=== PATIENT | male | born 1935 | race Caucasian/White ===

== ENCOUNTER 2018-08-01 10:15 | Emergency (ER) | payer MEDICARE, OTHER, SELFPAY ==
[2018-08-01] VITALS (10 sets, daily range): BP systolic 124–146; BP diastolic 58–75; PULSE 68–86; RESP 16–25; TEMP 36.7–37.2; O2SAT 94–99; BMI 30.7
--- NOTE | 2018-08-01 10:39 | EKG12_ITS ---
Test Reason : SOB Blood Pressure : / mmHG Vent. Rate : 074 BPM Atrial Rate : 074 BPM P-R Int : 144 ms QRS Dur : 098 ms QT Int : 396 ms P-R-T Axes : 057 033 016 degrees QTc Int : 439 ms Normal sinus rhythm Normal ECG Confirmed by JOVANI HICKEY, NEO ([id number]), editor in chief ARGELIA QUISPE ([id number]) on 08/03/2018 7:56:26 AM Referred By: Confirmed By:NEO HAHN MD
--- NOTE | 2018-08-01 10:39 | RAD_ITS ---
STUDY: X-RAY CHEST REASON FOR EXAM: Male, 83 years old. Cough and shortness of breath TECHNIQUE: AP COMPARISON: 07/31/2016 FINDINGS: 1.2 cm nodular density in the right upper lobe not evident on the prior study. There is a granuloma in the lateral left upper lobe, stable. There is no demonstrated pleural abnormality. Normal size heart. Normal mediastinum and martha. Normal visualized pulmonary arteries. There is atherosclerotic calcification of the aortic arch with tortuosity. No acute bony process. There is no demonstrated abnormality of the visualized soft tissue structures of the upper abdomen. RAD/Chest 1 View (Portable) IMPRESSION: 1. New nodular (1.2 cm) density in the right upper lobe could represent localized pneumonitis, fibrosis or neoplasm. Follow-up is needed. Electronically Signed: Sandeep Chávez MD at 11:16 EDT , Service support ,
[2018-08-01] MEDS: Ipratropium/Albuterol Sulfate 3 ML AMPUL.NEB INHALATION (11:20)
[2018-08-01] MEDS: Albuterol 2.5 MG/3 ML VIAL.NEB. INHALATION (11:20)
[2018-08-01 11:31] LABS: Absolute Lymphocyte Count 1.68 X10^3/ul (0.83-4.51); Absolute Neutrophil Count 2.5 X10^3/uL (2.0-7.7); Basophil# 0.03 X10^3/uL; Basophil% 0.5 % (0-1); Eosinophil# 0.34 X10^3/uL; Hematocrit 46.2 % (40-54); Hemoglobin 15.6 g/dl (13.0-16.5); Lymphocyte # 1.68 X10^3/ul (4.0); Lymphocyte % 29.5 % (19-41); Mean Corp Hgb Conc 33.8 g/gl (32-36); Mean Corpuscular Hgb 29.5 pg (27.0-32.0); Mean Corpuscular Volume 87.5 fL (80-94); Mean Platelet Vol. 10.6 fl (6.2-12.0); Monocyte% 19.3 % (0-10); Neutrophil # 2.54 X10^3/uL (2.7-7.7); Neutrophil % 44.5 % (47-70); POSITIVE COUNT NO; POSITIVE DIFFERENTIAL NO; POSITIVE MORPHOLOGY NO; Platelet Count 183 K/mm3 (150-450); RBC Distribution Width CV 15.1 % (11.6-14.6); RBC Distribution Width SD 48.8 fl (35.1-43.9); Red Blood Count 5.28 M/mm3 (4.6-6.2); White Blood Count 5.7 K/mm3 (4.4-11.0)
[2018-08-01 11:39] LABS: Anion Gap 3 (5-15); BUN 18 mg/dL (7-18); BUN/Creat Ratio 15.7 RATIO (10-20); Calcium,Total 8.7 mg/dL (8.5-10.1); Chloride 109 mmol/L (98-107); Creatinine, Serum 1.15 mg/dL (0.70-1.30); EST Glomerular Filtration Rate 65 mL/min (>60); Est Glom Filt Rate - Afr Amer 78 mL/min (>60); Estimated Creatinine Clearance 44.69 ml/min; Glucose 110 mg/dL (74-106); Potassium 3.9 mmol/L (3.5-5.1); Sodium Level 142 mmol/L (136-145)
--- NOTE | 2018-08-01 11:48 | CT_ITS ---
STUDY: CT CHEST WITHOUT CONTRAST REASON FOR EXAM: Male, 83 years old. Lung nodule RADIATION DOSAGE (If Supplied By Facility): CTDIvol = ( 14.23 ) mGy, DLP = ( 544.01 ) mGycm TECHNIQUE: Transaxial imaging was performed without the administration of intravenous contrast material. Multiplanar coronal and sagittal images were reformatted. Individualized dose optimization techniques were used for this CT. COMPARISON: Chest x-ray from earlier today. FINDINGS: The nodular density in the right upper lobe evident on the prior chest x-ray is not identified and is compatible with summation artifact on x-ray. A granuloma in the lateral left upper lobe is stable. There is no demonstrated pleural abnormality. Normal heart and pericardium. There are calcifications of the coronary arteries. There are multiple small lymph nodes within the mediastinum, which are normal in size and morphology most compatible with reactive lymph hyperplasia. There are calcified right hilar lymph nodes. Normal unenhanced pulmonary arteries. There is atherosclerotic tortuosity of the aortic arch and descending thoracic aorta. There are multi-level degenerative changes of the thoracic spine. There is a simple left renal cyst. There are granulomas calcifications of the liver and spleen. The adrenal glands are not focally enlarged. Small hiatal hernia is noted. CT/Chest without Contrast IMPRESSION: 1. NO pulmonary nodule/mass. Summation artifact on prior chest x-ray. 2. Chronic changes, as above. Electronically Signed: Sandeep Chávez MD at 12:36 EDT , Service support ,
--- NOTE | 2018-08-01 13:16 | ED.VISSUMM ---
- ER Visit Summary Date of Service: 08/01/18 Chief Complaint: Shortness of breath History of Present Illness: The patient is a 83 M who comes emergency department with shortness of breath. He states on he began to have a cough and feeling poorly. He states he has a headache with a cough. On Thursday he was feeling worse but today is feeling somewhat better than he did yesterday. He notes that he started to produce sputum today. He went to urgent care where he was noted to be wheezing and after treatment was below 90% on the pulse oximeter. Patient also notes some nasal congestion but no vomiting or diarrhea. History of WI hypertension high cholesterol as well as a remote history of lymphoma. He denies any known lung pathology such as asthma or COPD. Non-smoker Physical Examination: Afebrile vital signs are stable Gen: Well-nourished well-developed Head: Normocephalic atraumatic Eyes: Perrl EOMI ENT: TMs clear turbinate edema moist mucous membranes Neck: Supple no lymphadenopathy no JVD nontender CVS: Regular rate rhythm no murmurs normal S1-S2 Respiratory: No distress inspiratory and expiratory wheezing rhonchorous cough chest nontender Abdomen: Soft nontender nondistended normal bowel sounds no masses Back: Nontender Extremity: Nontender no edema Skin: Normal color no rash Neuro: alert orientated ?3 CN II-XII intact normal strength sensation reflexes gait cerebellar Psych: Normal affect normal mood Test Results: CBC and BMP are normal. Influenza negative. EKG sinus at a rate of 74 without ectopy. Chest x-ray showed a possible right upper lobe mass versus pneumonitis. CTA chest was negative for both of those. Emergency Department Course and Treatment: Patient received a DuoNeb and albuterol aerosol. Afterwards he feels significantly improved his lung sounds are now clear he ambulated 95-98%. On the right for him to have an albuterol MDI with spacer as well as burst prednisone. Return if worsening or concerns patient notes understanding of her plan is in agreement. Impression: 1. Acute viral respiratory illness 2. Bronchospasm This note was generated with Mixgaration software. It may contain incorrect words, spelling, and punctuation that were not noted in review of the chart prior to signing ED Disposition - Plan for ED Patient: Disposition: Home or Assisted Living Instructions: Acute Bronchitis, ED Wheezing Prescriptions: Albuterol Inhaler [Ventolin Hfa] 2 puff INHALATION Q4H PRN PRN #1 inhaler PRN Reason: Wheezing Prednisone [Deltasone] 40 mg PO DAILY #10 tab Referrals: Nisa Mejia PA [Primary Care Provider] - 3-5 Days if not improving
== END 2018-08-01 13:36 | disposition home or self-care (01) ==
PROVIDERS: Emergency Provider Emergency Medicine; Family Provider Physician Assistant; PCP Physician Assistant
DX: J06.9 Acute upper respiratory infection, unspecified (principal); J98.01 Acute bronchospasm; I25.2 Old myocardial infarction; I10 Essential (primary) hypertension; E78.00 Pure hypercholesterolemia, unspecified; Z85.72 Personal history of non-Hodgkin lymphomas; Z79.01 Long term (current) use of anticoagulants; Z79.899 Other long term (current) drug therapy
CPT/HCPCS: 71045; 71250; 80048; 85025; 87804; 93005; 94640; 94760; 99285; A4216

== ENCOUNTER → 2019-06-21 10:25 | Outpatient (CLI) | payer MEDICARE, OTHER, SELFPAY ==
[2019-05-31 13:04] VITALS: BMI 31.9
--- NOTE | 2019-06-21 10:30 | ECHOCS_ITS ---
Reason For Study: DYSPNEA Procedure This was a 2D Doppler, Color Flow transthoracic echocardiogram. The study was technically difficult. Contrast injection was performed. Exam performed in department. Left Ventricle Normal size and thickness. The estimated ejection fraction is 65 %. Stage 1 diastolic dysfunction. No regional wall motion abnormalities noted. Right Ventricle Normal size and thickness. Normal systolic function. Atria Normal left atrium. Normal right atrium. Normal atrial septum. Mitral Valve Mild focal mitral valve thickening. Mild mitral annular calcification extending into the posterior leaflet. Trivial mitral valve insufficiency. Tricuspid Valve Normal tricuspid valve. Trivial tricuspid valve insufficiency. Right ventricular systolic pressure estimated to be 35 mmHg. Aortic Valve Trisinus/trileaflet aortic valve. Pulmonic Valve Normal pulmonic valve. Great Vessels Normal aortic root. Normal arch. Normal inferior vena cava. Inferior vena cava collapse with sniff. Pericardium/Pleural No pericardial effusion. Medication 22 gauge I.V. with prn adaptor inserted into right arm. Diluted definity 4.0ml given slow IV push to enhance endocardial definition. MMode/2D Measurements & Calculations LVIDd: 5.0 cm IVSd: 1.1 cm Ao root diam: 3.3 cm LVIDs: 3.4 cm LVPWd: 1.1 cm RVDd: 2.8 cm FS: 32.3 % LAV(MOD-bp): 52.8 ml EDV(MOD-sp4): 118.4 ml SV(MOD-sp4): 83.1 ml LAV(MOD-bp) Indexed: 26.4 ml/m2 ESV(MOD-sp4): 35.3 ml LAV(MOD-sp2): 55.2 ml EF(MOD-sp4): 70.2 % LAV(MOD-sp4): 50.5 ml LA dimension(2D): 4.5 cm LA A4 area: 18.3 cm2 RA A4 area: 12.1 cm2 Time Measurements MV dec time: 0.29 sec Doppler Measurements & Calculations MV E max devendra: 54.0 cm/sec Lat Peak E' Devendra: 8.7 cm/sec Med Peak E' Devendra: 5.3 cm/sec MV A max devendra: 84.2 cm/sec E/E' lat: 6.2 E/E' med: 10.2 MV E/A: 0.64 Ao V2 max: 155.8 cm/sec LV V1 max: 108.3 cm/sec PA V2 max: 135.6 cm/sec Ao max P.7 mmHg LV V1 max P.7 mmHg TR max devendra: 279.3 cm/sec TR max P.3 mmHg Interpretation Summary The estimated ejection fraction is 65 %. Stage 1 diastolic dysfunction. Trivial mitral valve insufficiency. Trivial tricuspid valve insufficiency. Right ventricular systolic pressure estimated to be 35 mmHg. There is no comparison study available. The study was technically difficult. Contrast injection was performed. Ordering Physician: David Sánchez Referring Physician: TEO THAO Performed By: Odette Rouse, FRANCESCA, RVT
== END ==
PROVIDERS: PCP Physician Assistant; Referring Provider Internal Medicine Cardiovascular Disease; Visit Provider Internal Medicine Cardiovascular Disease
DX: R06.09 Other forms of dyspnea (principal); R60.9 Edema, unspecified; I25.10 Atherosclerotic heart disease of native coronary artery without angina pectoris; Z95.5 Presence of coronary angioplasty implant and graft
CPT/HCPCS: 93306; Q9957; A4216; C8929

== ENCOUNTER → 2019-06-24 09:39 | Outpatient (CLI) | payer MEDICARE, OTHER, SELFPAY ==
[2019-05-31 13:04] VITALS: BMI 31.9
--- NOTE | 2019-06-24 09:40 | CDU_ITS ---
Reason For Study: bruits Rt. Velocities/BP Lt. Velocities/BP Prox CCA 139.4/29.8 cm/sec. Prox CCA 95.9/25.6 cm/sec. Mid CCA 77.3/29.8 cm/sec. Mid CCA 94.9/17.6 cm/sec. Dist CCA 104.7/26.1 cm/sec. Dist CCA 112.0/20.6 cm/sec. Prox ICA 163.0/33.6 cm/sec. Prox ICA 90.0/28.6 cm/sec. Mid ICA 112.0/35.3 cm/sec. Mid ICA 108/28.6 cm/sec. Dist ICA 83.8/22.3 cm/sec. Dist ICA 171.8/33.6 cm/sec. Rt. ICA/CCA = 2.1. Lt. ICA/CCA = 1.8. Prox ECA 253.1/65.6 cm/sec. Prox ECA 122.9/26.1 cm/sec. Rt. Vert. 57.4/12.4 cm/sec. Right Extracranial There is heterogeneous, irregular atherosclerotic plaque noted in the right common carotid artery. There is heterogeneous, irregular atherosclerotic plaque noted in the right internal carotid artery. There is heterogeneous, irregular atherosclerotic plaque noted in the right external carotid artery. Antegrade flow is noted in the right vertebral artery. Left Extracranial There is heterogeneous, irregular atherosclerotic plaque noted in the left common carotid artery. There is heterogeneous, irregular atherosclerotic plaque noted in the left internal carotid artery. There is heterogeneous, irregular atherosclerotic plaque noted in the left external carotid artery. Flow could not be demonstrated in the left vertebral artery. Procedure Carotid Duplex [id number]. The exam was diagnostic. Exam performed in department. Interpretation Summary Flow could not be demonstrated in the left vertebral artery. Calcific plaque with shadowing right proximal common carotid. Calcific plaque with shadowing at the proximal right external carotid and internal carotid arteries 50-69% stenosis right proximal internal carotid >50% stenosis right external carotid Calcific plaque with shadowing distal left common carotid and proximal left internal and external carotid arteries 50-69% stenosis left internal carotid <50% stenosis left external carotid Patent, antegrade right vertebral Ordering Physician: David Sánchez Performed By: Dinesh Parker RVT
== END ==
PROVIDERS: PCP Physician Assistant; Referring Provider Internal Medicine Cardiovascular Disease; Visit Provider Internal Medicine Cardiovascular Disease
DX: R09.89 Other specified symptoms and signs involving the circulatory and respiratory systems (principal); E78.00 Pure hypercholesterolemia, unspecified
CPT/HCPCS: 93880

== ENCOUNTER → 2019-07-01 10:31 | Outpatient (CLI) | payer MEDICARE, OTHER, SELFPAY ==
[2019-05-31 13:04] VITALS: BMI 31.9
--- NOTE | 2019-07-01 10:32 | STEWCON_ITS ---
Reason For Study: CAD, ARGUETA Stress Results Protocol: Jarvis Protocol WITH DEFINITY Maximum Predicted HR: 137 bpm Target HR: 116 bpm % Maximum Predicted HR: 89 % DurationHeart Rate Stage (mm:ss) (bpm) BP Comment Baseline 64 150/70No Chest Pain; 4 ML Diluted Definity Jarvis Protocol Stage I 3:00 96 180/72No Chest Pain Jarvis Protocol Stage II 3:00 105 194/78No Chest Pain; Mild Dyspnea Jarvis Protocol Stage III 3:00 122 204/70No Chest Pain; Can't Get Air Recovery 71 138/70No Chest Pain; No Dyspnea Stress Duration: 9:00 mm:ss Maximum Stress HR: 122 bpm METS: 10 Baseline Echocardiogram Findings The estimated ejection fraction is 65 %. Stress Echo Wall motion Data Resting WM Intermediate WM Stress WM Resting Wall Motion Wall Motion Stress No regional wall motion No regional wall motion abnormalities noted. abnormalities noted. EKG Data The baseline ECG displays normal sinus rhythm. The patient exercised according to the regular Jarvis protocol for a total duration of 9:00. The maximum heart rate attained was 122 beats per minute. This was 89% of maximum predicted heart rate. The patient exercised into stage 4 of the Jarvis protocol. During stress, there were no ST or T wave changes noted to suggest ischemia. No clinical angina was noted. Interpretation Summary The estimated ejection fraction is 65 %. Normal, adequate, treadmill echocardiogram. Negative for ischemia by EKG and echocardiographic criteria. Rare PVCs noted. Hypertensive blood pressure response to exercise. Average exercise capacity for age. Test terminated due to the attainment of target heart rate. Final LVEF is 75%. Decrease sensitivity due to poor echo windows requiring Definity agent. Patient tolerated the procedure well. No complications. The study was technically difficult. Contrast injection was performed. Ordering Physician: David Sánchez Referring Physician: Levon Mejia Performed By: Hakeem Klein RCS
== END ==
PROVIDERS: PCP Physician Assistant; Referring Provider Internal Medicine Cardiovascular Disease; Visit Provider Internal Medicine Cardiovascular Disease
DX: I25.10 Atherosclerotic heart disease of native coronary artery without angina pectoris (principal); R06.09 Other forms of dyspnea; R60.9 Edema, unspecified; Z95.5 Presence of coronary angioplasty implant and graft
CPT/HCPCS: 93017; 93350; Q9957; A4216; C8928

== ENCOUNTER → 2019-11-14 08:25 | Outpatient (CLI) | payer MEDICARE, OTHER, SELFPAY ==
[2019-10-27 10:32] VITALS: BMI 28.0
[2019-11-14 10:16] LABS: AST(SGOT) 14 U/L (15-37); Alanine Aminotransfer ALT/SGPT 17 U/L (16-61); Albumin, Serum 3.5 g/dL (3.2-5.0); Alkaline Phosphatase 113 U/L (45-117); Bilirubin, Direct 0.18 mg/dL (0.00-0.30); Cholesterol 136 mg/dL (200); Globulin 3.7 g/dL (2.2-4.2); High Density Lipoprotein 50 mg/dL; Protein, Total 7.2 g/dL (6.4-8.2); Triglycerides 39 mg/dL; Very Low Density Lipoprotein 8 mg/dL (5-40)
== END ==
PROVIDERS: PCP Physician Assistant; Referring Provider Internal Medicine Cardiovascular Disease; Visit Provider Internal Medicine Cardiovascular Disease
DX: E78.00 Pure hypercholesterolemia, unspecified (principal)
CPT/HCPCS: 36415; 80061; 80076

== ENCOUNTER 2020-06-19 21:23 | Emergency (ER) | payer MEDICARE, OTHER, SELFPAY ==
[2019-10-27 10:32] VITALS: BMI 28.0
[2020-06-19] VITALS (11 sets, daily range): BP systolic 146–179; BP diastolic 70–110; PULSE 57–66; RESP 14–20; TEMP 36.8; O2SAT 94–96; BMI 31.4
--- NOTE | 2020-06-19 21:26 | CT_ITS ---
STUDY: CT HEAD STROKE PROTOCOL W/O CONTRAST INJECTION REASON FOR EXAM: Male, 85 years old. Neuro deficit, acute, stroke suspected RADIATION DOSAGE (If Supplied By Facility): CTDIvol = ( ) mGy, DLP = ( ) mGycm TECHNIQUE: Transaxial CT imaging of the brain was performed without administration of intravenous contrast material. Individualized dose optimization techniques were used for this CT. COMPARISON: No relevant priors. FINDINGS: Hypodensity and sulcal effacement in the medial aspect of the right occipital lobe appears to represent an acute to subacute infarct. Mild to moderate volume loss and hypodensity in the right frontal lobe is compatible with sequela from previous infarction. Normal soft tissue structures. Normal calvarium. There is moderate cerebral atrophy with widening of the extra-axial spaces and ventricular dilatation. There are areas of decreased attenuation within the white matter tracts of the supratentorial brain, consistent with microvascular disease changes. Normal basal ganglia and thalami. Normal brainstem. Normal cerebellum. There is no intracranial hemorrhage. Normal visualized paranasal sinuses. CT/STROKE Brain/Head without Cont IMPRESSION: 1. Hypodensity and sulcal effacement in the medial aspect of the right occipital lobe appears to represent an acute to subacute infarct. 2. Old right frontal lobe infarct with mild to moderate volume loss. N.B. : The above information has been verbally conveyed by Fan Saldivar MD to Dr James MD, on 06/19/2020 21:43:33 (ET). Electronically Signed: Fan Saldivar MD at 21:44 EST , Service support ,
--- NOTE | 2020-06-19 21:26 | EKG12_ITS ---
Test Reason : DYSRHYTHMIA Blood Pressure : / mmHG Vent. Rate : 057 BPM Atrial Rate : 057 BPM P-R Int : 142 ms QRS Dur : 100 ms QT Int : 436 ms P-R-T Axes : 057 032 014 degrees QTc Int : 424 ms Sinus bradycardia Otherwise normal ECG Confirmed by JOVANI HICKEY, NEO ([id number]), editor & co founder ARGELIA QUISPE ([id number]) on 06/20/2020 12:52:39 PM Referred By: CRISTIANA Confirmed By:NEO HAHN MD
[2020-06-19 21:49] LABS: Absolute Lymphocyte Count 2.13 X10^3/uL (0.83-4.51); Basophil# 0.05 X10^3/uL; Basophil% 0.8 % (0-1); Eosinophils% 9.1 % (0-5); Hematocrit 44.9 % (40-54); Hemoglobin 14.7 g/dL (13.0-16.5); Lymphocyte # 2.13 X10^3/ul (4.0); Lymphocyte % 32.2 % (19-41); Mean Corp Hgb Conc 32.7 g/dL (32-36); Mean Corpuscular Hgb 29.5 pg (27.0-32.0); Mean Corpuscular Volume 90.2 fL (80-94); Mean Platelet Vol. 10.3 fl (6.2-12.0); Monocyte# 0.84 X10^3/uL; Monocyte% 12.7 % (0-10); NRBC Flagged by Analyzer 0 % (0-5); Neutrophil # 2.98 X10^3/uL (2.7-7.7); Neutrophil % 44.9 % (47-70); Platelet Count 263 K/mm3 (150-450); RBC Distribution Width CV 14.1 % (11.6-14.6); RBC Distribution Width SD 46.5 fl (35.1-43.9); Red Blood Count 4.98 M/mm3 (4.6-6.2); White Blood Count 6.6 K/mm3 (4.4-11.0)
[2020-06-19 21:54] LABS: Partial Thromboplast Time 28.3 Seconds (24.1-36.2); Prothrombin Time (Protime)PT. 13.1 SECONDS (11.7-14.9)
[2020-06-19 22:05] LABS: Anion Gap 4 (5-15); BUN 25 mg/dL (7-18); BUN/Creat Ratio 18.7 RATIO (10-20); Calcium,Total 9.1 mg/dL (8.5-10.1); Chloride 106 mmol/L (98-107); Creatinine, Serum 1.34 mg/dL (0.70-1.30); EST Glomerular Filtration Rate 54 mL/min (>60); Est Glom Filt Rate - Afr Amer 65 mL/min (>60); Glucose 105 mg/dL (74-106); Potassium 3.6 mmol/L (3.5-5.1); Sodium Level 143 mmol/L (136-145)
--- NOTE | 2020-06-19 22:11 | ED.DCSUM_ITS ---
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 They state that at 830 the patient went into the restroom. His heard him sneeze several times. When he did not come out immediately she went to check on him and he was having difficulty pulling his pants up and could not use his left arm. He had significantly slurred speech. On arrival to the ED EMS notes the patient's symptoms are improving. Patient's only complaint is mild pain around his right eye. He denies falling or injuring himself. EMS had initially advised us that he was on Eliquis every other day, however after arrived she states that was Plavix that he is on, not Eliquis. 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 Luis Wilson, [facility]; 01/12/2004: Cutting balloon utilized to dilate in-stent restenosis; 3.0 X 8.0 TAXUS HOLLY to ostium of LAD proximal to previously placed stent Past Medical History - Allergies and Home Meds Allergies/Adverse Reactions: Allergies iodine Allergy (Severe, Verified 09/01/19 10:05) swelling: clarify at appt re; iodine dye shellfish derived Allergy (Verified 09/01/19 10:05) Anaphylaxis Kiepcxk-Epl-Ctu Reductase Inhibitor Adverse Reaction (Intermediate, Verified 09/01/19 10:05) intolerance; myalgias Primary Care Physician: Nisa Mejia PA [Primary Care Provider] - Prior records reviewed: Yes Lives: Spouse/ Significant Other Smoking Status: Never smoker Review of Systems General: Denies: Chills, Fever Eyes: Denies: Visual changes - bilaterally ENT: Denies: Bilateral ear pain Cardiovascular: Denies: Chest pain Respiratory: Denies: Dyspnea Gastrointestinal: Denies: Abdominal pain, Nausea, Vomiting Neurological: Reports: Headache, Weakness Hematologic: Denies: Easy bruising, Easy bleeding Allergy: Denies: Uticaria Physical Exam Vital Signs/Narrative: Vital Signs Temp Pulse Resp BP Pulse Ox 06/19/20 21:57 59 L 20 H 146/72 H 94 06/19/20 21:44 96 06/19/20 21:41 98.3 F 59 L 18 154/75 H 96 06/19/20 21:25 98.3 F 66 18 166/110 H 95 Inital Vital Signs reviewed: Yes General: Well nourished, Well developed Head: Normocephalic ENT: Moist mucous membranes Cardiovascular: Regular rate, Regular rhythm Respiratory: No distress, CTA bilaterally Abdomen: Soft, Nontender Skin: Normal color Neurological: Alert, Oriented x3, - - Patient alert and oriented. He does have some slurred speech, however is also edentulous and does not have his dentures. Slight loss of gaze to the left. Able to hold both arms and legs up off the bed without difficulty. No drift noted. Sensation intact. Diagnostic/Tx/Re-eval Impressions Brain CT 06/19/20 21:26 IMPRESSION: 1. Hypodensity and sulcal effacement in the medial aspect of the right occipital lobe appears to represent an acute to subacute infarct. 2. Old right frontal lobe infarct with mild to moderate volume loss. N.B. : The above information has been verbally conveyed by Fan Saldivar MD to Dr James MD, on 06/19/2020 21:43:33 (ET). Electronically Signed: Fan Saldivar MD at 21:44 EST , Service support , ADDENDUM: 06/19/202150 IMPRESSION: 1. Hypodensity and sulcal effacement in the medial aspect of the right occipital lobe appears to represent an acute to subacute infarct. 2. Old right frontal lobe infarct with mild to moderate volume loss. N.B. : The above information has been verbally conveyed by Fan Saldivar MD to Dr James MD, on 06/19/2020 21:43:33 (ET). Electronically Signed: Fan Saldivar MD at 21:44 EST , Service support , 06/19/20 21:26 Chest 1 View [RAD] Stat STROKE Brain/Head without Cont [CT] Stat Laboratory Results 06/19/20 06/19/20 06/19/20 21:35 21:35 21:35 WBC 6.6 RBC 4.98 Hgb 14.7 Hct 44.9 MCV 90.2 MCH 29.5 MCHC 32.7 RDW Std Deviation 46.5 H RDW Coeff of Ed 14.1 Plt Count 263 MPV 10.3 Immature Gran % (Auto) 0.300 Neut % (Auto) 44.9 L Lymph % (Auto) 32.2 Pine % (Auto) 12.7 H Eos % (Auto) 9.1 H Baso % (Auto) 0.8 Absolute Neuts (auto) 3.0 Absolute Lymphs (auto) 2.13 Nucleated RBC % 0 PT 13.1 INR 1.0 APTT 28.3 Sodium 143 Potassium 3.6 Chloride 106 Carbon Dioxide 33.0 H Anion Gap 4 L BUN 25 H Creatinine 1.34 H Estim Creat Clear Calc 35.70 Est GFR (MDRD) Af Amer 65 Est GFR (MDRD) Non-Af 54 L BUN/Creatinine Ratio 18.7 Glucose 105 Calcium 9.1 Troponin I < 0.015 - EKG Initial EKG Interpretation: Sinus Bradycardia - Sinus bradycardia 57 bpm. No acute ischemia. - Medical Decision Making Patient was seen immediately on arrival in the EMS bay. After quick examination patient was taken emergently to CT. On review of records patient had noted allergy to iodine and shellfish which caused anaphylaxis. In light of this CTA was not undertaken. On arrival back to the emergency department radiologist called with CT report. They report old frontal infarcts. There is a right occipital lobe infarct that appears acute or subacute. I was asked to come to the room as the neurologist from [facility] was on the computer. These findings were discussed with her. After significant discussion with the family and neurologist they have agreed to give TPA. Because he is at slightly higher risk they are recommending patient be transferred immediately to [facility]. There is significant delay for ground transport and we will attempt air transport if possible. Addendum: TPA was started. I was asked by the nursing staff to come back to the room as the patient had some bleeding in his mouth. On examination he has 2 broken teeth at the gumline of his mandible, otherwise edentulous. He has mild bleeding around both of these sites. Bleeding is easily controlled with compression with gauze pads. TPA is restarted and signout given to flight physician. - Critical Care Time Critical care time (excluding procedures): 30-74 minutes ED Disposition - Plan for ED Patient: Disposition: [facility] Diagnosis: CVA (cerebral vascular accident) Referrals: Nisa Mejia PA [Primary Care Provider] -
[2020-06-19] MEDS: 0.9% Normal Saline 1,000 ML 100 ML IV (22:45)
--- NOTE | 2020-06-19 22:54 | ED.RN ---
at 2247 pt's tongue had fresh red blood on it and lips lined with blood, ATP stopped, Dr. Ramirez informed of same. pt had active bleeding from two small nubs of teeth on bottom gum. Pressure applied by and ATP resumed per Dr. Ramirez.
== END 2020-06-19 23:08 | disposition short-term general hospital (02) ==
PROVIDERS: Emergency Provider Emergency Medicine; PCP Physician Assistant
DX: I63.9 Cerebral infarction, unspecified (principal); R47.81 Slurred speech; E03.9 Hypothyroidism, unspecified; E78.5 Hyperlipidemia, unspecified; N40.0 Benign prostatic hyperplasia without lower urinary tract symptoms; I65.29 Occlusion and stenosis of unspecified carotid artery; Z88.8 Allergy status to other drugs, medicaments and biological substances; Z95.5 Presence of coronary angioplasty implant and graft; Z79.02 Long term (current) use of antithrombotics/antiplatelets; Z79.82 Long term (current) use of aspirin; Z79.899 Other long term (current) drug therapy
CPT/HCPCS: 70450; 80048; 84484; 85025; 85610; 85730; 93005; 96365; 99285; J2997; J7030; A4216

== ENCOUNTER 2020-08-22 09:00 | Outpatient (RCR) | payer MEDICARE, OTHER, SELFPAY ==
[2020-06-19 21:42] VITALS: BMI 31.4
--- NOTE | 2020-06-28 11:28 | HP.PTEVAL ---
Patient's Visit Information TIEN FULLER is a 85 year old M referred to Physical Therapy by BOUCHRA LOVE with a diagnosis of ISCHEMIC STROKE. Date of Evaluation: 06/28/20 Physical Therapist: Alejandro Melchor, PT, Cert MDT, OCS - Visit Plan Frequency: 1-2x /Week Duration: 4 Weeks Plan: PT INTEREVTION PROGRESSIVE BALANCE PROGRAM ,ENDURANCE,STRENGTHENING BLE AND GAIT TRAINING - Subjective This 85 y/o male presents to physical therapy with CVA affecting left side. Patient had stoke 06/19/20 ,spouse found patient with unale to left left arm and unable to walk. Patient went to ER CATSCAN found to CVA,then life flighted to [place]. Patient was d/c 3 days later. Recommeded outpatient PT. Patient uses QC with gait. Patient has min assist with ADLS ,able to get in/ot tub/dress. Spouse does most of cooking and cleaning. C/O parathesia left hand.Patient lives 2 story home with 4steps with rail. Patient uses cane out side.No falls recently . Patient major c/o has risidual weakness left side.Patient has dizziness when getting up. Pateint condition of CVA affects QOL.DME: fww ,cane beside commode. VOCATION: retired. SOCAIL: - Objective POSTURE:mild foward posture. GAIT: ambaultes with QC with point gait to PT dept,ambulates with no device reciprocal pattern slow angelique. BALANCE: good-. STAIRS: asecnd/desend stairs with rail on step at a time. NEURO: C/O'S parathesia/tingling ,light touch intact. TONE: WFL. AROM: BLE AROM WFL KNEE FLEXION 120 degrees. MMT: quads/hams 4/5,hip flexion flexion,hip abd 4-/5 ,ankle 4/5 - Balance Scores Functional Gait Assessment Score: 16 % Disability: 46.6700 CATSIB Score (Max score 120 seconds): 60 - Goals Goal 1:: I with HEP Goal Time Frame: 4-6 Weeks Goal 2:: Ambulate with no device community distances Goal Time Frame: 4-6 Weeks Goal 3:: Patient to improve CATSIB by 5 points or > to improve balance Goal Time Frame: 4-6 Weeks Goal 4:: Patient to improve functional gait assessment by 10 points or > to improve gait and balance Goal Time Frame: 4-6 Weeks Goal 5:: Patient to improve LFES score by 5 -10 points or > to improve QOL. Goal Time Frame: 4-6 Weeks - Rehabilitation Potential Physical Therapy Diagnosis: This 85 y/o male persents with CVA with derease gait,balance weakness thus benifit from skilled PT Rehabilitation Potential: Good - Anticipated Interventions Patient/Client Instruction: Educate patient on: Condition, Plan of Care For the Purpose of:: To decrease pain, To increase ROM, To improve muscle performance and motor function, To improve ability to perform ADL's, To increase tolerance to activity/condition/position, To improve performance and independence with ADL's, To improve ability of physical actions for home/community/work/leisure, To improve gait and locomotor functions, To improve endurance, To improve balance, To improve safety with gait Therapeutic Exercise to Include: Strength training, Endurance training, Balance training, Gait and locomotor training Comment: BLE For the Purpose of:: To improve muscle performance and motor function, To improve ability to perform ADL's, To increase tolerance to activity/condition/position, To improve ability of physical actions for home/community/work/leisure, To improve gait and locomotor functions, To increase flexibility/ROM, To improve endurance, To improve balance, To improve safety with gait Thank you for the opportunity to evaluate your patient. For Medicare and Medicare HMO plans, please review the plan of care and approve it. It will need to be FAXED BACK to us at [phone] for Medicare purposes. For Medicare only, by signing this I certify the plan of care. Please let me know if there are questions or concerns regarding this plan of care. Physician Signature: Date:
--- NOTE | 2020-06-28 13:09 | HP.OTEVAL ---
Patient's Visit Information TIEN FULLER is a 85 year old M, referred to Occupational Therapy by BOUCHRA LOVE, with a diagnosis of CVA. Date of Evaluation: 06/28/20 Occupational Therapist: Pascale Whitney, CHAMP/Praveen, CHT - Subjective This 85 year old male was seen for OT eval with dx of CVA. 2020. pt was home with and was unable to use left UE. called 911 pt was taken to [facility] and sent to [facility]. pt was there for three days on rehab and returned home with . Both states things are going well. Pt would like to increase his ambulation and balance. with his left arm states coordination or dexterity is slower or limited. - ADLs Comments: pt lives with in two story home with 4 entry steps -. pt has walkin shower. pt states he is dressing slower but completes without assist. tingiling hin left UE from CVA - ROM ROM Comments: pt demo ROM of BUE WNL - Strength Shoulder: right 5/5 left 5/5 Elbow: right 5/5 left 5/5 Kickboxing Instructor: right 60# left 60# Lateral Pinch: right 12# left 13# Tripod Pinch: right 10# left 10# Strength Comments: pt demo with good functional strength - Sensation Stereognosis: Normal - Right, Normal - Left Kinesthesia: Abnormal - Right, Normal - Left Proprioception: Abnormal - Right, Normal - Left - Quick DASH-Disab of Arm,Shoulder& Hand Quick DASH Score: 54.5450 - Goals Goal:: pt will demo the ability to manipulate 10 coins [id number] to finger without dropping coins by d/c. pt will demo the ability to button and unbutton 8 buttons without missing buttons by d/c - Rehabilitation General Assessment: Pt demo with left UE ROM and strength WNL. pt demo with increase difficulty with FMS and would benefit from requested HEP to increase pts speed with buttons, fasteners, and manipulation of coins. Therapist ed. pt and pts spouse on Fine motor and dexterity tasks to increase pts ind. with ADLs and IADLs. pt and pts spouse demo understanding and agree to HEP. Rehabilitation Potential: Good - Anticipated Interventions Fine Motor Coord/Tae, Home Program - Visit Plan TEXT: Thank you for the opportunity to evaluate your patient. For Medicare and Medicare HMO plans, please review the plan of care and approve it. It will need to be FAXED BACK to us at [phone] for Medicare purposes. Please let me know if there are questions or concerns regarding this plan of care. Physician Signature: Date:
--- NOTE | 2020-06-28 13:09 | HP.OTDCSUM ---
It has been my pleasure to treat TIEN FULLER under orders from BOUCHRA LOVE, for the diagnosis of CVA for a total of 1 visit(s). Please see the following information for a summary of their discharge status. Patient Goals: Improve Fine Motor Skills, Use Hand/Wrist/Arm Normally Again Goal:: pt will demo the ability to manipulate 10 coins [id number] to finger without dropping coins by d/c. pt will demo the ability to button and unbutton 8 buttons without missing buttons by d/c If there are questions or concerns regarding this patient's occupational therapy, please fell free to call me at [phone]. Thank you for the referral of this patient. Sincerely, Pascale Whitney, OTR/L, CHT
--- NOTE | 2020-08-22 09:39 | HP.PTDCSUM ---
It has been my pleasure to treat TIEN FULLER referred by BOUCHRA LOVE, with the diagnosis of ISCHEMIC STROKE for a total of 9 visit(s). Discharge Date: Please see the following information for a summary of their discharge status. Subjective: Doing good no falls. C/O some dizziness % Improvement: 80 Objective/Function: POSTURE: WFL. GAIT: reciprocal pattern. MMT: quads/hams 4/5,hip flexion 4/5. STAIRS: alternating with rails. BALANCE: good- Goal 1:: I with HEP Goal Progress: Goal Met Goal 2:: Ambulate with no device community distances Goal Progress: Goal Met Goal 3:: Patient to improve CATSIB by 5 points or > to improve balance Goal Progress: Goal Met Goal 4:: Patient to improve functional gait assessment by 10 points or > to improve gait and balance Goal Progress: Goal Met Goal 5:: Patient to improve LFES score by 5 -10 points or > to improve QOL. Goal Progress: Goal Met Plan: PT INTEREVTION PROGRESSIVE BALANCE PROGRAM ,ENDURANCE,STRENGTHENING BLE AND GAIT TRAINING If there are questions or concerns regarding this patient's physical therapy, please feel free to call me at [phone]. Thank you for the referral of this patient. Sincerely, Alejandro Melchor, PT, Cert MDT, OCS
== END 2020-08-22 19:00 | disposition home or self-care (01) ==
LOC: PT 09:00
PROVIDERS: PCP Physician Assistant
DX: Z86.73 Personal history of transient ischemic attack (TIA), and cerebral infarction without residual deficits (principal)
CPT/HCPCS: 97110; 97162; 97165; 97166; 97530

== ENCOUNTER 2021-02-24 02:58 | Inpatient (IN) | payer MEDICARE, OTHER, SELFPAY ==
[2021-02-24] VITALS (15 sets, daily range): BP systolic 116–164; BP diastolic 70–99; PULSE 55–70; RESP 16–18; TEMP 36.1–36.9; O2SAT 94–98; BMI 29.8; BMI 29.0
--- NOTE | 2021-02-24 03:15 | EKG12_ITS ---
Test Reason : CP Blood Pressure : / mmHG Vent. Rate : 061 BPM Atrial Rate : 061 BPM P-R Int : 146 ms QRS Dur : 100 ms QT Int : 432 ms P-R-T Axes : 057 028 120 degrees QTc Int : 434 ms Normal sinus rhythm ST & T wave abnormality, consider anterolateral ischemia Abnormal ECG Confirmed by HUE HICKEY, DANIELA ([id number]), supervising editor news reel ARGELIA QUISPE ([id number]) on 02/26/2021 9:40:26 AM Referred By: BB Confirmed By:DANIELA SWANN MD
--- NOTE | 2021-02-24 03:16 | ED.VIS.CHEST ---
HPI History of Present Illness Chief Complaint: Chest Pain Informant: patient and EMS Onset/Context/Timing Onset: Hours (4) Activity at onset: sudden and rest Timing: Continuous Quality: Positive for Pressure Location: Substernal (without radiation) Current Severity: Moderate Maximum Severity: Moderate Worsened By: Nothing; Not Worsened By Breathing Relieved By: Nothing Associated Symptoms: Negative for Nausea, Diaphoresis, Dyspnea, Cough, Fever, Lightheadedness and Palpitations Narrative Narrative: Patient states he has been having daily episodes of chest discomfort for the last several weeks at least. He states they are very brief, substernal pressure, by the time he goes to sit down it is gone. He states that started tonight at rest and has been present the entire time and has not gone away which is unusual in the last several weeks. He has 2 stents that were placed in 2003, he states this pain is nothing compared to what he had then which is why he has not come to the emergency department until now. He follows with a registered client associate who is in [place]. He is on aspirin and clopidogrel and has been compliant with them, he was last given aspirin prior to coming here. He states his left hand is a little tingly and his arm uncomfortable, but that has been the case since he had a stroke earlier in the year. He states the discomfort in his left upper extremity is worse now that his chest started bothering him. PE Risk Factors: Positive for Recent Travel/Surgery (Trip to and from [place] almost 1 month ago); Negative for Recent Immobilization, Prior DVT or PE, Cancer and OCP + Smoking + >/=35 PFSH PFSH Medical History Arteriosclerotic cardiovascular disease BPH (benign prostatic hyperplasia) Carotid artery disease Carotid stenosis, bilateral Dyspnea on exertion Edema History of cancer tonsil (1983) Hyperlipidemia Hypothyroidism Stricture of esophagus Home Medications clopidogrel 75 mg PO DAILY 07/31/16 [History Last Taken Unknown] vit C,L-Eo-kwoqa-lutein-zeaxan 1 ea PO BID 07/31/16 [History Last Taken Unknown] ezetimibe 10 mg PO QHS 08/01/18 [History Last Taken Unknown] aspirin 81 mg tablet,delayed release 81 mg PO DAILY 05/30/19 [History Last Taken Unknown] cholecalciferol (vitamin D3) 125 mcg (5,000 unit) disintegrating tablet 2,000 unit PO DAILY 05/30/19 [History Last Taken Unknown] levothyroxine 50 mcg tablet 50 mcg PO DAILY 05/30/19 [History Last Taken Unknown] furosemide 40 mg tablet 40 mg PO DAILY #90 tab 05/31/19 [Rx Last Taken Unknown] lactobacillus combination no.9 4 billion cell capsule 4,000 mmu cells PO DAILY 05/31/19 [History Last Taken Unknown] multivitamin 1 tab PO DAILY 05/31/19 [History Last Taken Unknown] carvedilol 3.125 mg tablet 3.125 mg PO BID #60 tab 07/05/19 [Rx Last Taken Unknown] pravastatin 20 mg PO DAILY 02/24/21 [History Last Taken Unknown] Allergy/AdvReac Type Severity Reaction Status Date / Time iodine Allergy Severe swelling: Verified 02/24/21 03:05 clarify at appt re; iodine dye shellfish derived Allergy Anaphylaxis Verified 02/24/21 03:05 Zpwaebq-Nkl-Vde Reductase AdvReac Intermediate intolerance; Verified 02/24/21 03:05 Inhibitor myalgias Family History (Updated 09/01/19 @ 10:04 by Martha Allen) Brother Brain aneurysm Other CAD (coronary artery disease) Surgical History History of cataract extraction History of colonoscopy history of left clavicle fracture History of left heart catheterization (02/03/04) History of tonsillectomy Stented coronary artery Social History Smoking Status: Never smoker ROS ROS ED Constitutional Constitutional ED: Denies chills or fever(s) Eyes Eyes: Denies change in vision or diplopia ENT ENT ED: Denies rhinorrhea or sore throat Cardiovascular Cardiovascular: Reports as per HPI and chest pain; Denies palpitations Respiratory/Chest Respiratory/Chest: Denies cough or dyspnea Gastrointestinal Gastrointestinal: Denies abdominal pain, diarrhea, nausea or vomiting Genitourinary Genitourinary ED: Denies dysuria or hematuria Musculoskeletal Musculoskeletal: Denies back pain or neck pain Integumentary Denies abscess or rash Neurologic Neurologic: Reports paresthesias LUE; Denies headache(s) or weakness Psychiatric Psychiatric: Denies anxiety or suicidal thoughts Hematologic/Lymphatic Hematologic/Lymphatic: Reports easy bleeding and easy bruising EXAM Physical Exam Const Vital Signs: 02/24/21 02:59 02/24/21 03:05 02/24/21 03:54 Temperature 98 F Temperature Source Oral Pulse Rate 70 Respiratory Rate 18 Respiratory Effort Normal Respiratory Pattern Normal Blood Pressure 164/99 H Blood Pressure Mean 120 Pulse Ox 97 96 Oxygen Delivery Method Room Air Room Air 02/24/21 03:57 02/24/21 04:01 Temperature Temperature Source Pulse Rate 57 L 68 Respiratory Rate 16 Respiratory Effort Respiratory Pattern Blood Pressure 159/73 H 126/77 H Blood Pressure Mean 93 Pulse Ox 96 Oxygen Delivery Method Room Air Positive well nourished and well developed Constitutional Narrative: No diaphoresis General Appearance ED: well developed and NAD HEENT Reports moist mucous membranes normocephalic and atraumatic Eyes PERRL and EOMs intact bilaterally Neck full ROM and supple Chest Wall Chest: Negative for tenderness Resp normal respiratory effort and clear to auscultation bilaterally Cardio regular rate, regular rhythm and no murmurs Cardio Narrative: Equal bilateral 2+/4 pulses with symmetry, radial Rate: Negative for tachycardic GI non-tender and non-distended Auscultation: normoactive bowel sounds Palpation: soft Back/Spine no CVA tenderness General Back: other FROM Extremity normal to inspection General Extremety ED: Negative for edema, pulses abnormal or tenderness General Extremity: Negative for edema or pulses abnormal Neuro oriented x3, CN's II-XII intact bilaterally and no sensory deficits noted Sensorium / Orientation: awake and alert Motor Exam: strength 5/5 throughout Skin no rashes or lesions noted and no wounds Heart Score History: Moderately Suspicious ECG: Nonspecific Repolarization Age: >/= 65 years Risk Factors: >/= 3 Risk Factors or History of CAD Troponin: >1 - <3 Normal Limit Score: 7 MDM MDM MDM Narrative Medical decision making narrative: Aspirin given prior to arrival, he was given a nitroglycerin here, his discomfort was already improving, and after the nitroglycerin his left arm discomfort is resolved and his chest pain is barely there, a 1-2/10. EKG was repeated. The ST elevations are resolved, there are no ST depressions, his T waves are inverted across the precordium almost completely now. Looking back at EMS EKGs that I evaluated initially, he did not have enough ST elevation to be consistent with a STEMI without seeing the patient first, he presents very well looking well, complaining of mild chest discomfort that was much improved after only receiving aspirin from EMS/significant other, they repeated the EKG prior to the patient's arrival here and he did start having biphasic T waves in lead V2, concerning for possible Wellen syndrome. Discussed all this with Dr. Clinton he agrees with admitting the patient on heparin, he does not meet STEMI criteria at this time, and will see the patient in consultation for likely catheterization at some point later. Lab Data Attestation: I reviewed the patient's lab results. Labs: Laboratory Results - last 24 hr 02/24/21 02/24/21 03:06 03:06 WBC 6.3 RBC 4.84 Hgb 14.6 Hct 43.5 MCV 89.9 MCH 30.2 MCHC 33.6 RDW Std Deviation 46.8 H RDW Coeff of Ed 14.1 Plt Count 209 MPV 10.5 Immature Gran % (Auto) 0.300 Neut % (Auto) 51.8 Lymph % (Auto) 24.0 Hubbard % (Auto) 12.5 H Eos % (Auto) 10.6 H Baso % (Auto) 0.8 Absolute Neuts (auto) 3.3 Absolute Lymphs (auto) 1.52 Nucleated RBC % 0 Sodium 140 Potassium 3.8 Chloride 104 Carbon Dioxide 30.0 Anion Gap 6 BUN 21 H Creatinine 0.97 Estim Creat Clear Calc 51.16 Est GFR (MDRD) Af Amer 94 Est GFR (MDRD) Non-Af 78 BUN/Creatinine Ratio 21.6 H Glucose 119 H Calcium 9.0 Troponin I High Sens 206 H* Radiography Chest X-Ray - ED: 1 View, Read by ED Physician, No Acute Disease and Chronic Changes EKG Initial EKG: Attestation: I personally reviewed and interpreted this EKG as follows: Interpretation: Sinus Rhythm, Inverted T-Waves (V3-6, 1/aVL) and S-T Elevation (Concave less than 1 mm V1-[address] depressions) Prior EKG tracings: available for review (06/19/2020) Prior: Changed Follow-up EKG: Attestation: I personally reviewed and interpreted this EKG as follows: Interpretation: Sinus Rhythm and Inverted T-Waves (V2-6) Comments: Resolution of ST elevations anteriorly Discharge Plan Dx/Rx/DC Orders Clinical Impression: Unstable angina, Arteriosclerotic cardiovascular disease Disposition Disposition: Acute Care Hospital [facility]
[2021-02-24 03:26] LABS: Absolute Lymphocyte Count 1.52 X10^3/uL (0.83-4.51); Absolute Neutrophil Count 3.3 X10^3/uL (2.0-7.7); Basophil# 0.05 X10^3/uL; Basophil% 0.8 % (0-1); Eosinophil# 0.67 X10^3/uL; Eosinophils% 10.6 % (0-5); Hematocrit 43.5 % (40-54); Hemoglobin 14.6 g/dL (13.0-16.5); Lymphocyte # 1.52 X10^3/ul (0.83-4.51); Mean Corp Hgb Conc 33.6 g/dL (32-36); Mean Corpuscular Hgb 30.2 pg (27.0-32.0); Mean Corpuscular Volume 89.9 fL (80-94); Mean Platelet Vol. 10.5 fl (6.2-12.0); Monocyte# 0.79 X10^3/uL; Monocyte% 12.5 % (0-10); NRBC Flagged by Analyzer 0 % (0-5); Neutrophil # 3.28 X10^3/uL (2.7-7.7); Neutrophil % 51.8 % (47-70); Platelet Count 209 K/mm3 (150-450); RBC Distribution Width CV 14.1 % (11.6-14.6); RBC Distribution Width SD 46.8 fl (35.1-43.9); Red Blood Count 4.84 M/mm3 (4.6-6.2); White Blood Count 6.3 K/mm3 (4.4-11.0)
--- NOTE | 2021-02-24 03:30 | RAD_ITS ---
STUDY: X-RAY CHEST REASON FOR EXAM: Male, 85 years old patient with chest pain. TECHNIQUE: Single AP portable view of the chest. COMPARISON: CT of the chest dated 02/24/2021. FINDINGS: Cardiac monitoring leads are present. The lungs are hyperexpanded. There are curvilinear opacities at left lung base that could represent Nicol B-lines versus subsegmental atelectasis. Bronchovascular markings are prominent in both lungs. There is no demonstrated pleural abnormality. There is borderline cardiomegaly. Normal mediastinum and martha. There is prominence of the pulmonary hilar arteries with peripheral pulmonary vascular congestion. Normal visualized aortic arch and descending thoracic aorta. Normal visualized thoracic spine. There is deformity of left clavicle probably secondary to old fracture. There is no demonstrated abnormality of the visualized soft tissue structures of the upper abdomen. RAD/Chest 1 View (Portable) IMPRESSION: No radiographic evidence of acute cardiopulmonary disease. Electronically Signed: Ivanna Huerta MD at 5:04 EDT , Service support ,
[2021-02-24 03:48] LABS: Anion Gap 6 (5-15); BUN 21 mg/dL (7-18); BUN/Creat Ratio 21.6 RATIO (10-20); Chloride 104 mmol/L (98-107); Creatinine, Serum 0.97 mg/dL (0.70-1.30); EST Glomerular Filtration Rate 78 mL/min (>60); Est Glom Filt Rate - Afr Amer 94 mL/min (>60); Estimated Creatinine Clearance 51.16 ml/min; Glucose 119 mg/dL (74-106); Potassium 3.8 mmol/L (3.5-5.1); Sodium Level 140 mmol/L (136-145); Troponin-I HS 206 pg/mL (3.0-78.0)
[2021-02-24] MEDS: Nitroglycerin SL (ED/IMG/CATH) 0.4 MG TABLET SL (03:57)
--- NOTE | 2021-02-24 04:07 | EKG12_ITS ---
Test Reason : CP Blood Pressure : / mmHG Vent. Rate : 055 BPM Atrial Rate : 055 BPM P-R Int : 148 ms QRS Dur : 098 ms QT Int : 474 ms P-R-T Axes : 054 036 125 degrees QTc Int : [address] & T wave abnormality, consider anterolateral ischemia Abnormal ECG Confirmed by HUE HICKEY, DANIELA ([id number]), editorial specialist ARGELIA QUISPE ([id number]) on 02/26/2021 9:40:40 AM Referred By: BB Confirmed By:DANIELA SWANN MD
[2021-02-24 04:50] LABS: Partial Thromboplast Time 28.9 Seconds (24.1-36.2)
--- NOTE | 2021-02-24 04:59 | PCM.HP.STD ---
HPI - General General Date of Admission: 02/24/21 Date of Service: 02/24/21 Chief Complaint: Chest Pain HPI Narrative TIEN FULLER, is a 85 M with a significant history of CAD status post 2 coronary stents in 2003 (about August 2003 & December 2003) who presents to the emergency department with dull aching left-sided chest pain that radiated to his left arm that started few hours before presentation. Although patient have had chest pain off and on and which improves with positioning this time around his chest pain was persistent without any ameliorating factors to the pain. Movement however made it worse. Patient denies any nausea, vomiting shortness of breath or diaphoresis. His gave him full dose aspirin before presentation. Also patient takes baby aspirin every day and Plavix every other day. Last time he took Plavix was on 02/22/2021. Emergency Department doctor reported that patient was given a sublingual nitroglycerin and then later on nitroglycerin paste was ordered. Even before patient received a sublingual nitroglycerin his pain had improved considerably. Patient was noted to have EKG changes and elevation in high-sensitivity troponin. Emergent department doctor discussed the case with cardiology on-call who recommended patient be started on heparin drip. At the time of hospitalist evaluation patient's pain had disappeared. [facility] Medical History Arteriosclerotic cardiovascular disease BPH (benign prostatic hyperplasia) Carotid artery disease Carotid stenosis, bilateral Dyspnea on exertion Edema History of cancer tonsil (1983) Hyperlipidemia Hypothyroidism Stricture of esophagus Home Medications clopidogrel 75 mg PO DAILY 07/31/16 [History Last Taken Unknown] vit C,K-Tw-gqaro-lutein-zeaxan 1 ea PO BID 07/31/16 [History Last Taken Unknown] ezetimibe 10 mg PO QHS 08/01/18 [History Last Taken Unknown] aspirin 81 mg tablet,delayed release 81 mg PO DAILY 05/30/19 [History Last Taken Unknown] cholecalciferol (vitamin D3) 125 mcg (5,000 unit) disintegrating tablet 2,000 unit PO DAILY 05/30/19 [History Last Taken Unknown] levothyroxine 50 mcg tablet 50 mcg PO DAILY 05/30/19 [History Last Taken Unknown] furosemide 40 mg tablet 40 mg PO DAILY #90 tab 05/31/19 [Rx Last Taken Unknown] lactobacillus combination no.9 4 billion cell capsule 4,000 mmu cells PO DAILY 05/31/19 [History Last Taken Unknown] multivitamin 1 tab PO DAILY 05/31/19 [History Last Taken Unknown] carvedilol 3.125 mg tablet 3.125 mg PO BID #60 tab 07/05/19 [Rx Last Taken Unknown] pravastatin 20 mg PO DAILY 02/24/21 [History Last Taken Unknown] Allergy/AdvReac Type Severity Reaction Status Date / Time iodine Allergy Severe swelling: Verified 02/24/21 03:05 clarify at appt re; iodine dye shellfish derived Allergy Anaphylaxis Verified 02/24/21 03:05 Heopkrp-Hej-Nhf Reductase AdvReac Intermediate intolerance; Verified 02/24/21 03:05 Inhibitor myalgias Family History Brother Brain aneurysm Other CAD (coronary artery disease) Surgical History History of cataract extraction History of colonoscopy history of left clavicle fracture History of left heart catheterization (02/03/04) History of tonsillectomy Stented coronary artery Social History Smoking Status: Never smoker ROS ROS Narrative Constitutional: Denies fever, chills, fatigue, anorexia and change in weight Eyes: Denies blurry vision, change in eye color, change in vision, discharge from eye(s), double vision, erythema, eye pain, loss of vision or other HEENT: Denies abnormal hearing, dysphagia, ear pain, epistaxis, headache(s), hearing loss, nasal congestion, nasal discharge, post nasal drip, sinus pressure, sore throat or other Cardiovascular: Reports chest pain. Denies palpitations. Respiratory/Chest: Denies cough, excessive phlegm production, shortness of breath with exertion and wheezing Gastrointestinal: Denies abdominal pain, coffee ground emesis, constipation, diarrhea, dyspepsia, hematemesis, hematochezia, loose stools, melena, nausea, vomiting or other Genitourinary: Denies burning urination, difficulty urinating, dysuria, hematuria, nocturia, urinary frequency, urinary hesitancy, urinary incontinence, urinary urgency or other Musculoskeletal: Reports left arm pain. Denies arthralgias, back pain, joint pain, joint stiffness, joint swelling, myalgias, neck pain or other Neurologic: Reports chronic numbness of fingers of left hand. Denies abnormal gait, abnormal speech, confusion, disequilibrium, dizziness, focal weakness, headache(s), seizure-like activity, seizures, syncope, tremor(s) or other Psychiatric: Denies anxiety, depression, homicidal ideation, suicidal ideation or other Endocrinology: Denies change in body appearance, cold intolerance, excessive sweating, heat intolerance, polydipsia, polyuria or other Hematologic/Lymphatic: Denies anemia, easy bleeding, easy bruising, lymphadenopathy or other Integumentary: Denies rashes Allergic/Immunologic: Denies rhinitis, hives, eczema, asthma or other Vital Signs Vital Signs Vital Signs: 02/24/21 02:59 02/24/21 03:05 02/24/21 03:54 Temperature 98 F Temperature Source Oral Pulse Rate 70 Respiratory Rate 18 Respiratory Effort Normal Respiratory Pattern Normal Blood Pressure 164/99 H Blood Pressure Mean 120 Pulse Ox 97 96 Oxygen Delivery Method Room Air Room Air 02/24/21 03:57 02/24/21 04:01 Temperature Temperature Source Pulse Rate 57 L 68 Respiratory Rate 16 Respiratory Effort Respiratory Pattern Blood Pressure 159/73 H 126/77 H Blood Pressure Mean 93 Pulse Ox 96 Oxygen Delivery Method Room Air Weight Weight: 83.9 kg Body Mass Index (BMI) 29.8 Physical Exam Narrative Physical exam: General: Well-nourished, well-developed. Head: Normocephalic, atraumatic, no tenderness Eyes: PERRLA, EOMI ENT, no trauma, moist mucous membranes, no rhinorrhea Neck: Nontender, full range of motion, no spinal tenderness, deformities, step-off CVS: Regular rate and rhythm. S1-S2 present. No murmur, gallop or rub. Respiratory : clear to auscultation bilaterally, chest wall nontender, no wheezing Abdomen: Soft, nontender, nondistended, normal bowel sounds, no masses : Deferred Back: Nontender, no CVA tenderness, no midline spinal tenderness, deformities, step-offs Extremities: Nontender full range of motion, no trauma Skin: Normal color, no trauma, abrasions Neuro: Alert, oriented, cranial nerves II through XII grossly intact. Psychiatry: Normal mood. Normal affect. Not depressed. Not anxious. Results Lab / Micro Data Result Diagrams: 02/24/21 03:06 02/24/21 03:06 Labs: Laboratory Results - last 24 hr 02/24/21 03:06: WBC 6.3, RBC 4.84, Hgb 14.6, Hct 43.5, MCV 89.9, MCH 30.2, MCHC 33.6, RDW Std Deviation 46.8 H, RDW Coeff of Ed 14.1, Plt Count 209, MPV 10.5, Immature Gran % (Auto) 0.300, Neut % (Auto) 51.8, Lymph % (Auto) 24.0, [place] % (Auto) 12.5 H, Eos % (Auto) 10.6 H, Baso % (Auto) 0.8, Absolute Neuts (auto) 3.3, Absolute Lymphs (auto) 1.52, Nucleated RBC % 0 02/24/21 03:06: Sodium 140, Potassium 3.8, Chloride 104, Carbon Dioxide 30.0, Anion Gap 6, BUN 21 H, Creatinine 0.97, Estim Creat Clear Calc 51.16, Est GFR (MDRD) Af Amer 94, Est GFR (MDRD) Non-Af 78, BUN/Creatinine Ratio 21.6 H, Glucose 119 H, Calcium 9.0, Troponin I High Sens 206 H* 02/24/21 03:06: APTT 28.9 Assessment & Plan Assessment/Plan (1) Unstable angina: PLAN: Unstable angina Place on a monitored bed at the progressive care unit Actual CXR image was independently visualized. No acute cardiopulmonary process was noted and I with agree radiologist interpretation Actual EKG tracing was independently visualized. EKG tracing showed T wave inversions in multiple leads and subtle elevation in J-point in V1 and V2. EKG on June 19, 2020 was reviewed. EKG did not show J-point elevation or T wave inversions. Echocardiogram on 06/21/2019 showed ejection fraction 55% with stage I diastolic dysfunction. Stress echocardiogram on 07/01/2019 was negative for ischemia. ASA 81 mg p.o. daily ordered Nitroglycerin paste hnqjoe-fak-[id number] ordered. Morphine as needed for pain ordered We will check lipid panel. Statin: Home statin continued. Anticoagulation: Heparin bolus and drip started emergency department and continued. Anti-P2Y12 Receptor antibody: Clopidogrel continued. Carvedilol continued Initial high sensitive troponin was 206. Trend troponin. Stat EKG as needed for chest pain Cardiology consult. Hypertension Blood pressure is not within goal Carvedilol and Lasix continued. Trend blood pressure and adjust blood pressure medications. Hypothyroidism Synthroid continued DVT prophylaxis Not indicated since patient is on heparin drip. Charges/Coding Visit Charges Inpatient E&M: 77557 Init Hosp L3
[2021-02-24] MEDS: Nitroglycerin Oint 1 INCH PACKET 0.5 INCH TD ×3 (05:07→18:17)
[2021-02-24] MEDS: Heparin Injection (Vial) 5,000 UNIT/ML VIAL 6000 UNIT IV (05:15)
[2021-02-24] MEDS: HEPARIN/D5w 25,000 UNITS 25,000 UNITS/250 ML IV.SOLN. 12 UNITS IV (05:16)
--- NOTE | 2021-02-24 05:52 | EKG12_ITS ---
Test Reason : AM EKG Blood Pressure : / mmHG Vent. Rate : 055 BPM Atrial Rate : 055 BPM P-R Int : 142 ms QRS Dur : 108 ms QT Int : 478 ms P-R-T Axes : 060 034 125 degrees QTc Int : 457 ms Sinus bradycardia T wave abnormality, consider anterolateral ischemia Abnormal ECG When compared with ECG of 24-FEB-2021 06:17, MANUAL COMPARISON REQUIRED, DATA IS UNCONFIRMED Confirmed by RAJANI HICKEY, KINGSTON ([id number]), video effects editor ARGELIA QUISPE ([id number]) on 02/26/2021 12:27:37 P M Referred By: DR JEFFRIES Confirmed By:EDWIN GERARD MD
--- NOTE | 2021-02-24 05:55 | PCS.PANDOC ---
PANDEMIC DOCUMENTATION INITIATED: Date: 02/24/2021 Time: 0565
[2021-02-24 06:32] LABS: Hematocrit 42.6 % (40-54); Hemoglobin 14.7 g/dL (13.0-16.5); Mean Corp Hgb Conc 34.5 g/dL (32-36); Mean Corpuscular Hgb 30.6 pg (27.0-32.0); Mean Corpuscular Volume 88.8 fL (80-94); Mean Platelet Vol. 10.6 fl (6.2-12.0); Platelet Count 190 K/mm3 (150-450); RBC Distribution Width CV 14.2 % (11.6-14.6); RBC Distribution Width SD 46.1 fl (35.1-43.9); White Blood Count 7.5 K/mm3 (4.4-11.0)
[2021-02-24 07:03] LABS: Partial Thromboplast Time 240.6 Seconds (24.1-36.2)
[2021-02-24 07:17] LABS: ALB/GLOB Ratio 0.9 RATIO (0.9-2.4); AST(SGOT) 27 U/L (15-37); Alanine Aminotransfer ALT/SGPT 25 U/L (16-61); Albumin, Serum 3.2 g/dL (3.2-5.0); Alkaline Phosphatase 87 U/L (45-117); Anion Gap 4 (5-15); BUN 19 mg/dL (7-18); BUN/Creat Ratio 20.9 RATIO (10-20); Calcium,Total 8.9 mg/dL (8.5-10.1); Chloride 106 mmol/L (98-107); Cholesterol 134 mg/dL (200); Creatinine, Serum 0.91 mg/dL (0.70-1.30); EST Glomerular Filtration Rate 85 mL/min (>60); Est Glom Filt Rate - Afr Amer 102 mL/min (>60); Estimated Creatinine Clearance 54.53 ml/min; Globulin 3.4 g/dL (2.2-4.2); Glucose 116 mg/dL (74-106); High Density Lipoprotein 46 mg/dL; Potassium 4.5 mmol/L (3.5-5.1); Protein, Total 6.6 g/dL (6.4-8.2); Sodium Level 140 mmol/L (136-145); Triglycerides 39 mg/dL; Troponin-I HS 860 pg/mL (3.0-78.0); Very Low Density Lipoprotein 8 mg/dL (5-40)
[2021-02-24 09:19] LABS: Troponin-I HS 1569 pg/mL (3.0-78.0)
[2021-02-24] MEDS: Clopidogrel Bisulfate 75 MG Tablet PO (09:41)
[2021-02-24] MEDS: Carvedilol 3.125 MG TABLET PO (09:42)
[2021-02-24] MEDS: Aspirin E.C. 81 MG Tablet PO (09:42)
[2021-02-24] MEDS: Cholecalciferol (VIT D3) 25 MCG TABLET (1,000 UNITS) 50 MCG PO (09:42)
[2021-02-24] MEDS: Furosemide 40 MG Tablet PO (09:42)
[2021-02-24] MEDS: Multivitamin (Healthy Eyes) Capsule 1 CAP PO ×2 (09:43→22:31)
[2021-02-24] MEDS: Multivitamins,Therapeutic Tablet 1 TABLET PO (09:43)
--- NOTE | 2021-02-24 10:19 | PCM.PN.HOSP ---
Objective Data Objective Data Vital Signs: Vital Signs Temp Pulse Resp BP Pulse Ox 97 F L 63 16 163/74 H 94 02/24/21 09:34 02/24/21 09:34 02/24/21 09:34 02/24/21 09:34 02/24/21 09:34 Oxygen Delivery Method Room Air Weight: 81.5 kg Body Mass Index (BMI) 29.0 Intake & Output: Intake and Output for Last 24 Hours 02/22/21 02/23/21 02/24/21 23:59 23:59 23:59 Intake Total 23.8 / 23.8 Balance 23.8 / 23.8 Lab / Micro Data Result Diagrams: 02/24/21 06:12 02/24/21 06:12 Labs: Laboratory Results - last 24 hr 02/24/21 03:06: WBC 6.3, RBC 4.84, Hgb 14.6, Hct 43.5, MCV 89.9, MCH 30.2, MCHC 33.6, RDW Std Deviation 46.8 H, RDW Coeff of Ed 14.1, Plt Count 209, MPV 10.5, Immature Gran % (Auto) 0.300, Neut % (Auto) 51.8, Lymph % (Auto) 24.0, [place] % (Auto) 12.5 H, Eos % (Auto) 10.6 H, Baso % (Auto) 0.8, Absolute Neuts (auto) 3.3, Absolute Lymphs (auto) 1.52, Nucleated RBC % 0 02/24/21 03:06: Sodium 140, Potassium 3.8, Chloride 104, Carbon Dioxide 30.0, Anion Gap 6, BUN 21 H, Creatinine 0.97, Estim Creat Clear Calc 51.16, Est GFR (MDRD) Af Amer 94, Est GFR (MDRD) Non-Af 78, BUN/Creatinine Ratio 21.6 H, Glucose 119 H, Calcium 9.0, Troponin I High Sens 206 H* 02/24/21 03:06: APTT 28.9 02/24/21 06:12: WBC 7.5, RBC 4.80, Hgb 14.7, Hct 42.6, MCV 88.8, MCH 30.6, MCHC 34.5, RDW Std Deviation 46.1 H, RDW Coeff of Ed 14.2, Plt Count 190, MPV 10.6 10/31/21 06:12: Sodium 140, Potassium 4.5, Chloride 106, Carbon Dioxide 30.0, Anion Gap 4 L, BUN 19 H, Creatinine 0.91, Estim Creat Clear Calc 54.53, Est GFR (MDRD) Af Amer 102, Est GFR (MDRD) Non-Af 85, BUN/Creatinine Ratio 20.9 H, Glucose 116 H, Calcium 8.9, Total Bilirubin 0.50, AST 27, ALT 25, Alkaline Phosphatase 87, Troponin I High Sens 860 H*, Total Protein 6.6, Albumin 3.2, Globulin 3.4, Albumin/Globulin Ratio 0.9, Triglycerides 39, Cholesterol 134, LDL Cholesterol 80, VLDL Cholesterol 8, HDL Cholesterol 46 02/24/21 06:12: APTT 240.6 H* 02/24/21 08:47: Troponin I High Sens 1569 H* Radiography Diagnostic Testing: Radiology Impression Chest X-Ray 02/24/21 03:30 IMPRESSION: No radiographic evidence of acute cardiopulmonary disease. Electronically Signed: Ivanna Huerta MD at 5:04 EDT , Service support ,
[2021-02-24] MEDS: Levothyroxine 50 MCG Tablet PO (11:15)
--- NOTE | 2021-02-24 12:02 | PCM.CONS.C ---
Assessment & Plan Assessment/Plan (1) Stented coronary artery: (2) Arteriosclerotic cardiovascular disease: (3) History of left heart catheterization: (4) Carotid artery disease: (5) Hyperlipidemia: (6) Hypothyroidism: (7) BPH (benign prostatic hyperplasia): (8) History of cancer tonsil: (9) Acute non-ST elevation myocardial infarction (NSTEMI): PLAN: 85-year-old patient with history of CAD prior myocardial infarction with PCI and stent to the proximal - mid LAD using bare-metal stent and drug-eluting stent Taxus in 2003, 3 x 18 mm [employer] Mechanic stent/BMS and drug-eluting stent Taxus. Presented with ongoing symptoms of chest pain typical of angina described as retrosternal with radiation to the left arm Patient was on aspirin daily and he take Plavix every other day. On this presentation he was given nitroglycerin in the ER which relieved his symptoms and started on medical therapy with heparin Today at bedside no further up episode of chest pain reported is comfortable alert and orientated on cardiac exam essentially normal. Cardiac recommendation and plan; #1. We will continue current medical treatment with aspirin Plavix beta-fito and heparin IV noted patient had allergy to statin and iodine and will start treatment for iodine allergy. #2. Echocardiogram. #3. Cardiac catheterization on Thursday HPI Consult Data Date of Consult: 02/24/21 HPI Narrative Reason for Consultation: CAD with non-ST elevation DE HPI Narrative: TIEN FULLER, is a 85 M who [facility] Medical History (Updated 02/24/21 @ 12:[address] Bob Clinton MD) Arteriosclerotic cardiovascular disease BPH (benign prostatic hyperplasia) Carotid artery disease Carotid stenosis, bilateral Chest pain Dyspnea on exertion Edema GERD (gastroesophageal reflux disease) History of cancer tonsil (1983) Hyperlipidemia Hypertension Hypothyroidism Non-smoker Stricture of esophagus Home Medications clopidogrel 75 mg PO DAILY 07/31/16 [History Last Taken Unknown] vit C,Q-Sf-ttajn-lutein-zeaxan 1 ea PO BID 07/31/16 [History Last Taken Unknown] ezetimibe 10 mg PO QHS 08/01/18 [History Last Taken Unknown] aspirin 81 mg tablet,delayed release 81 mg PO DAILY 05/30/19 [History Last Taken Unknown] cholecalciferol (vitamin D3) 125 mcg (5,000 unit) disintegrating tablet 2,000 unit PO DAILY 05/30/19 [History Last Taken Unknown] levothyroxine 50 mcg tablet 50 mcg PO DAILY 05/30/19 [History Last Taken Unknown] furosemide 40 mg tablet 40 mg PO DAILY #90 tab 05/31/19 [Rx Last Taken Unknown] lactobacillus combination no.9 4 billion cell capsule 4,000 mmu cells PO DAILY 05/31/19 [History Last Taken Unknown] multivitamin 1 tab PO DAILY 05/31/19 [History Last Taken Unknown] carvedilol 3.125 mg tablet 3.125 mg PO BID #60 tab 07/05/19 [Rx Last Taken Unknown] pravastatin 20 mg PO DAILY 02/24/21 [History Last Taken Unknown] Allergy/AdvReac Type Severity Reaction Status Date / Time iodine Allergy Severe swelling: Verified 02/24/21 03:05 clarify at appt re; iodine dye shellfish derived Allergy Anaphylaxis Verified 02/24/21 03:05 Vyldyqt-Bwz-Ekd Reductase AdvReac Intermediate intolerance; Verified 02/24/21 03:05 Inhibitor myalgias Family History Brother Brain aneurysm Other CAD (coronary artery disease) Surgical History History of cataract extraction History of colonoscopy history of left clavicle fracture History of left heart catheterization (02/03/04) History of tonsillectomy Stented coronary artery Social History Smoking Status: Never smoker Physical Exam Narrative Patient seen and evaluated at bedside along with the nursing staff, at bedside and was able to give detailed history security monitor showed underlying normal sinus Cardiovascular exam S1-S2 regular, no murmur no systolic or diastolic murmur, no pericardial rub or gallop rhythm Chest examination clear to auscultation bilateral Examination abdomen soft Examination lower extremity no clubbing no cyanosis no lower extremity edema. Examination of central nervous system no focal neurological deficit. Risk Stratification Risk Stratification Applicable: Yes Age >/= 65: Yes >/= 3 CAD Risk Factors (HTN, HLD, DM, family hx of CAD, or current smoker): Yes Aspirin Use in the Past 7 Days: Yes Severe Angina (>/= episodes in 24 hours): Yes EKG ST Changes >/= 0.5mm: Yes Positive Cardiac Marker: Yes GOPI Risk Stratification Score: 6 GOPI % Risk: 41% Risk Objective Data Vital Signs: Vital Signs Temp Pulse Resp BP Pulse Ox 97 F L 63 16 163/74 H 94 02/24/21 09:34 02/24/21 09:34 02/24/21 09:34 02/24/21 09:34 02/24/21 09:34 Oxygen Delivery Method Room Air Weight: 179 lb 10.828 oz Body Mass Index (BMI) 29.0 Intake & Output: Intake and Output for Last 24 Hours 02/22/21 02/23/21 02/24/21 23:59 23:59 23:59 Intake Total 23.8 / 23.8 Balance 23.8 / 23.8 Lab / Micro Data Result Diagrams: 02/24/21 06:12 02/24/21 06:12 Labs: Laboratory Results - last 24 hr 02/24/21 03:06: WBC 6.3, RBC 4.84, Hgb 14.6, Hct 43.5, MCV 89.9, MCH 30.2, MCHC 33.6, RDW Std Deviation 46.8 H, RDW Coeff of Ed 14.1, Plt Count 209, MPV 10.5, Immature Gran % (Auto) 0.300, Neut % (Auto) 51.8, Lymph % (Auto) 24.0, [place] % (Auto) 12.5 H, Eos % (Auto) 10.6 H, Baso % (Auto) 0.8, Absolute Neuts (auto) 3.3, Absolute Lymphs (auto) 1.52, Nucleated RBC % 0 02/24/21 03:06: Sodium 140, Potassium 3.8, Chloride 104, Carbon Dioxide 30.0, Anion Gap 6, BUN 21 H, Creatinine 0.97, Estim Creat Clear Calc 51.16, Est GFR (MDRD) Af Amer 94, Est GFR (MDRD) Non-Af 78, BUN/Creatinine Ratio 21.6 H, Glucose 119 H, Calcium 9.0, Troponin I High Sens 206 H* 02/24/21 03:06: APTT 28.9 02/24/21 06:12: WBC 7.5, RBC 4.80, Hgb 14.7, Hct 42.6, MCV 88.8, MCH 30.6, MCHC 34.5, RDW Std Deviation 46.1 H, RDW Coeff of Ed 14.2, Plt Count 190, MPV 10.6 02/24/21 06:12: Sodium 140, Potassium 4.5, Chloride 106, Carbon Dioxide 30.0, Anion Gap 4 L, BUN 19 H, Creatinine 0.91, Estim Creat Clear Calc 54.53, Est GFR (MDRD) Af Amer 102, Est GFR (MDRD) Non-Af 85, BUN/Creatinine Ratio 20.9 H, Glucose 116 H, Calcium 8.9, Total Bilirubin 0.50, AST 27, ALT 25, Alkaline Phosphatase 87, Troponin I High Sens 860 H*, Total Protein 6.6, Albumin 3.2, Globulin 3.4, Albumin/Globulin Ratio 0.9, Triglycerides 39, Cholesterol 134, LDL Cholesterol 80, VLDL Cholesterol 8, HDL Cholesterol 46 02/24/21 06:12: APTT 240.6 H* 02/24/21 08:47: Troponin I High Sens 1569 H* Cardiology Labs/Tests 02/24/21 03:06: WBC 6.3, RBC 4.84, Hgb 14.6, Hct 43.5, MCV 89.9, MCH 30.2, MCHC 33.6, Plt Count 209, MPV 10.5, Immature Gran % (Auto) 0.300, Neut % (Auto) 51.8, Lymph % (Auto) 24.0, [place] % (Auto) 12.5 H, Eos % (Auto) 10.6 H, Baso % (Auto) 0.8, Absolute Neuts (auto) 3.3, Nucleated RBC % 0 02/24/21 03:06: Sodium 140, Potassium 3.8, Chloride 104, Carbon Dioxide 30.0, Anion Gap 6, BUN 21 H, Creatinine 0.97, Est GFR (MDRD) Af Amer 94, Est GFR (MDRD) Non-Af 78, BUN/Creatinine Ratio 21.6 H, Glucose 119 H, Calcium 9.0 02/24/21 03:06: APTT 28.9 02/24/21 06:12: WBC 7.5, RBC 4.80, Hgb 14.7, Hct 42.6, MCV 88.8, MCH 30.6, MCHC 34.5, Plt Count 190, MPV 10.6 02/24/21 06:12: Sodium 140, Potassium 4.5, Chloride 106, Carbon Dioxide 30.0, Anion Gap 4 L, BUN 19 H, Creatinine 0.91, Est GFR (MDRD) Af Amer 102, Est GFR (MDRD) Non-Af 85, BUN/Creatinine Ratio 20.9 H, Glucose 116 H, Calcium 8.9, Total Bilirubin 0.50, Triglycerides 39, Cholesterol 134, LDL Cholesterol 80, VLDL Cholesterol 8, HDL Cholesterol 46 02/24/21 06:12: APTT 240.6 H* Rhythm: Normal sinus rhythm EKG: Age indeterminate anterior DE with, T wave inversion and Q wave in anterior lead Radiography Diagnostic Testing: Radiology Impression Chest X-Ray 02/24/21 03:30 IMPRESSION: No radiographic evidence of acute cardiopulmonary disease. Electronically Signed: Ivanna Huerta MD at 5:04 EDT , Service support ,
--- NOTE | 2021-02-24 13:48 | PCM.PN.BLA ---
Progress Note Patient was seen and examined. He was seen sitting up having his breakfast. He denied any chest pain He is on heparin drip, on aspirin, Plavix, beta-blockers, Nitropaste His troponins are trending up. Rest of blood work is unremarkable Vitals have been stable Appreciate cardiology consult Will follow-up with 2d-ECHO and cardiac cath
[2021-02-24 15:36] LABS: Partial Thromboplast Time 61.6 Seconds (24.1-36.2)
[2021-02-24 22:18] LABS: Partial Thromboplast Time 57.6 Seconds (24.1-36.2)
[2021-02-24] MEDS: Pravastatin 20 MG Tablet PO (22:31)
[2021-02-24] MEDS: Ezetimibe 10 MG Tablet PO (22:31)
[2021-02-25] VITALS (29 sets, daily range): BP systolic 94–157; BP diastolic 62–104; PULSE 52–86; RESP 16–18; TEMP 36.2–37.1; O2SAT 93–96
[2021-02-25] MEDS: Nitroglycerin Oint 1 INCH PACKET 0.5 INCH TD ×3 (00:02→11:49)
[2021-02-25 03:57] LABS: Partial Thromboplast Time 61.5 Seconds (24.1-36.2)
[2021-02-25] MEDS: Aspirin E.C. 81 MG Tablet PO (05:48)
[2021-02-25] MEDS: Clopidogrel Bisulfate 75 MG Tablet PO (05:48)
[2021-02-25] MEDS: Carvedilol 3.125 MG TABLET PO ×2 (05:48→16:14)
[2021-02-25] MEDS: Levothyroxine 50 MCG Tablet PO (05:48)
--- NOTE | 2021-02-25 05:55 | EKG12_ITS ---
Test Reason : AM EKG Blood Pressure : / mmHG Vent. Rate : 065 BPM Atrial Rate : 065 BPM P-R Int : 140 ms QRS Dur : 104 ms QT Int : 418 ms P-R-T Axes : 060 020 125 degrees QTc Int : 434 ms Normal sinus rhythm Septal infarct , age undetermined ST & T wave abnormality, consider anterior ischemia Abnormal ECG Confirmed by HUE HICKEY, DANIELA ([id number]), editor greeting card ARGELIA QUISPE ([id number]) on 02/27/2021 8:53:45 AM Referred By: ITA Confirmed By:DANIELA SWANN MD
--- NOTE | 2021-02-25 08:32 | NURSING ---
This RN called and gave report to OLIVIA Rodgers at [employer].
[2021-02-25] MEDS: DiphenhydrAMINE 25 MG Capsule 50 MG PO (08:42)
[2021-02-25] MEDS: Famotidine 20 MG Tablet PO (08:42)
[2021-02-25] MEDS: predniSONE 20 MG Tablet 60 MG PO (08:42)
--- NOTE | 2021-02-25 08:55 | PN.CARD_ITS ---
Subjective Subjective The patient is awake and alert. He denies any ongoing chest discomfort at this time. He states his discomfort at home began with what he believes to be moderate exertional activity and then progressed to minimal exertional activity and then progressed to occurring at rest. Objective Data Vital Signs: Vital Signs Temp Pulse Resp BP Pulse Ox 97.6 F L 52 L 16 105/64 94 02/25/21 07:46 02/25/21 07:46 02/25/21 07:46 02/25/21 07:46 02/25/21 07:46 Oxygen Delivery Method Room Air Weight: 179 lb 10.828 oz Body Mass Index (BMI) 29.0 Intake & Output: Intake and Output for Last 24 Hours 02/23/21 02/24/21 02/25/21 23:59 23:59 23:59 Intake Total 622.30 / 1022.30 491.5 / 491.5 Balance 622.30 / 1022.30 491.5 / 491.5 Lab / Micro Data Result Diagrams: 02/24/21 06:12 02/24/21 06:12 Labs: Laboratory Results - last 24 hr 02/24/21 08:47: Troponin I High Sens 1569 H* 02/24/21 15:19: APTT 61.6 H 02/24/21 21:35: APTT 57.6 H 02/25/21 03:30: APTT 61.5 H Cardiology Labs/Tests 02/24/21 15:19: APTT 61.6 H 02/24/21 21:35: APTT 57.6 H 02/25/21 03:30: APTT 61.5 H Rhythm: Sinus rhythm EKG: Sinus rhythm; T wave abnormality compatible with anterolateral myocardial ischemia Physical Exam Const alert, oriented x3 and healthy appearing Orientation / Consciousness: awake HEENT normocephalic, head/scalp atraumatic and hearing grossly normal bilaterally Eyes PERRL and EOMs intact bilaterally Neck full ROM, supple and no JVD Chest inspection of chest normal Resp normal respiratory effort and clear to auscultation bilaterally Cardio regular rate, regular rhythm, S1 normal heart sound and S2 normal heart sound GI normal to inspection, nondistended, normoactive bowel sounds Extremity no pedal edema Skin no rashes or lesions noted Psych mental status grossly normal Assessment & Plan Assessment/Plan (1) Acute non-ST elevation myocardial infarction (NSTEMI): PLAN: The patient appears to have findings compatible with an acute non-ST segment elevation VT. At the present time he does have abnormal cardiac enzymes and an abnormal ECG. He has been on medical management. He has been recommended for further evaluation with diagnostic cardiac catheterization. The procedure and risk were discussed with him. He was agreeable to this approach. (2) Arteriosclerotic cardiovascular disease: PLAN: The patient has a history of LAD PCI with both a bare-metal stent an d a Taxus drug-eluting stent placed in 2003. At the present time based upon his electrocardiographic findings there are concerns of myocardial ischemia in the anterolateral distribution. He will continue medical therapy and further evaluation with diagnostic cardiac catheterization as noted. (3) Stented coronary artery: PLAN: The patient's previous PCI was performed at [facility]. At that time it appears he received an LAD BMS and then subsequently an LAD HOLLY with a Taxus drug-eluting stent. He does not recall undergoing repeat diagnostic cardiac catheterization since those studies performed/procedures performed in 2003. At the moment based upon his electrocardiographic changes there are concerns of myocardial ischemia in the LAD distribution. Thus he will undergo further evaluation care as noted. (4) Hyperlipidemia: PLAN: He should continue risk factor evaluation care as deemed appropriate. Addt'l Comments The above was discussed and reviewed with the patient. He was agreeable to this approach. The patient's case was previously discussed with Dr. Clinton. This note was generated using a voice recognition system and there may be incorrect words, spelling or punctuation that were not noted when reviewing the office note prior to saving. Procedure Criteria Type of Procedure Procedure Type: Elective Elective Risks - COVID COVID Risk Discussion: The surgeon/proceduralist and patient have discussed in detail the risk of exposure to and/or potential harm posed by the COVID-19 virus with having a surgery/procedure at this time versus the risk of delaying the surgery/procedure. It is not possible to know either the risk of delaying the surgery or procedure or chance of getting an infection with perfect accuracy, but a joint decision was made between the patient and the surgeon/proceduralist to proceed at this time with the scheduled surgery/procedure as indicated on the consent form.
--- NOTE | 2021-02-25 10:28 | CL.D_ITS ---
Patient Name: TIEN FULLER Study Date: 02/25/2021 Performing: Roddy Leiva MD Ht: 66.14 inches 168 cm : 1935 Wt: 180.78 lbs 82 kg Age: 85 Gender: male BSA: 1.92 PROCEDURE(S) PERFORMED FT81-VUS/COR/LV CLINICAL PROFILE AND INDICATIONS Indications: ACS <= 24 hrs, Worsening Angina, Suspected CAD Heart Failure: None Stress/Imaging Stress/Image Study Performed: No Angina Classification Anginal Classification w/in 2 Weeks: CCS IV CAD Presentations: Non-STEMI. CONCLUSIONS Elevated Left Ventricular End Diastolic Pressure Segmented LV wall motion abnormalities with overall preserved LV systolic function LVEF: by LV gram 55 % [place] Multivessel CAD Left to left and right to left collateral flow RECOMMENDATIONS Medical therapy Surgery consult for coronary revascularization DESCRIPTION OF PROCEDURE The patient arrived to the procedure lab. The risks and benefits of the procedure as well as a full d escription of our services here and current unavailability of surgical backup were fully explained to the patient and/or their significant other prior to the catheterization. The Timeout was completed, verifying the correct patient and procedure. The patient's procedural site was prepped and draped in the usual fashion. Local anesthetic was given subcutaneously to right groin region with Lidocaine 2%. Using a modified Seldinger technique, arterial access was obtained via the right femoral artery, a 4 Fr sheath was inserted Left Coronary Artery selective angiography was performed in multiple views us ing a 4 Fr. JL5 catheter. Right Coronary Artery selective angiography was then performed in multiple views using a 4 Fr. JR4 catheter. Left Ventriculography was performed in LEAHY projection using a 4 Fr. Pigtail catheter. LV to AO pullback pressures were then recorded.Contrast was injected through the sheath and the Right Iliac and Femoral artery were assessed for possible closure device.T he arterial sheath was pulled and a Perclose closure device was deployed for hemostasis CORONARY ANGIOGRAPHY DOMINANCE: Right Dominant LEFT HEART ASSESSMENT Left Ventricular Ejection Fraction: by LV Gram 55 % Anterior Hypokinesis. Apical Akinesis Elevated Left Ventricular End Diastolic Pressure LVEDP: 20 mmHg LEFT MAIN: Angiographically normal LEFT ANTERIOR DESCENDING ARTERY: PROX LAD: Previously placed stent is occluded MID LAD: mid to distal: fills from left to left and right to left collaterals CIRCUMFLEX ARTERY: PROX CIRC: 25 % Stenosis OM 1: Distal - bifurcating branch: ostial: 75 % Stenosis RAMUS: proximal: 90 % Stenosis RIGHT CORONARY ARTERY: Mild luminal irregularities DISTAL RCA: 75 % Stenosis RT PDA: Mid - 85 % Stenosis COLLATERAL FLOW: Collateral flow from Left to Left Collateral flow from Right to Left AORTIC ROOT: Angiographically normal COMPLICATIONS PROCEDURE MEDICATIONS Versed 1 mg IV Oxygen: 2 L/min via nasal cannula Solu-medrol 125 mg IV 02/25/2021 09:18:32 SUMMARY OF HEMODYNAMIC DATA Time AIR REST ECG 09:04:39 Art 154/65 (94) 09:35:26 AO 135/61 (91) SA 09:37:48 LV 146/0, 24 09:47:42 LV 145/-2, 20 09:47:48 LV 150/-1, 26 09:49:20 LV 149/-2, 21 09:49:27 LVp 152/0, 25 09:49:35 AOp 154/64 (95) 09:49:40 RM AIR REST 10:08:43 Signed By Roddy Leiva MD On 02/25/2021 10:26:51 Roddy Leiva MD
[2021-02-25] MEDS: 0.9% Normal Saline 1,000 ML 75 ML IV (10:55)
[2021-02-25] MEDS: Multivitamins,Therapeutic Tablet 1 TABLET PO (11:49)
[2021-02-25] MEDS: Multivitamin (Healthy Eyes) Capsule 1 CAP PO ×2 (11:49→21:16)
[2021-02-25] MEDS: Cholecalciferol (VIT D3) 25 MCG TABLET (1,000 UNITS) 50 MCG PO (11:49)
[2021-02-25] MEDS: Furosemide 40 MG Tablet PO (11:49)
--- NOTE | 2021-02-25 14:56 | NURSING ---
This RN reviewed SN charting
--- NOTE | 2021-02-25 15:45 | NURSING ---
This RN ambulated with pt in room for first time post heart cath. No signs of complications, bleeding, hematoma, or bruising.
--- NOTE | 2021-02-25 16:10 | PN.HOSP_ITS ---
Subjective Subjective Patient seen and examined. He had no complaints this morning. He had cardiac cath today which showed severe multivessel coronary artery disease with segmental left ventricular wall motion abnormalities and overall preserved left ventricular systolic function. Review systems otherwise negative. Objective Data Objective Data Vital Signs: Vital Signs Temp Pulse Resp BP Pulse Ox 97.5 F L 58 L 18 94/80 94 02/25/21 15:59 02/25/21 15:59 02/25/21 15:59 02/25/21 15:59 02/25/21 15:59 Oxygen Delivery Method Room Air Weight: 179 lb 10.828 oz Body Mass Index (BMI) 29.0 Intake & Output: Intake and Output for Last 24 Hours 02/23/21 02/24/21 02/25/21 23:59 23:59 23:59 Intake Total 622.30 / 1022.30 891.5 / 891.5 Output Total 550 / 550 Balance 622.30 / 1022.30 341.5 / 341.5 Lab / Micro Data Result Diagrams: 02/24/21 06:12 02/24/21 06:12 Labs: Laboratory Results - last 24 hr 02/24/21 21:35: APTT 57.6 H 02/25/21 03:30: APTT 61.5 H Physical Exam Const alert, oriented x3 and no apparent distress Exam Limitations: no limitations HEENT head/scalp atraumatic and moist oral mucous membranes Head and Scalp: normocephalic Eyes PERRL, EOMs intact bilaterally and conjunctivae normal Neck no lymphadenopathy Resp normal respiratory effort, no retractions, no use of accessory muscles and clear to auscultation bilaterally Cardio regular rate, regular rhythm, S1 normal heart sound, S2 normal heart sound and no murmurs GI normal to inspection, nondistended, normoactive bowel sounds, soft to palpation, non-tender and non-distended Extremity normal to inspection, full ROM and no clubbing, cyanosis or edema Peripheral Pulses: Yes pulses 2+ throughout Skin no rashes or lesions noted Neuro oriented x3, CN's II-XII intact bilaterally and moves all extremities Sensorium / Orientation: awake Psych affect normal Assessment & Plan Assessment/Plan (1) Acute non-ST elevation myocardial infarction (NSTEMI): (2) Unstable angina: PLAN: #nonstemi * S/p cardiac cath today which showed severe multivessel coronary artery disease with segmental left ventricular wall abnormalities * On aspirin and Plavix. Cardiology on board. * Patient will need CABG. Patient counseled about need for CABG. * On high intensity statin and carvedilol * #Hypertension: On carvedilol and Lasix. #Hyperlipidemia: On ezetimibe and statin #Hypothyroidism: On Synthroid #BPH: stable DVT prophylaxis; SCDs. Charges/Coding Visit Charges Inpatient E&M: 25926 Subs Hosp L2
--- NOTE | 2021-02-25 17:49 | ECHOCS_ITS ---
Reason For Study: S/P [place] Procedure This was a 2D Doppler, Color Flow transthoracic echocardiogram. The study was technically difficult. Due to body habitus. Contrast injection was performed. Exam performed portable in patient room. Left Ventricle Normal LV size. Segmental dysfunction with preserved ejection fraction (see wall motion). The estimated ejection fraction is 60 %. No evidence for diastolic dysfunction. Seaview : Akinetic. Right Ventricle Normal RV size. Normal systolic function. Atria The left atrium is mildly enlarged. Normal right atrium. No doppler evidence for ASD. Mitral Valve There is mild mitral annular calcification. Extension of the mitral annular calcification on the base of the posterior mitral valve leaflet. Trivial mitral valve insufficiency. Tricuspid Valve Normal tricuspid valve. Trivial tricuspid valve insufficiency. Unable to estimate RV systolic pressure/pulmonary artery pressure due to technically difficult study. Aortic Valve The aortic valve is not well visualized. Pulmonic Valve The pulmonic valve is not well visualized. Great Vessels Normal sized aortic root. Pericardium/Pleural No pericardial effusion. Medication Diluted definity 3.0ml given slow IV push to enhance endocardial definition. MMode/2D Measurements & Calculations LVIDd: 4.8 cm IVSd: 1.1 cm Ao root diam: 3.2 cm LVIDs: 3.2 cm LVPWd: 1.1 cm RVDd: 3.6 cm FS: 33.7 % LAV(MOD-bp): 60.6 ml LA A4 area: 20.1 cm2 LA dimension(2D): 4.0 cm LAV(MOD-bp) Indexed: 31.8 ml/m2 LAV(MOD-sp2): 58.9 ml LAV(MOD-sp4): 59.1 ml RA A4 area: 19.2 cm2 Time Measurements MV dec time: 0.26 sec Doppler Measurements & Calculations MV E max devendra: 52.8 cm/sec Lat Peak E' Devendra: 9.6 cm/sec Med Peak E' Devendra: 5.2 cm/sec MV A max devendra: 80.9 cm/sec E/E' lat: 5.5 E/E' med: 10.1 MV E/A: 0.65 Ao V2 max: 160.0 cm/sec LV V1 max: 88.7 cm/sec Ao max P.2 mmHg LV V1 max P.2 mmHg ECHO/Echo Complete W/ Contrast Interpretation Summary The study was technically difficult. Contrast injection was performed. Segmental dysfunction with preserved ejection fraction (see wall motion). The estimated ejection fraction is 60 %. The left atrium is mildly enlarged. There is mild mitral annular calcification. Extension of the mitral annular calcification on the base of the posterior mitr al valve leaflet. Trivial mitral valve insufficiency. Trivial tricuspid valve insufficiency. Unable to estimate RV systolic pressure/pulmonary artery pressure due to techni jose enrique difficult study. No evidence for diastolic dysfunction. Ordering Physician: Roddy Leiva Referring Physician: Levon Mejia Performed By: Toya Hernandez, FRANCESCA, RVT
--- NOTE | 2021-02-25 19:13 | EKG12_ITS ---
Test Reason : CP Blood Pressure : / mmHG Vent. Rate : 080 BPM Atrial Rate : 080 BPM P-R Int : 146 ms QRS Dur : 102 ms QT Int : 348 ms P-R-T Axes : 054 025 067 degrees QTc Int : 401 ms Sinus rhythm with occasional Premature ventricular complexes Nonspecific T wave abnormality Abnormal ECG Confirmed by HUE HICKEY, DANIELA ([id number]), book or script editor ARGELIA QUISPE ([id number]) on 02/27/2021 8:54:18 AM Referred By: MAGUE Confirmed By:DANIELA SWANN MD
[2021-02-25] MEDS: Morphine 2 MG/ML Syringe 1 MG IV ×2 (19:17→19:47)
[2021-02-25 20:36] LABS: Partial Thromboplast Time 29.8 Seconds (24.1-36.2)
[2021-02-25] MEDS: Nitroglycerin Infusion 250 ML 3 MG CONT INF (20:41)
[2021-02-25 20:59] LABS: Troponin-I HS 1038 pg/mL (3.0-78.0)
[2021-02-25] MEDS: Ezetimibe 10 MG Tablet PO (21:16)
[2021-02-25] MEDS: Pravastatin 20 MG Tablet PO (21:16)
[2021-02-25] MEDS: HEPARIN/D5w 25,000 UNITS 25,000 UNITS/250 ML IV.SOLN. 9 UNITS IV (22:30)
[2021-02-25 23:11] LABS: Troponin-I HS 889 pg/mL (3.0-78.0)
[2021-02-26] VITALS (22 sets, daily range): BP systolic 93–128; BP diastolic 59–90; PULSE 58–74; RESP 12–20; TEMP 36.6–37.1; O2SAT 93–99
[2021-02-26 05:10] LABS: Hematocrit 43.6 % (40-54); Hemoglobin 15.1 g/dL (13.0-16.5); Mean Corp Hgb Conc 34.6 g/dL (32-36); Mean Corpuscular Hgb 30.6 pg (27.0-32.0); Mean Corpuscular Volume 88.3 fL (80-94); Mean Platelet Vol. 10.5 fl (6.2-12.0); Platelet Count 210 K/mm3 (150-450); RBC Distribution Width CV 14.3 % (11.6-14.6); Red Blood Count 4.94 M/mm3 (4.6-6.2)
[2021-02-26 05:31] LABS: International Normalized Ratio 1.2; Prothrombin Time (Protime)PT. 14.1 SECONDS (11.7-14.9)
[2021-02-26 05:33] LABS: Partial Thromboplast Time 44.9 Seconds (24.1-36.2)
--- NOTE | 2021-02-26 05:55 | EKG12_ITS ---
Test Reason : CP Blood Pressure : / mmHG Vent. Rate : 064 BPM Atrial Rate : 064 BPM P-R Int : 134 ms QRS Dur : 108 ms QT Int : 426 ms P-R-T Axes : 042 024 111 degrees QTc Int : 439 ms Normal sinus rhythm Septal infarct , age undetermined Abnormal ECG Confirmed by HUE HICKEY, DANIELA ([id number]), shear assembler ARGELIA QUISPE ([id number]) on 02/28/2021 9:10:56 AM Referred By: Confirmed By:DANIELA SWANN MD
[2021-02-26 06:00] LABS: Anion Gap 8 (5-15); BUN 26 mg/dL (7-18); BUN/Creat Ratio 19.4 RATIO (10-20); Calcium,Total 8.4 mg/dL (8.5-10.1); Chloride 108 mmol/L (98-107); Creatinine, Serum 1.34 mg/dL (0.70-1.30); EST Glomerular Filtration Rate 54 mL/min (>60); Est Glom Filt Rate - Afr Amer 65 mL/min (>60); Estimated Creatinine Clearance 37.03 ml/min; Glucose 173 mg/dL (74-106); Potassium 4.2 mmol/L (3.5-5.1); Sodium Level 141 mmol/L (136-145)
[2021-02-26 06:02] LABS: Troponin-I HS 8017 pg/mL (3.0-78.0)
--- NOTE | 2021-02-26 06:30 | EKG12_ITS ---
Test Reason : CP ADMIT Blood Pressure : / mmHG Vent. Rate : 055 BPM Atrial Rate : 055 BPM P-R Int : 138 ms QRS Dur : 100 ms QT Int : 474 ms P-R-T Axes : 049 027 116 degrees QTc Int : [address] & T wave abnormality, consider anterolateral ischemia Abnormal ECG When compared with ECG of 24-FEB-2021 04:28, MANUAL COMPARISON REQUIRED, DATA IS UNCONFIRMED Confirmed by RAJANI HICKEY, KINGSTON ([id number]), subeditor ARGELIA QUISPE ([id number]) on 02/26/2021 12:27:51 P M Referred By: DR JEFFRIES Confirmed By:EDWIN GERARD MD
[2021-02-26] MEDS: Heparin Injection (Vial) 5,000 UNIT/ML VIAL IV (06:42)
[2021-02-26] MEDS: Aspirin E.C. 81 MG Tablet PO (07:47)
[2021-02-26] MEDS: Carvedilol 3.125 MG TABLET PO (07:47)
[2021-02-26] MEDS: Multivitamins,Therapeutic Tablet 1 TABLET PO (07:47)
--- NOTE | 2021-02-26 08:28 | PCM.PN.CARD ---
Subjective Subjective The patient is awake and alert. Yesterday evening he complained of recurrent chest discomfort. He was treated with IV heparin and IV nitroglycerin. He had subsequent resolution of his discomfort. This morning while attempting to have a bowel movement he felt dizzy and became diaphoretic. He returned to bed and rested and has felt better. He is not complaining of ongoing chest discomfort at this time. He states he feels as if he needs to pass gas . Objective Data Vital Signs: Vital Signs Temp Pulse Resp BP Pulse Ox 97.9 F 60 16 124/71 H 99 02/26/21 07:30 02/26/21 07:45 02/26/21 07:45 02/26/21 07:45 02/26/21 07:45 Oxygen Flow Rate (L/min) 2 Oxygen Delivery Method Nasal Cannula Weight: 179 lb 10.828 oz Body Mass Index (BMI) 29.0 Intake & Output: Intake and Output for Last 24 Hours 02/24/21 02/25/21 02/26/21 23:59 23:59 23:59 Intake Total 622.30 / 1022.30 2102.75 / 2104.45 124.55 / 124.55 Output Total 550 / 550 Balance 622.30 / 1022.30 1552.75 / 1554.45 124.55 / 124.55 Lab / Micro Data Result Diagrams: 02/26/21 04:56 02/26/21 04:56 Labs: Laboratory Results - last 24 hr 02/25/21 19:49: Troponin I High Sens 1038 H* 02/25/21 20:00: APTT 29.8 02/25/21 22:19: Troponin I High Sens 889 H* 02/26/21 04:56: WBC 13.0 H, RBC 4.94, Hgb 15.1, Hct 43.6, MCV 88.3, MCH 30.6, MCHC 34.6, RDW Std Deviation 46.0 H, RDW Coeff of Ed 14.3, Plt Count 210, MPV 10.5 02/26/21 04:56: Sodium 141, Potassium 4.2, Chloride 108 H, Carbon Dioxide 25.0, Anion Gap 8, BUN 26 H, Creatinine 1.34 H, Estim Creat Clear Calc 37.03, Est GFR (MDRD) Af Amer 65, Est GFR (MDRD) Non-Af 54 L, BUN/Creatinine Ratio 19.4, Glucose 173 H, Calcium 8.4 L 02/26/21 04:56: Troponin I High Sens 8017 H* 02/26/21 04:56: PT 14.1, INR 1.2, APTT 44.9 H Cardiology Labs/Tests 02/25/21 20:00: APTT 29.8 02/26/21 04:56: WBC 13.0 H, RBC 4.94, Hgb 15.1, Hct 43.6, MCV 88.3, MCH 30.6, MCHC 34.6, Plt Count 210, MPV 10.5 02/26/21 04:56: Sodium 141, Potassium 4.2, Chloride 108 H, Carbon Dioxide 25.0, Anion Gap 8, BUN 26 H, Creatinine 1.34 H, Est GFR (MDRD) Af Amer 65, Est GFR (MDRD) Non-Af 54 L, BUN/Creatinine Ratio 19.4, Glucose 173 H, Calcium 8.4 L 02/26/21 04:56: PT 14.1, INR 1.2, APTT 44.9 H Rhythm: Sinus rhythm EKG: Sinus rhythm; T wave abnormality: Concerning for anterolateral myocardial ischemia ECHO: Pending Physical Exam Narrative Patient seen and evaluated at bedside along with the nursing staff, at bedside and was able to give detailed history machine designer showed underlying normal sinus Cardiovascular exam S1-S2 regular, no murmur no systolic or diastolic murmur, no pericardial rub or gallop rhythm Chest examination clear to auscultation bilateral Examination abdomen soft Examination lower extremity no clubbing no cyanosis no lower extremity edema. Examination of central nervous system no focal neurological deficit. Const alert, oriented x3 and healthy appearing Orientation / Consciousness: awake HEENT normocephalic, head/scalp atraumatic and hearing grossly normal bilaterally Eyes PERRL and EOMs intact bilaterally Neck full ROM, supple and no JVD Chest inspection of chest normal Resp normal respiratory effort and clear to auscultation bilaterally Cardio regular rate, regular rhythm, S1 normal heart sound and S2 normal heart sound GI normal to inspection, nondistended, normoactive bowel sounds Extremity no pedal edema Skin no rashes or lesions noted Psych mental status grossly normal Assessment & Plan Assessment/Plan (1) Acute non-ST elevation myocardial infarction (NSTEMI): PLAN: The patient appears to have findings compatible with an acute non-ST segment elevation LA. His cardiac enzymes have been followed and they decreased, however, based upon his recurrent episodes yesterday evening/this morning he did have a cardiac enzyme which did increase. Additional enzymes are pending. An echocardiogram is pending to further evaluate his left ventricular wall motion and systolic function. He has undergone evaluation with diagnostic cardiac catheterization and has been found to have [place] multivessel disease with the LAD being occluded and supplied by left over left and right to left collateral flow. He has been on medical management. This is being adjusted as needed. (2) Arteriosclerotic cardiovascular disease: PLAN: The patient has a history of LAD PCI with both a bare-metal stent and a Taxus drug-eluting stent placed in 2003. The patient has undergone evaluation as noted. He has had recurrent symptoms. He continues medical management at this time. (3) Stented coronary artery: PLAN: The patient's previous PCI was performed at [facility]. At that time it appears he received an LAD BMS and then subsequently an LAD HOLLY with a Taxus drug-eluting stent. Based upon his cardiac catheterization his LAD is occluded and is supplied by left to left and right to left collateral flow. (4) Hyperlipidemia: PLAN: He should continue risk factor evaluation care as deemed appropriate. Addt'l Comments His case has been discussed with Dr. Yang of CT surgery at [facility]. He did agree to accept the patient in transfer for further evaluation for possible CABG and if not CABG then consideration for high risk PCI of a MANAGER SURGERY (chronic total occlusion) LAD. In the interim, the patient will continue to be followed and treated medically as deemed appropriate pending his transfer to [facility]. The above information has been conveyed to the [facility] staff. This note was generated using a voice recognition system and there may be incorrect words, spelling or punctuation that were not noted when reviewing the office note prior to saving.
[2021-02-26 09:16] LABS: Troponin-I HS 10912 pg/mL (3.0-78.0)
[2021-02-26] MEDS: Cholecalciferol (VIT D3) 25 MCG TABLET (1,000 UNITS) 50 MCG PO (09:21)
[2021-02-26] MEDS: Furosemide 40 MG Tablet PO (09:21)
[2021-02-26] MEDS: Multivitamin (Healthy Eyes) Capsule 1 CAP PO (09:21)
[2021-02-26 11:08] LABS: Troponin-I HS 13272 pg/mL (3.0-78.0)
[2021-02-26 13:20] LABS: Partial Thromboplast Time 66.4 Seconds (24.1-36.2)
--- NOTE | 2021-02-26 14:16 | NURSING ---
This RN called and gave report to OLIVIA Christensen at [facility].
[2021-02-26 14:18] LABS: Troponin-I HS 14930 pg/mL (3.0-78.0)
--- NOTE | 2021-02-26 15:24 | PCM.DC.SUM ---
Providers Date of Admission: 02/24/21 Primary Care Physician: KANDY Mayers Consultations 02/24/21 05:52 Consult: Cardiology Routine Consulting Provider: Bob Clinton Reason for Consult: chest pain EMERGENT Consult: No MD Notified: Yes Date Notified: 02/24/21 Time Notified: 07:28 Method of Notification: Text Method of Consult:: In-Person Reason For Visit: UNSTABLE ANGINA Diagnosis Discharge Diagnosis (1) Acute non-ST elevation myocardial infarction (NSTEMI): Status: Acute Code(s): I21.4 - Non-ST elevation (NSTEMI) myocardial infarction (2) Arteriosclerotic cardiovascular disease: Status: Chronic Code(s): I25.10 - Atherosclerotic heart disease of [place] coronary artery without angina pectoris (3) Stented coronary artery: Status: Chronic Code(s): Z95.5 - Presence of coronary angioplasty implant and graft (4) Hyperlipidemia: Status: Chronic Code(s): E78.5 - Hyperlipidemia, unspecified Medications at Discharge Home Medications clopidogrel 75 mg PO DAILY 07/31/16 vit C,U-Nv-exzrx-lutein-zeaxan 1 ea PO BID 07/31/16 ezetimibe 10 mg PO QHS 08/01/18 aspirin 81 mg tablet,delayed release 81 mg PO DAILY 05/30/19 cholecalciferol (vitamin D3) 125 mcg (5,000 unit) disintegrating tablet 2,000 unit PO DAILY 05/30/19 levothyroxine 50 mcg tablet 50 mcg PO DAILY 05/30/19 furosemide 40 mg tablet 40 mg PO DAILY #90 tab 05/31/19 lactobacillus combination no.9 4 billion cell capsule 4,000 mmu cells PO DAILY 05/31/19 multivitamin 1 tab PO DAILY 05/31/19 carvedilol 3.125 mg tablet 3.125 mg PO BID #60 tab 07/05/19 pravastatin 20 mg PO DAILY 02/24/21 Hospital Course Operations None Procedures 2-D Echocardiogram and Cardiac catheterization Summary of Care Provided Minutes Spent on Discharge: 45 Hospital Course: Patient is an 85-year-old male with a past medical history of CAD s/p stents x2 in 2003 was admitted through the ED on 02/24/2021 with a complaint of dull left-sided aching chest pain which radiated to his left arm. Pain had started a few hours prior to admission. He denied any nausea vomiting, shortness of breath or diaphoresis. Chest pain had no aggravating or relieving factors. Patient was on aspirin and Plavix. In the ED, pain improved with nitroglycerin paste. Troponins were markedly elevated. Cardiology was consulted and patient was admitted and managed for non-STEMI. He was started on heparin drip, continued on his Plavix and beta-blockers. Troponins trended further upwards. He had cardiac cath on 02/25/2021 which showed diffuse multivessel severe CAD. Recommendation was for patient to have CABG. 2D echo showed EF of 60% with mildly enlarged left atrium and valves were largely unremarkable. Plan was to transfer patient to [facility]. On 02/26/2021, patient developed chest pain overnight which necessitated the restarting of heparin drip as well as nitroglycerin drip. Cardiology discussed case with Dr. Rizzo the cardiothoracic surgeon at [facility] and patient was accepted there for treatment. Patient was transferred to [facility] on 02/26/2021. Patient was seen prior to transfer. He said he had had a rough night as the chest pain recurred. He was on nitro drip and heparin drip. He had no other active complaints and review of systems otherwise negative. Physical Exam Const alert and oriented x3 General Appearance: ill appearing Orientation / Consciousness: lethargic Exam Limitations: no limitations HEENT head/scalp atraumatic and moist oral mucous membranes Eyes PERRL, EOMs intact bilaterally and conjunctivae normal Neck no lymphadenopathy Resp normal respiratory effort, no retractions, no use of accessory muscles and clear to auscultation bilaterally Cardio regular rate, regular rhythm, S1 normal heart sound, S2 normal heart sound and no murmurs GI normal to inspection, nondistended, normoactive bowel sounds, soft to palpation, non-tender and non-distended Extremity normal to inspection, full ROM and no clubbing, cyanosis or edema Skin no rashes or lesions noted Neuro oriented x3, CN's II-XII intact bilaterally and moves all extremities Sensorium / Orientation: awake Psych Mood & Affect: depressed Weight / BMI Weight Weight: 179 lb 10.828 oz Body Mass Index (BMI) 29.0 ABG / Lab / Microbiology Data Result Diagrams: 02/26/21 04:56 02/26/21 04:56 Laboratory: Laboratory Results - last 24 hr 02/25/21 19:49: Troponin I High Sens 1038 H* 02/25/21 20:00: APTT 29.8 02/25/21 22:19: Troponin I High Sens 889 H* 02/26/21 04:56: WBC 13.0 H, RBC 4.94, Hgb 15.1, Hct 43.6, MCV 88.3, MCH 30.6, MCHC 34.6, RDW Std Deviation 46.0 H, RDW Coeff of Ed 14.3, Plt Count 210, MPV 10.5 02/26/21 04:56: Sodium 141, Potassium 4.2, Chloride 108 H, Carbon Dioxide 25.0, Anion Gap 8, BUN 26 H, Creatinine 1.34 H, Estim Creat Clear Calc 37.03, Est GFR (MDRD) Af Amer 65, Est GFR (MDRD) Non-Af 54 L, BUN/Creatinine Ratio 19.4, Glucose 173 H, Calcium 8.4 L 02/26/21 04:56: Troponin I High Sens 8017 H* 02/26/21 04:56: PT 14.1, INR 1.2, APTT 44.9 H 02/26/21 07:56: Troponin I High Sens 19685 H* 02/26/21 10:04: Troponin I High Sens 09127 H* 02/26/21 12:47: APTT 66.4 H 02/26/21 13:40: Troponin I High Sens 79308 H* Radiography Diagnostic Testing: Radiology Impression Echocardiogram 02/25/21 17:49 Interpretation Summary The study was technically difficult. Contrast injection was performed. Segmental dysfunction with preserved ejection fraction (see wall motion). The estimated ejection fraction is 60 %. The left atrium is mildly enlarged. There is mild mitral annular calcification. Extension of the mitral annular calcification on the base of the posterior mitral valve leaflet. Trivial mitral valve insufficiency. Trivial tricuspid valve insufficiency. Unable to estimate RV systolic pressure/pulmonary artery pressure due to technically difficult study. No evidence for diastolic dysfunction. Ordering Physician: Roddy Leiva Referring Physician: Levon Mejia Performed By: Toya Hernandez RDCS, RVT Meaningful Use Info Meaningful Use Diagnoses (Choose all that apply): AMI AMI/Post PCI/Angioplasty Aspirin given w/in 24hrs of arrival?: Yes ASA at discharge?: Yes Antiplatelet Therapy at Discharge:: Yes Statins at discharge?: Yes Patrick/ARB at discharge?: Yes Beta Kaitlyn at discharge?: Yes Done w/ Acute VA measure.: Yes Documented LVEF (%): 60 Discharge Plan Admission Admit Date/Time: 02/24/21 05:00 Primary Reason for Your Visit: nonstemi Attending Provider: Brooke Baker Primary Care Provider: Nisa Mejia Consulting Providers: Bob Clinton Discharge Orders/Prescriptions Prescriptions: No Action levothyroxine 50 mcg tablet 50 mcg PO DAILY RF: 0 cholecalciferol (vitamin D3) 5,000 unit tablet,disintegrating 2,000 unit PO DAILY RF: 0 aspirin [Adult Aspirin Regimen] 81 mg tablet,delayed release (DR/EC) 81 mg PO DAILY RF: 0 Adult 50 Plus Probiotic 4 billion cell capsule 4,000 mmu cells PO DAILY RF: 0 multivitamin Tablet 1 tab PO DAILY RF: 0 furosemide 40 mg tablet 40 mg PO DAILY Qty: 90 RF: 3 clopidogrel 75 MG tablet 75 mg PO DAILY RF: 0 vit C,L-Sr-oacpd-lutein-zeaxan 1 EACH capsule 1 ea PO BID RF: 0 ezetimibe 10 MG tablet 10 mg PO QHS RF: 0 pravastatin 20 mg tablet 20 mg PO DAILY RF: 0 carvedilol [Coreg] 3.125 mg tablet 3.125 mg PO BID Qty: 60 RF: 11 Referrals / Follow Up: Roddy Leiva MD [STAFF PHYSICIAN] - Within 2 Weeks Nisa Mejia PA [Primary Care Provider] - Within 2 Weeks Disposition Disposition (needs filled in before D/C Order can be placed): Acute Care Hospital Charges/Coding Visit Charges Inpatient E&M: 27838 Disch Hosp
== END 2021-02-26 14:02 | disposition short-term general hospital (02) | DRG 282 ==
LOC: ED 04:11 → PCU 05:15
PROVIDERS: Internal Medicine; Internal Medicine Cardiovascular Disease; Internal Medicine Interventional Cardiology; Admitting Provider Hospitalist; Emergency Provider Emergency Medicine; PCP Physician Assistant; Visit Provider Student in an Organized Health Care Education/Training Program
DX: I21.4 Non-ST elevation (NSTEMI) myocardial infarction (principal); E03.9 Hypothyroidism, unspecified; E78.5 Hyperlipidemia, unspecified; I10 Essential (primary) hypertension; I65.23 Occlusion and stenosis of bilateral carotid arteries; I25.110 Atherosclerotic heart disease of native coronary artery with unstable angina pectoris; K21.9 Gastro-esophageal reflux disease without esophagitis; N40.0 Benign prostatic hyperplasia without lower urinary tract symptoms; Z86.73 Personal history of transient ischemic attack (TIA), and cerebral infarction without residual deficits; Z85.818 Personal history of malignant neoplasm of other sites of lip, oral cavity, and pharynx; Z95.5 Presence of coronary angioplasty implant and graft; Z79.82 Long term (current) use of aspirin; Z79.02 Long term (current) use of antithrombotics/antiplatelets; Z79.899 Other long term (current) drug therapy
CPT/HCPCS: 36415; 71045; 80048; 80053; 80061; 84484; 85025; 85027; 85610; 85730; 93005; 93306; 93458; 99152; 99153; 99285; C1894; J7030; J7040; Q9957; Q9967; A4216; C1760; C1769; C8929; J2405; J3490

== ENCOUNTER → 2021-04-16 08:58 | Outpatient (CLI) | payer MEDICARE, OTHER, SELFPAY ==
--- NOTE | 2021-04-16 09:06 | PCM.CR.ITP ---
Diagnosis - General Information Admitting Diagnosis: S/P CABG Secondary Diagnosis: STEMI, previous stnets LAD in 2004 Personal Learning Style:: Audio/Visual, Written Barriers to Learning: Hearing Impairment, Vision Impairment Stage of change r/t lifestyle modifications:: Action Gave educational material for:: Treating Heart Disease, How The Heart Works, What it means to have Heart Disease, How Coronary Artery Disease is Diagnosed, Heart Procedures, What Heart Medications Do, Risk Factors & Modifications, Living an Active Life, Nutrition, Emotions & Heart Disease, Stress Management & Relaxation, Sleep Disorders & Heart Disease - Education/Goals Individual Counseling: Initial Assessment: Abnormal Cholesterol Levels, High Blood Pressure, Overweight/Obesity - Over weight, Hypertension Cardiac Rehabilitation Goals: 1. Maintain the individual as the primary focus of care. 2. To improve the patient's quality of life. 3. Identification of cardiac risk factors and provide cardiac risk factor management. 4. Enhance the psychosocial status of the patient. 5. Reconditioning enough to allow the patient to resume customary activities. 6. Control symptoms of cardiac disease Personal Goals: Initial Assessment: Improve energy level, Participate in home exercise program, Improve knowledge of cardiac disease, Improve muscle strength and endurance, Improve diet and eating habits (eat healthier), Control risk factors (learn risk factor modification) Scale for measuring improvement of personal goals: Enter appropriate number in Comments. 2 = Unchanged. 3 = Slightly Better. 4 = Moderate Improvement. 5 = Met my Goal Exercise - Initial Assessment - Visit Date of Eval: 04/16/21 Session #:: 0 - Pre-cardiac rehab evaluation Mets: Pre-: >5 METS for 30 minutes by discharge - Physician Prescribed Exercise Modalities: Treadmill, Airdyne, NuStep Frequency: 3x/week for 12 weeks [36 sessions] Intensity: 60-80% of age predicted maximum heart rate reserve Target Heart Rate:: 88-115 Resting Blood Pressure: 128/82 EKG Type: EKG to be done pre Cardiac Rehab - Outcomes & Goals Goals:: Verbalizes understanding of THR, RPE & goal METS by session 6, Documents in home exercise log/reports 30 min aerobic 5 day/wk by DC, Demonstrates accurate pulse taking by DC - Intervention & Plan Exercise Program Goals: Instruct on personal THR & RPE, Instruct on MET level & personal MET goal, Show patient to take own pulse /validate performance until accurate, Instruct on home exercise - Physical Activity Home Exercise Physical Activity - Home Exercise: Safe Exercise, Warm-up, Self-monitoring, Cool-Down, Home Exercise > 30 min Daily, Sitting Time <3 hours/daily - Outcomes & Goals Outcomes/Goals: Demonstrates correct Warm-up/exercise Cool-Down (S3) if = 2.5 METs, Verbalizes symptoms of exercise intolerance by Session 3 (S3), Demonstrate safe equipment use (S3) & follows exercise prescrition (6) - Intervention & Plan Plan/Intervention: Instruct warm-up & cool-down if exercising at > 2 METs, Instruct on symptoms of exercise intolerance & actions to take, Instruct & monitor on saf, Assess intial functional capacity & safety risk Nutrition - Initial Assessment - Program Goals Nutrition Program Goals: LDL <100 optimal. 100 - 129 Near optimal. 130 - 159 Borderline High. 160 - 189 High. Total Cholesterol <200 desirable. 200 - 239 Borderline High. >/= 240 High. HDL < 40 Low >/=60 High. Triglycerides <150 desirable. <199 optimal. VlDL 5 - 40. HgbA1C <7%. BMI <25 Patient has diagnosis of Hyperlipidemia (ICD E78)?: Yes - Visit Date of Assessment:: 04/16/21 Session #:: 0 - Cholesterol/Lipids Triglycerides (mg/dL): 0 - lab work not made available to CR Determine presence & major risk factors that modify LDL goal: Hypertension or hypertensive medication, Family history of premature CHD in Male < 55 years: female <65 yearsFa, Age men > 45 years; women >/= 55 years Outcomes/Goals: Pt IDs own risk factors & lifestyle modifications by Session 10, Verbalizes symptoms of angina & response by session 3., Pt independently manages Intervention/Plan: Instruct on personal lipid levels & lipid goals/NCEP guidelines, Instruct on cholesterol Referral to dietitian:: Yes - Medical Nutrition Therapy - Diabetes (Other Core Measures) Diabetes Type: Not Applicable - Weight Mgt (Other Care) Not Applicable: Yes Height: 5 ft 4 in Weight:: 168 lb BMI: 28.8 Diagnosis Overweight/Obesity BMI> 30% ICD-10 E66: No Diagnosis High BMI/Morbid Obesity BMI> 35% ICD-10 Z68: No Outcomes/Goals: Pt sets, maintains & shows weight loss goal & trend during rehab Intervention/Plan: Instruct on ideal BMI & set weight loss goal w/patient, Assist pt to ID & incorporate diet changes for weight loss by S9, Encourage goal of using 250-300dcal per session for weight loss - Healthy Eating Habits Will attend diet classes:: Yes Outcomes/Goals:: Consume diet rich in vegs,fruits,whole grain/high fiber,fish,lean meat, Limit sat/trans fats,cholesterol & added salts & sugars Intervention/Plan:: Assess current eating habits - Education Gave educational materials for:: Healthy eating Nutrition - 30-Day Assessment Nutrition - 60-Day Assessment Nutrition - 90-Day Assessment Nutrition - Final Assessment Medical - Initial Assessment - Visit Date of Eval: 04/16/21 Session #:: 0 - Medication Compliance Preventative Medication(s):: Aspirin, Clopidogrel/P2Y12 inhibit, Statin/lipid, Beta fito H/O mental health issues: depression, anxiety, or addiction?: No Doesn?t believe in the benefits of treatment?: No Believes medications are unnecessary or harmful?: No Has a concern about medication side effects?: No Expresses concern over the cost of medications?: No Outcomes/Goals: Verbalizes medications,desired effect & common side effects @ DC, Pt self-reports following medication regimen, Keeps card in wallet w/medications listed by DC Interventions/plans: Instruct on medication effects & side effects, Review medication list w/patient every two weeks, Instruct importance of taking meds as ordered & assist problem solving - Tobacco Use Tobacco Use: Non-smoker - Hypertension Hypertension Diagnosis:: Hypertension ICD-10 I10 Resting Blood Pressure:: 128/72 [place] [employer] Hypertension Guidelines: [place] [employer] Hypertension Guidelines. Normal BP Less than 120/80. Elevated BP 120/80. Hypertension Stage 1: BP 130-139/80-89. Hypertesnion Stage 2: BP 140 or higher/90 or higher. Hypertension Crisis: BP higher than 180/120 Outcomes/Goals: Able to verbalize/achieve optimal blood pressure <130/80, Incorporates diet changes & exercise for blood pressure control by DC Interventions/plan: Instruct on optimal blood pressure, hypertension & medications, Instruct on effects of sodium, alcohol, stress, exercise &hypertension - Tobacco Cessation Referral Smoking Cessation Referral:: No Individual Education/Counseling:: No Education Schedule Given:: Yes Medical- 30-Day Assessment Medical- 60-Day Assessment Medical- 90-Day Assessment Medical - Final Assessment Psychosocial - Initial Assess - VIsit Date of Eval: 04/16/21 Session #:: 0 - Pre-cardiac rehab evaluation Not Applicable: Yes History of previous Mental disease:: No - Psychosocial Test Tool Used:: [employer] QOL Cardiac, PHQ-9 Questionnaire phq-9 Severity: Severity. 1-4 Minimal Depression. 5-9 Mild Depression. 10-14 Moderate Depression. 15-19 Moderately Sever Depression. 20-27 Severe Depression. Rule: - Referral to Behavioral Health PS - Interventions: Yes Attend Stress Management Classes, No Referral to Behavioral Health if PHQ-9 score >9:, No Referral to [facility], No Referral to Physician if PHQ-9 if score is 5-9: - Outcomes/Goals: See list Psychosocial Outcomes/Goals:: ID's personal stressors & 2 strategies to manage stress by discharge - Intervention/Plan: See List Interventions/Plan:: Assess stressors,coping strategies & signs of derpression on admission, Instruct/assist pt to develop coping & personal stress Mgt strategies, Instruct patient to recognize signs & symptoms of depression, Instruct patient to recog Psychosocial - 30-Day Assess Psychosocial - 60-Day Assess Psychosocial - 90-Day Assess Psychosocial - Final Assessmen Patient Health Questionnaire Initial Assessment 1. Little interest or pleasure in doing things: Not at all 2. Feeling down, depressed, or hopeless: Not at all 3. Trouble falling or staying asleep, or sleeping too much: Not at all 4. Feeling tired or having little energy: Not at all 5. Poor appetite or overeating: Not at all 6. Feeling bad about yourself -- or that you are a failure or have let yourself or your family down: Not at all 7. Trouble concentrating on things, such as reading the newspaper or watching television: Not at all 8. Moving or speaking so slowly that other people could have noticed. Or the opposite - being so fidgety or restless that you have been moving around a lot more than usual: Not at all 9. Thoughts that you would be better off , or of hurting yourself in some way: Not at all How difficult have these problems made it for you to do your work, take care of things at home, or get along with other people?: Not difficult at all Total Score: 0 YOMAIRA-Q SV Test - Statements CAD is a disease of the arteries in the heart: False Examples of risk factors for heart disease: True Angina is chest pain or discomfort: True The benefits of resistance training include: True Eating more meat and dairy products: False Anti-platelet medications such as aspirin are important: True The only effective way to manage stress: False An exercise warm-up slowly increases heart rate: True Prepared, processed foods usually have high sodium: True Depression is common after a heart attack: True The statin medications lower cholesterol: I Don't Know To control blood pressure, lower the amount of sodium: True If someone gets chest discomfort during walking: False Transfats are partially hydrogenated vegetable oils: True Sleep apnea that is not treated increases the risk: I Don't Know To control cholesterol, one should become a vegetarian: False Someone knows if he/she is exercising at the right level: True Diabetes cannot be prevented with exercise & health eating: False Stress is a large risk for heart attack: True A diet that can help lower blood pressure is rich in: True - Total Score Total Correct Responses: 18 Self-Efficacy Initial Assessment We would like to know how confident you are in doing certain activities. Please select your confidence level for:: Select your confidence level for the following using the scale 1-10 where 1 is not at all confident and 10 is totally confident. Your score is the average of all 6 responses. Fatigue: How confident are you that you can keep the fatigue caused by your disease from interfering with the things you want to do? Select Number: 5 Physical Discomfort or Pain: How confident are you that you can keep the physical discomfort or pain of your disease from interfering with the things you want to do? Select Number: 5 Emotional Distress: How confident are you that you can keep the emotional distress caused by your disease from interfering with the things you want to do? Select Number: 8 Other Symptoms or Health Problems: How confident are you that you can keep other symptoms or health problems from interfering with the things you want to do? Select Number: 6 Different Tasks and Activities: How confident are you that you can do the different tasks and activities needed to manage your health condition so as to reduce your need to see a doctor? Select Number: 7 Medication: How confident are you that you can do things other than just taking medication to reduce how much your illness affects your everyday life? Select Number: 9 Total Score:: 6 Nutrition Survey - Nutrition Survey Initial Have you lost >10 lbs over the past 2 months without trying?: Yes Are you following a special diet at home for diabetes, low fat, or low salt?: No Are you interested in meeting with a dietitian for help understanding your diet?: No Do you eat less than 3 meals a day?: No Do you eat fatty meats (triplett, sausage, ribs, etc), fried foods, desserts, large amounts of salad dressings, margarine, butter, or cheese most days?: No Do you have food allergies? [Enter types in comment field]: Yes Do you eat in restaurants more than 3 times a week?: No Do you season food with salt, seasoning salt, or garlic salt?: No Do you used canned, boxed, frozen meals, or soups, seasoning packets?: Yes Total Score:: 3
--- NOTE | 2021-04-16 09:07 | PCM.CR.HP2 ---
CR - History & Physical - General Arrival date:: 04/16/21 Arrival time:: 09:00 Date of Referral:: 04/09/21 Date of CR Evaluation:: 04/16/21 Referring Physician: Dr. Chip Flannery Primary Diagnosis: S/P CABG - History of Present Cardiac Event Onset Date: Enter Onset Date of cardiac illnesses in Comment field below Acute Myocardial Infarction within 12 months:: Yes - STEMI 03/01/2021 Coronary Artery Bypass Graft:: Yes - 03/01/2021 PTCA or coronary stenting:: Yes - 2003 had 2 stents in the LAD Type of Symptoms:: Chest pain adn came to ER at [facility], at ER had an episode f diaphoresis and fatigue while attempting to use the restroom. He was transferred to [facility] for further evaluation/CABG eval. Interventions with present event:: Had double bypass at [facility]. In May 2020 patient had CVA stroke. - Sleep Disorder Evaluation Hx of Sleep Apnea: Yes Do you snore loudly (louder than talking or can be heard through closed doors)?: Yes Do you often feel tired/ fatigued/ sleepy during daytime?: No Has anyone observed you stop breathing during sleep?: No History of Hypertension (for STOP score): Yes STOP Results: Positive - Medications Home Medications: Ambulatory Orders Medication Instructions Recorded clopidogrel 75 mg PO DAILY 07/31/16 vit C,W-Rr-zcpak-lutein-zeaxan 1 ea PO BID 07/31/16 ezetimibe 10 mg PO QHS 08/01/18 aspirin 81 mg tablet,delayed 81 mg PO DAILY 05/30/19 release cholecalciferol (vitamin D3) 125 2,000 unit PO DAILY 05/30/19 mcg (5,000 unit) disintegrating tablet levothyroxine 50 mcg tablet 50 mcg PO DAILY 05/30/19 lactobacillus combination no.9 4 4,000 mmu cells PO DAILY 05/31/19 billion cell capsule multivitamin 1 tab PO DAILY 05/31/19 carvedilol 3.125 mg tablet 3.125 mg PO BID #60 tab 07/05/19 pravastatin 20 mg PO DAILY 02/24/21 acetaminophen 500 mg tablet 1,000 mg PO Q6H PRN tab 03/07/21 furosemide 20 mg tablet 20 mg PO DAILY 03/07/21 lidocaine 4 % topical patch 1 patch TOPICAL DAILY PRN 03/07/21 magnesium oxide 400 mg PO DAILY 03/07/21 melatonin 3 mg tablet 3 mg PO HS PRN 03/07/21 polyethylene glycol 3350 17 17 g PO DAILY 03/07/21 gram/dose oral powder potassium chloride 20 mEq 20 meq PO DAILY 03/07/21 tablet,extended release sennosides 8.6 mg tablet 8.6 mg PO BID 03/07/21 - Allergies Allergies/Adverse Reactions: Allergies iodine Allergy (Severe, Verified 02/24/21 03:05) swelling: clarify at appt re; iodine dye shellfish derived Allergy (Verified 02/24/21 03:05) Anaphylaxis Tehwbhs-VFP-RnV Reductase Inhibitor [Kumskfv-Nsi-Wjk Reductase Inhibitor] Adverse Reaction (Intermediate, Verified 02/24/21 03:05) intolerance; myalgias Advanced Directives - Advanced Directives Power of Certified Lactation Educator: Yes Living Will: Yes Advance Directives Information Provided: No Advance Directives on File: No DNR Order?:: No - MOLST See MOLST form: No Past Medical History - Covid-19 Screening Fever: No Unexplained muscle aches: No Current respiratory symptoms: No Upper respiratory infections symptoms: No Gastro-intestinal symptoms: Yes - Lymphoma throat S/P Radiation Hme-Tobb-Frxzeh symptoms: No Has tested positive for COVID-19 in last 30 days: No Date of testin04/16/21 - No COVID vaccines Had contact w/person w/symptoms or Covid-19 (+) last 14 days: No Has High Risk Exposures ID'd by Health dept/Inf Control team: No 65 years or older:: Yes Lives in Assisted Living facility:: No Has a chronic lung disease or moderate to severe asthma:: No Has a serious heart condition:: Yes Immunocompromised:: Yes Severely obese (Body Mass Index of 40 or higher):: No Diabetic:: No Has chronic kidney disease undergoing dialysis:: No Has liver disease:: No - Past Medical Illness Medical History: Past Medical History (Last Updated 02/27/21 @ 09:19 by Pascale Ball) Acute non-ST elevation myocardial infarction (NSTEMI) I21.4 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 Luis Wilson, [facility]; 01/12/2004: Cutting balloon utilized to dilate in-stent restenosis; 3.0 X 8.0 TAXUS HOLLY to ostium of LAD proximal to previously placed stent Atherosclerotic heart disease of [place] coronary artery without angina pectoris I25.10 BPH (benign prostatic hyperplasia) N40.0 Carotid artery disease I77.9 Carotid stenosis, bilateral I65.23 Chest pain R07.9 Dyspnea on exertion R06.09 Edema R60.9 GERD (gastroesophageal reflux disease) K21.9 History of cancer tonsil Onset Date: 1983 Z85.818 Hyperlipidemia E78.5 Hypertension I10 Hypothyroidism E03.9 Non-smoker Z78.9 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 Unstable angina I20.0 - Past Surgical History Surgical History: Past Surgical History (Last Updated 03/05/21 @ 09:03 by Pascale Ball) History of cataract extraction Z98.49 History of colonoscopy Z98.890 History of coronary artery bypass surgery Onset Date: ~03/01/21 Z95.1 CABG x2- HERRERA to LAD, SVG to PDA @ [facility] 03/01/21 history of left clavicle fracture required pinning History of left heart catheterization Onset Date: 02/25/21 Z98.890 LEFT MAIN: Angiographically normal; LEFT ANTERIOR DESCENDING ARTERY: PROX LAD: Previously placed stent is occluded; MID LAD: mid to distal: fills from left to left and right to left collaterals; CIRCUMFLEX ARTERY: PROX CIRC: 25 % Stenosis; OM 1: Distal - bifurcating branch: ostial: 75 % Stenosis; RAMUS: proximal: 90 % Stenosis; RIGHT CORONARY ARTERY: Mild luminal irregularities; DISTAL RCA: 75 % Stenosis; RT PDA: Mid - 85 % Stenosis; COLLATERAL FLOW: Collateral flow from Left to Left; Collateral flow from Right to Left; AORTIC ROOT: Angiographically normal RECOMMENDATION: Surgery consult for coronary revascularization per cardiac cath 02/25/21 ; 09/06/2003: 95% stenosis to proximal LAD: referred to Dr. Luis Dey @ [facility] for stent to LAD 80% in stent re-stenosis: recommend re-stent, pt referred to Dr. Juan José Beckford at [facility] (per LHC done 01/11/[address] Kyaw German @ [facility]) 02/03/[address] Juan José Beckford @ [facility] for CP: stents all open, nonobstructive disease, MVP with no MR, normal LV. History of tonsillectomy Z90.89 Stented coronary artery Z95.5 09/06/2003: 3.0 X 18 mm Supervisor Composing Room stent to LAD per Dr. Luis Wilson, [facility]; 01/12/2004: Cutting balloon utilized to dilate in-stent restenosis; 3.0 X 8.0 TAXUS HOLLY to ostium of LAD proximal to previously placed stent - Family History Summary Family History: Family History (Last Reviewed 02/24/21 @ 05:[address] Danilo Newton MD) Brother Brain aneurysm Other CAD (coronary artery disease) Social History - Smoking History Smoking Status: Never smoker Hx Tobacco Use: No Hx Smoking Exposure: No - Alcohol Use Alcohol Usage: No - Substance Abuse Hx Substance Use: No - Occupation Occupation (List type of work in comments):: Retired - Hobbies, Recreation, Social Activities Hobbies: Farm - Dairy Farming Program, Walking - couple hours daily, Other - reading TV Recreational Activities: I am able to engage in most, but not all activities Social Environment - Status Marital Status: - Current Living Arrangements Living Environment:: Spouse - Children How many children do you have?: 4 Do any of your children live nearby?: Yes - Safety Do you feel safe in your surroundings?: Yes - Assistance Do you need any assistance at home?: helps him some with dressing showering (safety) more than anything Review of Systems - Review of Systems Hints: Right click = Denies ([place]ash). Left click = Reports ([place]) Review of Present Symptoms: Reports: Wound Healing, Dizziness/Lightheadedness - found today standing in line at registration felt a little dizziness while standing on line and leaned against the wall., Fatigue, Appetite - Normal, Sleep - Normal. Denies: Shortness of Breath at Rest, Shortness of Breath with Exertion, Operative Discomfort, Heart Arrhythmia/Irregularities, Appetite - Special Diet - Pain Is Patient Pain Free?: Yes Pain Location: none Pain Level: 0/10 Risk Factor Assessment - Chief Complaint Chief Complaint: Patient is a 86 yr old wiht PMH of CAD with stents in 2003 to the LAD, Recently had chest pain and came ot the [facility] ER for evaluation and was then transferredto [facility] for CABG evaluation. - Vital Signs Temperature: 97.6 F Respiratory Rate: 14 Pulse Ox: 96 Blood Pressure: 106/62 - Pulse Pulse Rate: 66 Pulse Rhythm: Regular - Hypertension Blood Pressure Sitting - Left Arm: 106/62 - Obesity Height: 5 ft 6 in Weight:: 168 lb Weight in Pounds: 168.0 lbs Weight Source: Standing Scale Body Mass Index (BMI): 27.1 Nutritional Referral for Obesity: No - Physical Inactivity Physical Inactivity: Reg Exercise 30 min/day - Risk Stratification Risk Guidelines: Lowest Risk: Risk Factor for Dyslipidemia, Risk Factor for Hypertension, Risk Factor for Depression, Moderate Risk: Risk Factor for Sedentary Lifestyle - Family History Family History: Family History (Last Reviewed 02/24/21 @ 05:[address] Danilo Newton MD) Brother Brain aneurysm Other CAD (coronary artery disease) Motivation - Motivation to Participate On a scale of 1 to 10, how prepared are you to commit to attending program?: 20 What do you see as barriers to successfully being able to complete the program?: left weakness mostly left arm from CVA What do you see as the benefits of succesfully completing the program? In other words, what do you hope to get out of participating in the program?: healthier, more energy Are there issues you are dealing with that will interfere with completing the program?: no Do you have a spouse or signficant other, family or friends who will help support you to complete the program?: yes
[2021-04-16 09:34] VITALS: BP 128/72; BP 128/82; BMI 28.8
[2021-04-16 10:00] VITALS: BP 106/62; PULSE 66; RESP 14; TEMP 36.4; O2SAT 96; BMI 27.1
--- NOTE | 2021-04-16 11:50 | EKG12_ITS ---
Test Reason : CARDIAC REHAB Blood Pressure : / mmHG Vent. Rate : 060 BPM Atrial Rate : 060 BPM P-R Int : 138 ms QRS Dur : 096 ms QT Int : 440 ms P-R-T Axes : 055 061 137 degrees QTc Int : 440 ms Normal sinus rhythm Possible Left atrial enlargement Septal infarct , age undetermined T wave abnormality, consider anterolateral ischemia Abnormal ECG Confirmed by HUE HICKEY, DANIELA ([id number]), continuity editor ARGELIA QUISPE ([id number]) on 04/17/2021 10:02:06 AM Referred By: Chip Flannery Confirmed By:DANIELA SWANN MD
== END ==
PROVIDERS: PCP Physician Assistant
DX: I25.10 Atherosclerotic heart disease of native coronary artery without angina pectoris (principal); E78.5 Hyperlipidemia, unspecified; I10 Essential (primary) hypertension; K21.9 Gastro-esophageal reflux disease without esophagitis; I25.2 Old myocardial infarction; N40.0 Benign prostatic hyperplasia without lower urinary tract symptoms; I65.23 Occlusion and stenosis of bilateral carotid arteries; Z85.818 Personal history of malignant neoplasm of other sites of lip, oral cavity, and pharynx; Z87.19 Personal history of other diseases of the digestive system; Z95.1 Presence of aortocoronary bypass graft; Z79.82 Long term (current) use of aspirin; Z79.899 Other long term (current) drug therapy
CPT/HCPCS: 93005

== ENCOUNTER 2021-05-27 15:45 | Outpatient (RCR) | payer MEDICARE, OTHER, SELFPAY ==
[2021-04-16 09:34] VITALS: BMI 28.8
== END 2021-05-27 23:59 ==
LOC: CR 15:45
PROVIDERS: PCP Physician Assistant
DX: Z95.1 Presence of aortocoronary bypass graft (principal)
CPT/HCPCS: 93798

== ENCOUNTER 2021-06-24 15:45 | Outpatient (RCR) | payer MEDICARE, OTHER, SELFPAY ==
[2021-04-16 09:34] VITALS: BMI 28.8
--- NOTE | 2021-06-17 10:56 | PCM.CR.ITP ---
Diagnosis Exercise - 30-day Assessment - Visit Date of Eval: 06/17/21 Session #:: 14 - Patient started his CR on 04/29/2021 - Physician Prescribed Exercise Modalities: NuStep, SciFit, Lateral Soccer Ball Assembler Frequency: 3x/week for 12 weeks [36 sessions] Intensity: 60-80% of age predicted maximum heart rate reserve Current METSs:: 2.5 Target Heart Rate:: 88-115 Current RPE:: 12-15 Maximum Excercise HR:: 75 Resting Blood Pressure: 130/60 Maximum Exercise Blood Pressure: 152/74 EKG Type: NSR with rare occasional PVCs - Outcomes & Goals Goals:: Verbalizes understanding of THR, RPE & goal METS by session 6, Documents in home exercise log/reports 30 min aerobic 5 day/wk by DC, Demonstrates accurate pulse taking by DC - Intervention & Plan Exercise Program Goals: Instruct on personal THR & RPE, Instruct on MET level & personal MET goal, Show patient to take own pulse /validate performance until accurate, Instruct on home exercise - 30-day Reassessments 30 day Reassessments:: Progressing - Physical Activity Home Exercise Physical Activity - Home Exercise: Safe Exercise, Warm-up, Self-monitoring, Cool-Down, Home Exercise > 30 min Daily, Sitting Time <3 hours/daily - Outcomes & Goals Outcomes/Goals: Demonstrates correct Warm-up/exercise Cool-Down (S3) if = 2.5 METs, Verbalizes symptoms of exercise intolerance by Session 3 (S3), Demonstrate safe equipment use (S3) & follows exercise prescrition (6) - Intervention & Plan Plan/Intervention: Instruct warm-up & cool-down if exercising at > 2 METs, Instruct on symptoms of exercise intolerance & actions to take, Instruct & monitor on saf, Assess intial functional capacity & safety risk - 30-day Reassessments 30 day Reassessments:: Progressing Nutrition - Initial Assessment Nutrition - 30-Day Assessment - Program Goals Nutrition Program Goals: LDL <100 optimal. 100 - 129 Near optimal. 130 - 159 Borderline High. 160 - 189 High. Total Cholesterol <200 desirable. 200 - 239 Borderline High. >/= 240 High. HDL < 40 Low >/=60 High. Triglycerides <150 desirable. <199 optimal. VlDL 5 - 40. HgbA1C <7%. BMI <25 Patient has diagnosis of Hyperlipidemia (ICD E78)?: Yes - Visit Date of Assessment:: 06/17/21 Session #:: 14 - Cholesterol/Lipids Triglycerides (mg/dL): 0 - not available from [facility] Determine presence & major risk factors that modify LDL goal: Hypertension or hypertensive medication, Family history of premature CHD in Male < 55 years: female <65 yearsFa, Age men > 45 years; women >/= 55 years Outcomes/Goals: Pt IDs own risk factors & lifestyle modifications by Session 10, Verbalizes symptoms of angina & response by session 3., Pt independently manages Intervention/Plan: Instruct on personal lipid levels & lipid goals/NCEP guidelines, Instruct on cholesterol Referral to dietitian:: Yes - Medical Nutrition Therapy 's 30-day Reassessments:: Progressing - Diabetes (Other Core Measures) Diabetes Type: Not Applicable - Weight Mgt (Other Care) Not Applicable: Yes Height: 5 ft 4 in Weight:: 162 lb 8 oz BMI: 27.8 Diagnosis Overweight/Obesity BMI> 30% ICD-10 E66: No Diagnosis High BMI/Morbid Obesity BMI> 35% ICD-10 Z68: No Outcomes/Goals: Pt sets, maintains & shows weight loss goal & trend during rehab Intervention/Plan: Instruct on ideal BMI & set weight loss goal w/patient, Assist pt to ID & incorporate diet changes for weight loss by S9, Encourage goal of using 250-300dcal per session for weight loss 30 day Reassessments:: Progressing - Healthy Eating Habits Will attend diet classes:: Yes Outcomes/Goals:: Consume diet rich in vegs,fruits,whole grain/high fiber,fish,lean meat, Limit sat/trans fats,cholesterol & added salts & sugars Intervention/Plan:: Assess current eating habits 30-day Reassessments:: Progressing - Education Gave educational materials for:: Healthy eating Nutrition - 60-Day Assessment Nutrition - 90-Day Assessment Nutrition - Final Assessment Medical - Initial Assessment Medical- 30-Day Assessment - Visit Date of Eval: 06/17/21 Session #:: 14 - Medication Compliance Preventative Medication(s):: Aspirin, Clopidogrel/P2Y12 inhibit, Statin/lipid, Beta fito H/O mental health issues: depression, anxiety, or addiction?: No Doesn?t believe in the benefits of treatment?: No Believes medications are unnecessary or harmful?: No Has a concern about medication side effects?: No Expresses concern over the cost of medications?: No Outcomes/Goals: Verbalizes medications,desired effect & common side effects @ DC, Pt self-reports following medication regimen, Keeps card in wallet w/medications listed by DC Interventions/plans: Instruct on medication effects & side effects, Review medication list w/patient every two weeks, Instruct importance of taking meds as ordered & assist problem solving 30-day Reassessments:: Progressing - Tobacco Use Tobacco Use: Non-smoker - Hypertension Hypertension Diagnosis:: Hypertension ICD-10 I10 Resting Blood Pressure:: 130/60 Citizen [place] [employer] Hypertension Guidelines: Citizen [place] [employer] Hypertension Guidelines. Normal BP Less than 120/80. Elevated BP 120/80. Hypertension Stage 1: BP 130-139/80-89. Hypertesnion Stage 2: BP 140 or higher/90 or higher. Hypertension Crisis: BP higher than 180/120 Peak Exercise Blood Pressure:: 152/74 Outcomes/Goals: Able to verbalize/achieve optimal blood pressure <130/80, Incorporates diet changes & exercise for blood pressure control by DC Interventions/plan: Instruct on optimal blood pressure, hypertension & medications, Instruct on effects of sodium, alcohol, stress, exercise &hypertension 30 day Reassessments:: Progressing - Tobacco Cessation Referral Smoking Cessation Referral:: No Individual Education/Counseling:: No Education Schedule Given:: Yes Medical- 60-Day Assessment Medical- 90-Day Assessment Medical - Final Assessment Psychosocial - Initial Assess Psychosocial - 30-Day Assess - VIsit Date of Eval: 06/17/21 Session #:: 14 Not Applicable: Yes History of previous Mental disease:: No - Psychosocial Test Tool Used:: PHQ-9 Questionnaire phq-9 Severity: Severity. 1-4 Minimal Depression. 5-9 Mild Depression. 10-14 Moderate Depression. 15-19 Moderately Sever Depression. 20-27 Severe Depression. Rule: - Referral to Behavioral Health PS - Interventions: Yes Attend Stress Management Classes, No Referral to Behavioral Health if PHQ-9 score >9:, No Referral to [facility], No Referral to Physician if PHQ-9 if score is 5-9: - Outcomes/Goals: See list Psychosocial Outcomes/Goals:: ID's personal stressors & 2 strategies to manage stress by discharge - Intervention/Plan: See List Interventions/Plan:: Assess stressors,coping strategies & signs of derpression on admission, Instruct/assist pt to develop coping & personal stress Mgt strategies, Instruct patient to recognize signs & symptoms of depression, Instruct patient to recog - 30-day Reassessments: 30 day Reassessments:: Progressing Psychosocial - 60-Day Assess Psychosocial - 90-Day Assess Psychosocial - Final Assessmen Patient Health Questionnaire 30-Day Re-eval Assessment 1. Little interest or pleasure in doing things: Not at all 2. Feeling down, depressed, or hopeless: Not at all 3. Trouble falling or staying asleep, or sleeping too much: Not at all 4. Feeling tired or having little energy: Not at all 5. Poor appetite or overeating: Not at all 6. Feeling bad about yourself -- or that you are a failure or have let yourself or your family down: Not at all 7. Trouble concentrating on things, such as reading the newspaper or watching television: Not at all 8. Moving or speaking so slowly that other people could have noticed. Or the opposite - being so fidgety or restless that you have been moving around a lot more than usual: Not at all 9. Thoughts that you would be better off , or of hurting yourself in some way: Not at all How difficult have these problems made it for you to do your work, take care of things at home, or get along with other people?: Not difficult at all Total Score: 0 Self-Efficacy 30-Day Re-eval Assessment We would like to know how confident you are in doing certain activities. Please select your confidence level for:: Select your confidence level for the following using the scale 1-10 where 1 is not at all confident and 10 is totally confident. Your score is the average of all 6 responses. Fatigue: How confident are you that you can keep the fatigue caused by your disease from interfering with the things you want to do? Select Number: 6 Physical Discomfort or Pain: How confident are you that you can keep the physical discomfort or pain of your disease from interfering with the things you want to do? Select Number: 7 Emotional Distress: How confident are you that you can keep the emotional distress caused by your disease from interfering with the things you want to do? Select Number: 8 Other Symptoms or Health Problems: How confident are you that you can keep other symptoms or health problems from interfering with the things you want to do? Select Number: 7 Different Tasks and Activities: How confident are you that you can do the different tasks and activities needed to manage your health condition so as to reduce your need to see a doctor? Select Number: 7 Medication: How confident are you that you can do things other than just taking medication to reduce how much your illness affects your everyday life? Select Number: 9 Total Score:: 7 Nutrition Survey
[2021-06-17 11:25] VITALS: BP 130/60; BP 152/74; BMI 27.8
== END 2021-06-24 23:59 ==
LOC: CR 15:45
PROVIDERS: PCP Physician Assistant
DX: Z95.1 Presence of aortocoronary bypass graft (principal)
CPT/HCPCS: 93798

== ENCOUNTER 2021-06-26 08:26 | Outpatient (RCR) | payer MEDICARE, OTHER, SELFPAY ==
[2021-06-17 11:25] VITALS: BMI 27.8
[2021-06-25 00:14] VITALS: BP 130/60; BP 152/74
--- NOTE | 2021-07-12 10:37 | PCM.CR.ITP ---
Diagnosis - General Information Admitting Diagnosis: S/P CABG Exercise - 90-day Assessment - Visit Date of Eval: 07/12/21 Session #:: 19 Comments:: Pt is on medical hold due to a critical stenosis in the carotid artery. - Physician Prescribed Exercise Modalities: NuStep, SciFit, Lateral Chemist Steroids Frequency: 3x/week for 12 weeks [36 sessions] Intensity: 60-80% of age predicted maximum heart rate reserve Current METSs:: 2 Target Heart Rate:: 88-115 Current RPE:: 12-14 Maximum Excercise HR:: 89 Resting Blood Pressure: 136/62 Maximum Exercise Blood Pressure: 164/80 EKG Type: NSR w/occas pvc's, rare vent couplet, rare vent bigeminy - Outcomes & Goals Goals:: Verbalizes understanding of THR, RPE & goal METS by session 6, Documents in home exercise log/reports 30 min aerobic 5 day/wk by DC, Demonstrates accurate pulse taking by DC, Other additional outcome/goals: see below - Intervention & Plan Exercise Program Goals: Instruct on personal THR & RPE, Instruct on MET level & personal MET goal, Show patient to take own pulse /validate performance until accurate, Instruct on home exercise, Other additional plan/int - 30-day Reassessments 30 day Reassessments:: Progressing - Physical Activity Home Exercise Physical Activity - Home Exercise: Safe Exercise, Warm-up, Self-monitoring, Cool-Down, Home Exercise > 30 min Daily, Sitting Time <3 hours/daily - Outcomes & Goals Outcomes/Goals: Demonstrates correct Warm-up/exercise Cool-Down (S3) if = 2.5 METs, Verbalizes symptoms of exercise intolerance by Session 3 (S3), Demonstrate safe equipment use (S3) & follows exercise prescrition (6), Other: See below - Intervention & Plan Plan/Intervention: Instruct warm-up & cool-down if exercising at > 2 METs, Instruct on symptoms of exercise intolerance & actions to take, Instruct & monitor on saf, Assess intial functional capacity & safety risk, Other See below - 30-day Reassessments 30 day Reassessments:: Progressing Nutrition - Initial Assessment Nutrition - 30-Day Assessment Nutrition - 60-Day Assessment Nutrition - 90-Day Assessment - Program Goals Nutrition Program Goals: LDL <100 optimal. 100 - 129 Near optimal. 130 - 159 Borderline High. 160 - 189 High. Total Cholesterol <200 desirable. 200 - 239 Borderline High. >/= 240 High. HDL < 40 Low >/=60 High. Triglycerides <150 desirable. <199 optimal. VlDL 5 - 40. HgbA1C <7%. BMI <25 Patient has diagnosis of Hyperlipidemia (ICD E78)?: Yes - Visit Date of Assessment:: 07/12/21 Session #:: 19 - Cholesterol/Lipids Determine presence & major risk factors that modify LDL goal: Hypertension or hypertensive medication, Low HDL cholesterol <40 mg/dL*, Family history of premature CHD in Male < 55 years: female <65 yearsFa, Age men > 45 years; women >/= 55 years Outcomes/Goals: Pt IDs own risk factors & lifestyle modifications by Session 10, Verbalizes symptoms of angina & response by session 3., Pt independently manages, Other Additional Outcomes/Goals: Intervention/Plan: Advocate for lipid panel cholesterol medication if applicable, Instruct on personal lipid levels & lipid goals/NCEP guidelines, Instruct on cholesterol, Other additional plan/int Referral to dietitian:: Yes - medical nutrition therapy 30-day Reassessments:: Progressing - Weight Mgt (Other Care) Height: 5 ft 4 in Weight:: 74.162 kg BMI: 28.0 Outcomes/Goals: Pt sets, maintains & shows weight loss goal & trend during rehab, Other additional outcomes/goals Intervention/Plan: Instruct on ideal BMI & set weight loss goal w/patient, Assist pt to ID & incorporate diet changes for weight loss by S9, Refer to Structured Weight Loss program as appropriate, Encourage goal of using 250-300dcal per session for weight loss, Other additional plan/interventions 30 day Reassessments:: Progressing - Healthy Eating Habits Will attend diet classes:: Yes Outcomes/Goals:: Consume diet rich in vegs,fruits,whole grain/high fiber,fish,lean meat, Limit sat/trans fats,cholesterol & added salts & sugars, Other additional outcome/goals: Intervention/Plan:: Assess current eating habits, Other Additional plan/interventions 30-day Reassessments:: Progressing - Education Gave educational materials for:: Signs & symptoms of hypoglycemia, Signs & symptoms of hyperglycemia, Relate diabetes to coronary artery disease, Healthy eating Nutrition - Final Assessment Medical - Initial Assessment Medical- 30-Day Assessment Medical- 60-Day Assessment Medical- 90-Day Assessment - Visit Date of Eval: 07/12/21 Session #:: 19 - Medication Compliance Preventative Medication(s):: Aspirin, Clopidogrel/P2Y12 inhibit, Statin/lipid, Beta fito H/O mental health issues: depression, anxiety, or addiction?: No Doesn?t believe in the benefits of treatment?: No Believes medications are unnecessary or harmful?: No Has a concern about medication side effects?: No Expresses concern over the cost of medications?: No Outcomes/Goals: Verbalizes medications,desired effect & common side effects @ DC, Pt self-reports following medication regimen, Keeps card in wallet w/medications listed by DC, Other additional outcome/goals: Interventions/plans: Instruct on medication effects & side effects, Review medication list w/patient every two weeks, Instruct importance of taking meds as ordered & assist problem solving, Other additional 30-day Reassessments:: Progressing - Tobacco Use Tobacco Use: Non-smoker 30-day Reassessments:: Progressing - Hypertension Hypertension Diagnosis:: Hypertension ICD-10 I10 Resting Blood Pressure:: 136/62 [place] [employer] Hypertension Guidelines: [place] [employer] Hypertension Guidelines. Normal BP Less than 120/80. Elevated BP 120/80. Hypertension Stage 1: BP 130-139/80-89. Hypertesnion Stage 2: BP 140 or higher/90 or higher. Hypertension Crisis: BP higher than 180/120 Peak Exercise Blood Pressure:: 164/80 Outcomes/Goals: Able to verbalize/achieve optimal blood pressure <130/80, Incorporates diet changes & exercise for blood pressure control by DC, Other additional outcomes/goals 30 day Reassessments:: Progressing - Tobacco Cessation Referral Smoking Cessation Referral:: No Individual Education/Counseling:: No Education Schedule Given:: Yes Medical - Final Assessment Psychosocial - Initial Assess Psychosocial - 30-Day Assess Psychosocial - 60-Day Assess Psychosocial - 90-Day Assess - VIsit Date of Eval: 07/12/21 Session #:: 19 - Outcomes/Goals: See list Psychosocial Outcomes/Goals:: ID's personal stressors & 2 strategies to manage stress by discharge, Other Additional outcome/goals: - Intervention/Plan: See List Interventions/Plan:: Assess stressors,coping strategies & signs of derpression on admission, Instruct/assist pt to develop coping & personal stress Mgt strategies, Refer to Behavioral Health if appropriate, Refer to Physician if appropriate, Instruct patient to recognize signs & symptoms of depression, Instruct patient to recog, Other additional plan/intervention - 30-day Reassessments: 30 day Reassessments:: Progressing Psychosocial - Final Assessmen Patient Health Questionnaire 90-Day Re-eval Assessment 1. Little interest or pleasure in doing things: Not at all 2. Feeling down, depressed, or hopeless: Not at all 3. Trouble falling or staying asleep, or sleeping too much: Not at all 4. Feeling tired or having little energy: Not at all 5. Poor appetite or overeating: Not at all 6. Feeling bad about yourself -- or that you are a failure or have let yourself or your family down: Not at all 7. Trouble concentrating on things, such as reading the newspaper or watching television: Not at all 8. Moving or speaking so slowly that other people could have noticed. Or the opposite - being so fidgety or restless that you have been moving around a lot more than usual: Not at all 9. Thoughts that you would be better off , or of hurting yourself in some way: Not at all How difficult have these problems made it for you to do your work, take care of things at home, or get along with other people?: Not difficult at all Total Score: 0 Self-Efficacy 90-Day Re-eval Assessment We would like to know how confident you are in doing certain activities. Please select your confidence level for:: Select your confidence level for the following using the scale 1-10 where 1 is not at all confident and 10 is totally confident. Your score is the average of all 6 responses. Fatigue: How confident are you that you can keep the fatigue caused by your disease from interfering with the things you want to do? Select Number: 6 Physical Discomfort or Pain: How confident are you that you can keep the physical discomfort or pain of your disease from interfering with the things you want to do? Select Number: 7 Emotional Distress: How confident are you that you can keep the emotional distress caused by your disease from interfering with the things you want to do? Select Number: 8 Other Symptoms or Health Problems: How confident are you that you can keep other symptoms or health problems from interfering with the things you want to do? Select Number: 7 Different Tasks and Activities: How confident are you that you can do the different tasks and activities needed to manage your health condition so as to reduce your need to see a doctor? Select Number: 7 Medication: How confident are you that you can do things other than just taking medication to reduce how much your illness affects your everyday life? Select Number: 9 Total Score:: 7 Nutrition Survey
[2021-07-12 10:50] VITALS: BP 136/62; BP 164/80; BMI 28.0
== END 2021-07-25 23:59 | disposition home or self-care (01) ==
LOC: CR 08:26
PROVIDERS: PCP Physician Assistant
DX: Z95.1 Presence of aortocoronary bypass graft (principal)
CPT/HCPCS: 93798

== ENCOUNTER 2021-06-28 07:55 | Outpatient (CLI) | payer MEDICARE, OTHER, SELFPAY ==
[2021-06-17 11:25] VITALS: BMI 27.8
--- NOTE | 2021-06-28 08:24 | CT_ITS ---
STUDY: CTA NECK WITH CONTRAST REASON FOR EXAM: Male, 86 years old. Carotid stenosis RADIATION DOSAGE (If Supplied By Facility): CTDIvol = ( 21.73 ) mGy, DLP = ( 494.36 ) mGycm TECHNIQUE: CT angiography with multi-detector data acquisition was performed from the aortic arch to the skull base following intravenous administration of IV 100mL Isovue-300. MIP images were reconstructed from the axial data set. Post-processing of the angiographic images was performed, with multiplanar reformation and 3D reconstruction. Individualized dose optimization techniques were used for this CT. COMPARISON: None. FINDINGS: Prior CABG. AORTIC ARCH: There is atherosclerotic calcific plaque formation of the aortic arch and great vessels arising from the aortic arch, without a hemodynamically significant stenosis. There is a normal origin of the brachiocephalic, left common carotid, and left subclavian arteries. Mild atherosclerotic calcification at the origin of the left subclavian artery. RIGHT CAROTID ARTERIES: There is moderate atherosclerotic plaque formation of the common carotid artery, but without a hemodynamically significant stenosis. Normal right common carotid bulb. There is severe atherosclerotic plaque formation of the origin of the right internal carotid artery with a near complete occlusion. Normal visualized cervical portion of the right internal carotid artery. There is severe atherosclerotic plaque formation of the origin of the right external carotid artery with a near complete occlusion. LEFT CAROTID ARTERIES: Normal left common carotid artery (CCA). Normal left common carotid bulb. There is extensive atherosclerotic plaque formation of the origin of the left internal carotid artery with an estimated stenosis of greater than 70%. Normal visualized cervical portion of the left internal carotid artery. Normal origin of the left external carotid artery (ECA). VERTEBRAL ARTERIES: There is enhancement within the bilateral vertebral arteries with a small left vertebral artery, and a dominant right vertebral artery. CT/CTA Neck W/WO Contrast IMPRESSION: Marked degree of atherosclerotic plaque formation at the origin of the right internal carotid artery causing near occlusion. Near occlusion at the origin of the right external carotid artery. Greater than 70% narrowing at the origin of the left internal carotid artery. Small left vertebral artery. Electronically Signed: Eduardo Dozier MD at 9:09 EST ,
[2021-06-28 08:26] LABS: CREATININE FINGERSTICK < 0.6 mg/dL (0.70-1.30); EGFR FINGERSTICK > 60.0000 mL/min (>60)
== END 2021-06-28 23:59 | disposition home or self-care (01) ==
LOC: CT 07:58
PROVIDERS: PCP Physician Assistant; Referring Provider Surgery; Visit Provider Surgery
DX: I65.23 Occlusion and stenosis of bilateral carotid arteries (principal)
CPT/HCPCS: 70498; Q9967

== ENCOUNTER 2024-01-28 07:41 | Inpatient (IN) | payer MEDICARE, OTHER, SELFPAY ==
[2024-01-28] VITALS (19 sets, daily range): BP systolic 108–129; BP diastolic 51–66; PULSE 48–56; RESP 13–90; TEMP 36.2–37.2; O2SAT 88–98; BMI 24.8; BMI 24.9
--- NOTE | 2024-01-28 07:56 | EDS_ITS ---
HPI History of Present Illness Chief Complaint: Shortness of Breath Informant: patient and spouse/S.O. Onset/Context/Timing Onset: Today Context: gradual Timing: Continuous Quality: Positive for Wheezing Worsened by: Nothing Relieved by: Oxygen Associated Symptoms cough and rhinorrhea; Negative for post nasal drip, ear pain, fever, sore throat, chills, sweats, clear sputum, white sputum, yellow sputum or green sputum Chest Pain: Positive for None Narrative Narrative: Patient presents with shortness of breath that became worse today. Patient states it is gradually gotten worse. Patient states that has been constant today. Patient states he feels like he is wheezing. Patient states oxygen seems to help with his breathing. Patient does admit to a cough but denies any sputum production. Patient admits to some rhinorrhea but denies any sore throat or ear pain. Patient denies any fevers or chills. Patient denies any chest pain. Patient denies any nausea or vomiting. 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 PE Risk Factors: Positive for Cancer and Recent immobilization; Negative for OCP + Smoking + > 35, Prior DVT or PE, Recent surgery or Recent travel [facility] Medical History Atherosclerotic heart disease of [place] coronary artery without angina pectoris Acute non-ST elevation myocardial infarction (NSTEMI) GERD (gastroesophageal reflux disease) Non-smoker Chest pain Hypertension Unstable angina Carotid stenosis, bilateral Edema Dyspnea on exertion Carotid artery disease BPH (benign prostatic hyperplasia) Stricture of esophagus Hypothyroidism Hyperlipidemia History of cancer tonsil (1983) Arteriosclerotic cardiovascular disease Home Medications ?Medication ?Instructions ?Recorded ?Last Taken ?Type clopidogrel 75 mg tablet 75 mg PO DAILY 07/31/16 Unknown History vit C 250 mg-vit E 90 mg-zinc 40 1 ea PO BID 07/31/16 Unknown History mg-copper 1 jg-sngmas-kyxjzn capsule ezetimibe 10 mg tablet 10 mg PO QHS 08/01/18 Unknown History aspirin 81 mg tablet,delayed 81 mg PO DAILY 05/30/19 Unknown History release (Adult Aspirin Regimen) cholecalciferol (vitamin D3) 125 2,000 unit PO DAILY 05/30/19 Unknown History mcg (5,000 unit) disintegrating tablet levothyroxine 50 mcg tablet 50 mcg PO DAILY 05/30/19 Unknown History lactobacillus combination no.9 4 4,000 mmu cells PO DAILY 05/31/19 Unknown History billion cell capsule (Adult 50 Plus Probiotic) multivitamin 1 tab PO DAILY 05/31/19 Unknown History carvedilol 3.125 mg tablet (Coreg) 3.125 mg PO BID #60 tabs 07/05/19 Unknown Rx acetaminophen 500 mg tablet 1,000 mg PO Q6H PRN Pain 03/07/21 Unknown History furosemide 20 mg tablet 20 mg PO DAILY 03/07/21 Unknown History melatonin 3 mg tablet 3 mg PO HS PRN Sleep 03/07/21 Unknown History polyethylene glycol 3350 17 17 g PO DAILY 03/07/21 Unknown History gram/dose oral powder (Miralax) isosorbide mononitrate 30 mg 30 mg PO DAILY 07/01/21 Unknown History tablet,extended release 24 hr pravastatin 20 mg tablet 40 mg PO DAILY 07/01/21 Unknown History carbidopa 25 mg-levodopa 100 mg tab PO 01/28/24 Unknown History tablet tamsulosin 0.4 mg capsule 0.4 mg PO DAILY 01/28/24 Unknown History Allergy/AdvReac Type Severity Reaction Status Date / Time Iodinated Contrast Media Allergy Severe Anaphylaxis Verified 07/01/21 08:18 shellfish derived Allergy Anaphylaxis Verified 07/01/21 08:18 Covaihm-UWP-TsM Reductase AdvReac Intermediate intolerance; Verified 07/01/21 08:18 Inhibitor (Zyvqwmf-Wsp-Dhz myalgias Reductase Inhibitor) Family History Brother Brain aneurysm Other CAD (coronary artery disease) Surgical History History of coronary artery bypass surgery (~03/01/21) History of colonoscopy History of cataract extraction History of tonsillectomy history of left clavicle fracture Stented coronary artery History of left heart catheterization (02/25/21) Social History Smoking Status: Never smoker ROS ROS ED Constitutional Constitutional ED: Denies chills or fever(s) Eyes Eyes: Denies blurry vision or change in vision ENT ENT ED: Denies rhinorrhea or sore throat Cardiovascular Cardiovascular: Denies chest pain or palpitations Respiratory/Chest Respiratory/Chest: Reports cough and dyspnea Gastrointestinal Gastrointestinal: Denies nausea or vomiting Genitourinary Genitourinary ED: Denies dysuria or hematuria Musculoskeletal Musculoskeletal: Denies back pain or neck pain Integumentary Denies abscess or rash Neurologic Neurologic: Denies headache(s) or weakness Allergic/Immunologic Allergic/Immunologic ED: Denies mouth swelling or urticaria EXAM Physical Exam Const Vital Signs: 01/28/24 07:43 01/28/24 07:46 01/28/24 07:47 Temperature 98.6 F 98.6 F Temperature Source Oral Oral Pulse Rate 55 L 55 L Respiratory Rate 90 H 24 H Respiratory Effort Labored Respiratory Pattern Tachypnea Blood Pressure 124/66 H 124/66 H Blood Pressure Mean 85 85 Pulse Ox 89 92 Oxygen Delivery Method Room Air Nasal Cannula Oxygen Flow Rate (L/min) 01/28/24 08:35 01/28/24 08:39 01/28/24 08:44 Temperature Temperature Source Pulse Rate 56 L 50 L Respiratory Rate 16 18 Respiratory Effort Respiratory Pattern Blood Pressure 114/55 L Blood Pressure Mean 74 Pulse Ox 91 92 Oxygen Delivery Method Nasal Cannula Nasal Cannula Oxygen Flow Rate (L/min) 01/28/24 08:51 01/28/24 09:00 01/28/24 10:00 Temperature Temperature Source Pulse Rate 55 L 55 L Respiratory Rate 14 19 H Respiratory Effort Respiratory Pattern Blood Pressure 117/51 L 120/56 L Blood Pressure Mean 73 77 Pulse Ox 92 93 91 Oxygen Delivery Method Nasal Cannula Nasal Cannula Oxygen Flow Rate (L/min) 1 01/28/24 11:11 01/28/24 12:00 Temperature Temperature Source Pulse Rate 50 L Respiratory Rate 18 Respiratory Effort Respiratory Pattern Blood Pressure 114/53 L 121/54 H Blood Pressure Mean 73 76 Pulse Ox 92 Oxygen Delivery Method Nasal Cannula Oxygen Flow Rate (L/min) 2 Positive well nourished and well developed General Appearance ED: well developed and NAD HEENT Reports moist mucous membranes HEENT Narrative: Oropharynx is clear. Airway is patent. Eyes PERRL and EOMs intact bilaterally Neck supple and no JVD Resp normal respiratory effort Auscultation: wheezes expiratory wheezes and throughout Cardio regular rate and regular rhythm GI non-tender and non-distended Palpation: soft Neuro oriented x3, CN's II-XII intact bilaterally and no sensory deficits noted [place] Coma Scale: document GCS findings Spontaneous Obeys Commands Oriented 15 Sensorium / Orientation: alert Motor Exam: strength 5/5 throughout Psych mental status grossly normal MDM MDM MDM Narrative Medical decision making narrative: Differential diagnosis includes pneumonia, COPD exacerbation, bronchitis, viral infection, cardiac dysrhythmia, cardiac ischemia, and pulmonary embolism. EKG will be obtained to assess for cardiac dysrhythmia and cardiac ischemia. Chest x-ray will be obtained to assess for pneumonia and pneumothorax. CBC will be obtained to assess for leukocytosis and anemia. Basic metabolic profile will be obtained to assess for electrolyte abnormality and renal function. High- sensitivity troponin will be obtained to assess for cardiac ischemia. D-dimer will be obtained to assess for pulmonary embolism. Lab Data Attestation: I reviewed the patient's lab results. Lab results narrative: CBC was reviewed and was within normal limits. Basic metabolic profile was reviewed and was essentially within normal limits. High-sensitivity troponin was reviewed and was normal at 11. D-dimer was reviewed and was elevated at 5.45. 2-hour repeat high-sensitivity troponin was reviewed and was normal at 10. Labs: Laboratory Results - last 24 hr 01/28/24 01/28/24 01/28/24 07:55 09:10 10:41 WBC 5.2 RBC 4.28 L Hgb 13.1 Hct 38.9 L MCV 90.9 MCH 30.6 MCHC 33.7 RDW Std Deviation 53.0 H RDW Coeff of Ed 16.1 H Plt Count 161 MPV 12.4 H Immature Gran % (Auto) 0.800 Neut % (Auto) 72.2 H Lymph % (Auto) 13.0 L [place] % (Auto) 12.8 H Eos % (Auto) 1.0 Baso % (Auto) 0.2 Absolute Neuts (auto) 3.7 Absolute Lymphs (auto) 0.67 L Nucleated RBC % 0 D-Dimer Quant (PE/DVT) Cancelled 5.45 H* Sodium 139 Potassium 4.3 Chloride 105 Carbon Dioxide 31.0 Anion Gap 3 L BUN 23 H Creatinine 0.71 Estim Creat Clear Calc 58.70 Est GFR (MDRD) Af Amer 136 Est GFR (MDRD) Non-Af 112 BUN/Creatinine Ratio 32.6 H Glucose 96 Calcium 8.3 L Troponin I High Sens 11 10 Radiography Chest X-Ray - ED: 2 View, Read by ED Physician, Read by Radiologist and Left Infiltrate (Versus mass) CTA PE Study: No Evidence of Dissection and - (Subsegmental pulmonary emboli in the right lung, no right heart strain. Left lower lobe pneumonia.) Diagnostic Testing: Clinical Impression(s) from Imaging Studies Chest X-Ray 01/28/24 09:11 IMPRESSION: Possible left lower lobe pneumonia or mass. Correlation with CT the chest with contrast is recommended. Electronically Signed: Lazaro Johnston MD at 9:23 EDT Reading Location ID and State: [id number] / [facility] , Service support , Chest CTA 01/28/24 10:26 IMPRESSION: Positive for subsegmental pulmonary emboli in the right lung. No right heart strain. Small left pleural effusion. Bibasilar atelectasis. Electronically Signed: Lazaro Johnston MD at 12:28 EDT Reading Location ID and State: [id number] / [facility] , Service support , ADDENDUM: 01/28/24 1244 IMPRESSION: Positive for subsegmental pulmonary emboli in the right lung. No right heart strain. Small left pleural effusion. Bibasilar atelectasis. N.B. : The above Results were Read Back by Lazaro Johnston MD to Luis Morocho MD, and understanding confirmed on 01/28/2024 12:37:59 (ET). Electronically Signed: Lazaro Johnston MD at 12:28 EDT Reading Location ID and State: [id number] / [facility] , Service support , EKG Initial EKG: Attestation: I personally reviewed and interpreted this EKG as follows: Interpretation: Sinus Bradycardia (54) Comments: EKG was obtained. On my independent interpretation, showed sinus bradycardia with a rate of 54. CO interval was 104 ms. QRS interval was 90 ms. QTc interval was 392 ms. There is normal axis. There are no acute ST or T wave changes noted. Prior EKG tracings: available for review Prior: Changed (Compared to EKG dated 04/16/2021, the T wave inversions in the precordial leads have now resolved.) Treatment and Re-Evaluation :: Patient was given a DuoNeb aerosol here. Patient elevated D-dimer, CT of the chest was obtained.. Patient was medicated with Solu-Medrol and Benadryl prior to chest CT because of his shellfish allergy. Patient was started on Rocephin and Zithromax. Patient was started on Eliquis. Case was discussed with the hospitalist. He will admit the patient to his service. Spouse understands and is agreeable with the plan. All questions were answered. Discharge Plan Triage Chief Complaint: Shortness of Breath ED Provider: Luis Morocho Dx/Rx/DC Orders Clinical Impression: Pneumonia, Pulmonary embolism, Hypoxia Prescriptions: No Action levothyroxine 50 mcg tablet 50 mcg PO DAILY cholecalciferol (vitamin D3) 5,000 unit tablet,disintegrating 2,000 unit PO DAILY aspirin [Adult Aspirin Regimen] 81 mg tablet,delayed release (DR/EC) 81 mg PO DAILY Adult 50 Plus Probiotic 4 billion cell capsule 4,000 mmu cells PO DAILY Rx Instructions: administer with a meal multivitamin Tablet 1 tab PO DAILY isosorbide mononitrate 30 mg tablet extended release 24 hr 30 mg PO DAILY clopidogrel 75 MG tablet 75 mg PO DAILY Patient Comments: TWICE A WEEK vit C,P-Lv-ifytg-lutein-zeaxan 1 EACH capsule 1 ea PO BID ezetimibe 10 MG tablet 10 mg PO QHS Patient Comments: TAKE 1 TABLET BY MOUTH EVERY DAY pravastatin 20 mg tablet 40 mg PO DAILY tamsulosin 0.4 mg capsule 0.4 mg PO DAILY carbidopa-levodopa 25-100 mg tablet PO carvedilol [Coreg] 3.125 mg tablet 3.125 mg PO BID Qty: 60 11RF Rx Instructions: must administer with a meal/food acetaminophen 500 mg tablet 1,000 mg PO Q6H PRN (Reason: Pain) melatonin 3 mg tablet 3 mg PO HS PRN (Reason: Sleep) polyethylene glycol 3350 [Miralax] 17 gram/dose powder 17 g PO DAILY furosemide 20 mg tablet 20 mg PO DAILY Primary Care Provider: Nisa Mejia Referrals: Nisa Mejia, PA [Primary Care Provider] - Print Language: Dutch Disposition Disposition: Acute Care Hospital [facility]
--- NOTE | 2024-01-28 08:28 | EKG12_ITS ---
Test Reason : SOB Blood Pressure : / mmHG Vent. Rate : 054 BPM Atrial Rate : 054 BPM P-R Int : 104 ms QRS Dur : 090 ms QT Int : 414 ms P-R-T Axes : 028 039 024 degrees QTc Int : 392 ms Sinus bradycardia with short ND Otherwise normal ECG Confirmed by JOVANI HICKEY, NEO ([id number]), digital editor BRENNA OLEA ([id number]) on 01/29/2024 2:12:47 PM Referred By: SAM Confirmed By:NEO HAHN MD
[2024-01-28] MEDS: Ipratropium/Albuterol Sulfate 3 ML AMPUL.NEB INHALATION ×2 (08:36→19:25)
[2024-01-28] MEDS: 0.9% Normal Saline (1000mL) 1,000 ML 1000 ML IV (08:37)
[2024-01-28 08:43] LABS: Absolute Lymphocyte Count 0.67 X10^3/uL (0.83-4.51); Absolute Neutrophil Count 3.7 X10^3/uL (2.0-7.7); Basophil# 0.01 X10^3/uL; Basophil% 0.2 % (0-1); Eosinophil# 0.05 X10^3/uL; Hematocrit 38.9 % (40-54); Hemoglobin 13.1 g/dL (13.0-16.5); Lymphocyte # 0.67 X10^3/ul (0.83-4.51); Mean Corp Hgb Conc 33.7 g/dL (32-36); Mean Corpuscular Hgb 30.6 pg (27.0-32.0); Mean Corpuscular Volume 90.9 fL (80-94); Mean Platelet Vol. 12.4 fl (6.2-12.0); Monocyte# 0.66 X10^3/uL; Monocyte% 12.8 % (0-10); NRBC Flagged by Analyzer 0 % (0-5); Neutrophil # 3.72 X10^3/uL (2.7-7.7); Neutrophil % 72.2 % (47-70); Platelet Count 161 K/mm3 (150-450); RBC Distribution Width CV 16.1 % (11.6-14.6); Red Blood Count 4.28 M/mm3 (4.6-6.2); White Blood Count 5.2 K/mm3 (4.4-11.0)
[2024-01-28 08:57] LABS: Anion Gap 3 (5-15); BUN 23 mg/dL (7-18); BUN/Creat Ratio 32.6 RATIO (10-20); Calcium,Total 8.3 mg/dL (8.5-10.1); Chloride 105 mmol/L (98-107); Creatinine, Serum 0.71 mg/dL (0.70-1.30); EST Glomerular Filtration Rate 112 mL/min (>60); Est Glom Filt Rate - Afr Amer 136 mL/min (>60); Glucose 96 mg/dL (74-106); Potassium 4.3 mmol/L (3.5-5.1); Sodium Level 139 mmol/L (136-145); Troponin-I HS (w/2H Reflex) 11 pg/mL (3.0-78.0)
--- NOTE | 2024-01-28 09:11 | RAD_ITS ---
STUDY: X-RAY CHEST REASON FOR EXAM: Male, 88 years old. Dyspnea TECHNIQUE: PA and lateral views of the chest. COMPARISON: 02/24/2021 FINDINGS: Status post median sternotomy. Opacification of posterior aspect of the lungs best seen on the lateral view, likely in the left lung and correlation with CT the chest with contrast is recommended. There is no demonstrated pleural abnormality. Normal size heart. Normal mediastinum and martha. Normal visualized pulmonary arteries. Normal visualized aortic arch and descending thoracic aorta. Normal visualized thoracic spine. Normal visualized ribs, clavicles, and shoulders. There is no demonstrated abnormality of the visualized soft tissue structures of the upper abdomen. RAD/Chest PA and Lateral IMPRESSION: Possible left lower lobe pneumonia or mass. Correlation with CT the chest with contrast is recommended. Electronically Signed: Lazaro Johnston MD at 9:23 EDT ,
[2024-01-28 10:23] LABS: D-Dimer Quantitative (DVT/PE) 5.45 FEU/ug/m (0.27-0.49)
--- NOTE | 2024-01-28 10:26 | CT_ITS ---
We are attempting to reach an attending provider to discuss findings. An addendum with communication details will be sent when the communication is complete. STUDY: CTA CHEST REASON FOR EXAM: Male, 88 years old. Elevated D-dimer RADIATION DOSAGE (If Supplied By Facility): CTDIvol = ( 20.71 ) mGy, DLP = ( 412.73 ) mGycm TECHNIQUE: The examination was performed with the intravenous administration of IV 100mL Isovue-370. Post-processing of the angiographic images was performed, with multiplanar reformation and 3D reconstruction. Individualized dose optimization techniques were used for this CT. COMPARISON: 08/01/2018 FINDINGS: Status post median sternotomy. Normal enhancement of the main pulmonary artery and right and left pulmonary arteries. Normal enhancement of the bilateral peripheral pulmonary arteries. Multiple tubular filling defects within subsegmental branches of the ascending and descending right pulmonary arteries consistent with subsegmental pulmonary emboli. Normal thoracic aorta and visualized great vessels. There is no demonstrated aortic dissection. There is cardiomegaly. No right ventricular dilatation to suggest right heart strain. Normal mediastinum. Normal hilar regions. Normal visualized trachea and bronchi. The lungs are well expanded. Mild bilateral apical scarring. Some bibasilar atelectasis. Small left pleural effusion. Normal chest wall structures. Mild dextroscoliosis of the lower thoracic spine with degenerative disc disease. 2 cm mass of decreased attenuation of the tail of the pancreas and correlation with pancreas protocol CT is recommended. CT/CTA Chest W/WO Contrast IMPRESSION: Positive for subsegmental pulmonary emboli in the right lung. No right heart strain. Small left pleural effusion. Bibasilar atelectasis. Electronically Signed: Lazaro Johnston MD at 12:28 EDT ,
[2024-01-28] MEDS: DiphenhydrAMINE 50 MG/ML Syringe 25 MG IV (10:28)
[2024-01-28] MEDS: MethylPREDNISolone 125 MG/2 ML Vial 80 MG IV (10:28)
[2024-01-28 10:36] LABS: Reflex Troponin-HS? (from REC) Y
[2024-01-28 11:08] LABS: Troponin-I HS 10 pg/mL (3.0-78.0)
--- NOTE | 2024-01-28 13:24 | PCM.HP.STD ---
HPI - General General Date of Admission: 01/28/24 Date of Service: 01/28/24 Chief Complaint: Worsening shortness of breath HPI Narrative TIEN FULLER, is a 88 M who presented to [facility] ED on 01/28/2024 with worsening shortness of breath. Patient was recently hospitalized at [facility] from 01/13-01/19, reviewed discharge summary in [facility]. He presented there with worsening weakness. Has history of Parkinson's disease with baseline debility but had worsening p.o. intake and weakness that led to that hospitalization. He was found to have swallowing difficulty and had an EGD that showed a 2 cm nonobstructing mass in the esophagus. Biopsy showed squamous cell carcinoma. Not clear from discharge summary but does not appear he had metastatic disease diagnosed at that time. He was placed on for liquid diet and tolerated this well. Given his weakness, he was discharged to [facility] for rehab on 01/19. He notably also had COVID diagnosed on that admission and completed 10 days of steroid therapy. He came to the ED from SNF today for worsening shortness of breath. Was found to be hypoxic to the mid 80s, does not wear oxygen at baseline. CTA chest showed subsegmental pulmonary emboli in the right lung with no right heart strain and small left pleural effusion. There notably was a 2 cm mass of decreased continuation noted at the tail the pancreas as well. Given this new PE with hypoxia, hospitalist was contacted for admission. I saw the patient at bedside in the ED, was present. Patient was moderately fatigued appearing and laying back in bed with his eyes closed for the majority of our encounter. He did answer questions with short appropriate responses. He denied any chest pain or shortness of breath currently. Denied any fevers or chills. Did report having a cough but with no significant sputum production. noted that patient looks slightly more tired than his normal but otherwise is about at his baseline. Will be admitted for further management. [facility] Medical History Atherosclerotic heart disease of [place] coronary artery without angina pectoris Acute non-ST elevation myocardial infarction (NSTEMI) GERD (gastroesophageal reflux disease) Non-smoker Chest pain Hypertension Unstable angina Carotid stenosis, bilateral Edema Dyspnea on exertion Carotid artery disease BPH (benign prostatic hyperplasia) Stricture of esophagus Hypothyroidism Hyperlipidemia History of cancer tonsil (1983) Arteriosclerotic cardiovascular disease Home Medications ?Medication ?Instructions ?Recorded ?Last Taken ?Type clopidogrel 75 mg tablet 75 mg PO DAILY 07/31/16 Unknown History vit C 250 mg-vit E 90 mg-zinc 40 1 ea PO BID 07/31/16 Unknown History mg-copper 1 [id number]-ulbbpy capsule ezetimibe 10 mg tablet 10 mg PO QHS 08/01/18 Unknown History aspirin 81 mg tablet,delayed 81 mg PO DAILY 05/30/19 Unknown History release (Adult Aspirin Regimen) cholecalciferol (vitamin D3) 125 2,000 unit PO DAILY 05/30/19 Unknown History mcg (5,000 unit) disintegrating tablet levothyroxine 50 mcg tablet 50 mcg PO DAILY 05/30/19 Unknown History lactobacillus combination no.9 4 4,000 mmu cells PO DAILY 05/31/19 Unknown History billion cell capsule (Adult 50 Plus Probiotic) multivitamin 1 tab PO DAILY 05/31/19 Unknown History carvedilol 3.125 mg tablet (Coreg) 3.125 mg PO BID #60 tabs 07/05/19 Unknown Rx acetaminophen 500 mg tablet 1,000 mg PO Q6H PRN Pain 03/07/21 Unknown History furosemide 20 mg tablet 20 mg PO DAILY fluid 03/07/21 Unknown History melatonin 3 mg tablet 3 mg PO HS PRN Sleep 03/07/21 Unknown History polyethylene glycol 3350 17 17 g PO DAILY PRN BMs 03/07/21 Unknown History gram/dose oral powder (Miralax) isosorbide mononitrate 30 mg 30 mg PO DAILY 07/01/21 Unknown History tablet,extended release 24 hr pravastatin 20 mg tablet 40 mg PO DAILY 07/01/21 Unknown History carbidopa 25 mg-levodopa 100 mg 2 tab PO TID parkinsons 01/28/24 Unknown History tablet tamsulosin 0.4 mg capsule 0.4 mg PO DAILY 01/28/24 Unknown History Allergy/AdvReac Type Severity Reaction Status Date / Time Iodinated Contrast Media Allergy Severe Anaphylaxis Verified 07/01/21 08:18 shellfish derived Allergy Anaphylaxis Verified 07/01/21 08:18 Bsdlfys-FWD-KaF Reductase AdvReac Intermediate intolerance; Verified 07/01/21 08:18 Inhibitor (Clcupgr-Lpj-Kdh myalgias Reductase Inhibitor) Family History Brother Brain aneurysm Other CAD (coronary artery disease) Surgical History History of coronary artery bypass surgery (~03/01/21) History of colonoscopy History of cataract extraction History of tonsillectomy history of left clavicle fracture Stented coronary artery History of left heart catheterization (02/25/21) Social History Smoking Status: Never smoker ROS Constitutional Constitutional: Reports fatigue and weakness; Denies chills or fever(s) ENT HEENT: Denies nasal congestion, nasal discharge or sore throat Cardiovascular Cardiovascular: Denies chest pain or edema Respiratory/Chest Respiratory/Chest: Reports cough, shortness of breath with exertion and wheezing; Denies productive cough or shortness of breath at rest Gastrointestinal Gastrointestinal: Denies abdominal pain Musculoskeletal Musculoskeletal: Denies arthralgias or myalgias Vital Signs Vital Signs Vital Signs: 01/28/24 07:43 01/28/24 07:46 01/28/24 07:47 Temperature 98.6 F 98.6 F Temperature Source Oral Oral Pulse Rate 55 L 55 L Respiratory Rate 90 H 24 H Respiratory Effort Labored Respiratory Pattern Tachypnea Blood Pressure 124/66 H 124/66 H Blood Pressure Mean 85 85 Pulse Ox 89 92 Oxygen Delivery Method Room Air Nasal Cannula Oxygen Flow Rate (L/min) 01/28/24 08:35 01/28/24 08:39 01/28/24 08:44 Temperature Temperature Source Pulse Rate 56 L 50 L Respiratory Rate 16 18 Respiratory Effort Respiratory Pattern Blood Pressure 114/55 L Blood Pressure Mean 74 Pulse Ox 91 92 Oxygen Delivery Method Nasal Cannula Nasal Cannula Oxygen Flow Rate (L/min) 01/28/24 08:51 01/28/24 09:00 01/28/24 10:00 Temperature Temperature Source Pulse Rate 55 L 55 L Respiratory Rate 14 19 H Respiratory Effort Respiratory Pattern Blood Pressure 117/51 L 120/56 L Blood Pressure Mean 73 77 Pulse Ox 92 93 91 Oxygen Delivery Method Nasal Cannula Nasal Cannula Oxygen Flow Rate (L/min) 1 01/28/24 11:11 01/28/24 12:00 Temperature Temperature Source Pulse Rate 50 L Respiratory Rate 18 Respiratory Effort Respiratory Pattern Blood Pressure 114/53 L 121/54 H Blood Pressure Mean 73 76 Pulse Ox 92 Oxygen Delivery Method Nasal Cannula Oxygen Flow Rate (L/min) 2 Weight Weight: 69.8 kg Body Mass Index (BMI) 24.8 Physical Exam Const alert, no apparent distress and average body habitus Constitutional Narrative: Elderly male, moderately fatigued appearing, somewhat chronically ill-appearing, laying back in bed comfortably, answering questions with short appropriate responses, in no acute distress. General Appearance: cooperative and comfortable HEENT normocephalic, head/scalp atraumatic, hearing grossly normal bilaterally, nasal mucous membranes and turbinates normal and moist oral mucous membranes Eyes PERRL, EOMs intact bilaterally and conjunctivae normal Neck full ROM Chest inspection of chest normal Resp normal respiratory effort and no use of accessory muscles Resp Narrative: Breathing comfortably on 3 L nasal cannula at rest. Mildly decreased breath sounds bilaterally throughout, no wheezing or crackles noted. Cardio no murmurs and peripheral pulses 2+ throughout Cardio Narrative: Bradycardic, regular rhythm. GI normal to inspection, nondistended, normoactive bowel sounds, soft to palpation, non-tender and non-distended Back/Spine normal ROM Extremity normal to inspection and no pedal edema Skin no rashes or lesions noted Neuro moves all extremities and no focal motor deficits Psych Psych Narrative: Flat affect. Results Lab / Micro Data 01/28/24 07:55 01/28/24 07:55 Labs: Laboratory Results - last 24 hr 01/28/24 07:55: WBC 5.2, RBC 4.28 L, Hgb 13.1, Hct 38.9 L, MCV 90.9, MCH 30.6, MCHC 33.7, RDW Std Deviation 53.0 H, RDW Coeff of Ed 16.1 H, Plt Count 161, MPV 12.4 H, Immature Gran % (Auto) 0.800, Neut % (Auto) 72.2 H, Lymph % (Auto) 13.0 L, [place] % (Auto) 12.8 H, Eos % (Auto) 1.0, Baso % (Auto) 0.2, Absolute Neuts (auto) 3.7, Absolute Lymphs (auto) 0.67 L, Nucleated RBC % 0, D-Dimer Quant (PE/DVT) Cancelled, Sodium 139, Potassium 4.3, Chloride 105, Carbon Dioxide 31.0, Anion Gap 3 L, BUN 23 H, Creatinine 0.71, Estim Creat Clear Calc 58.70, Est GFR (MDRD) Af Amer 136, Est GFR (MDRD) Non-Af 112, BUN/Creatinine Ratio 32.6 H, Glucose 96, Calcium 8.3 L, Troponin I High Sens 11 01/28/24 09:10: D-Dimer Quant (PE/DVT) 5.45 H* 01/28/24 10:41: Troponin I High Sens 10 Imaging Radiology Impression Chest X-Ray 01/28/24 09:11 IMPRESSION: Possible left lower lobe pneumonia or mass. Correlation with CT the chest with contrast is recommended. Electronically Signed: Lazaro Johnston MD at 9:23 EDT Reading Location ID and State: [id number] / [employer] Tel , Service support , Chest CTA 01/28/24 10:26 IMPRESSION: Positive for subsegmental pulmonary emboli in the right lung. No right heart strain. Small left pleural effusion. Bibasilar atelectasis. Electronically Signed: Lazaro Johnston MD at 12:28 EDT Reading Location ID and State: [id number] / [employer] Tel , Service support , ADDENDUM: 01/28/24 1244 IMPRESSION: Positive for subsegmental pulmonary emboli in the right lung. No right heart strain. Small left pleural effusion. Bibasilar atelectasis. N.B. : The above Results were Read Back by Lazaro Johnston MD to Luis Morocho MD, and understanding confirmed on 01/28/2024 12:37:59 (ET). Electronically Signed: Lazaro Johnston MD at 12:28 EDT Reading Location ID and State: [id number] / [employer] Tel , Service support , Assessment & Plan Assessment/Plan (1) Pulmonary embolism: (2) Hypoxia: (3) Esophageal cancer: (4) Dysphagia: PLAN: Plan Patient is an 88-year-old male who presented [facility] ED on 01/28/2024 with worsening shortness of breath. 1. Acute PE with hypoxia, low risk ? Admit under inpatient status to PCU. CTA chest showed subsegmental pulmonary emboli in the right lung with no right heart strain and small left pleural effusion. Hypoxic requiring 3 L nasal cannula on admit, not on home oxygen. Will treat with Eliquis with PE/DVT loading. Echo ordered. Wean supplemental oxygen as able. 2. 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 Speech therapy consulted. Cancer was recently diagnosed during hospitalization at [facility]. 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 Has been on full liquid diet since then, will continue this diet here. Appreciate speech therapy recommendations. Unclear if further imaging workup to assess for metastatic disease was done at outside hospital. CTA chest here did show a 2 cm mass of decreased attenuation at the tail of the pancreas. Radiology recommendation was for correlation with pancreas protocol CT. Will hold on ordering this for now, can consider ordering while here versus further outpatient workup. Has initial outpatient appointment with Dr. Bai scheduled for Wednesday 01/31; patient and aware that this will likely need to be rescheduled. 3. Acute on chronic debility ? PT/OT/case management consulted. Patient presented from [facility] but was not happy with the care there, would prefer a different SNF on discharge. 4. Recent COVID infection ? COVID-positive on 01/13 at outside hospital. Completed 10-day course of steroids. Mistakenly ordered COVID testing on admission here and it was again positive. Suspect patient's hypoxia is due to PE, have low concern for COVID infection that is not been fully treated. Also have low concern for secondary bacterial pneumonia given no pneumonia findings on imaging, normal WBC count and patient has been afebrile. Will hold on further treatment with steroids and antibiotics for now. Can utilize DuoNebs as needed for symptom control. 5. History of CAD s/p CABG, hypertension, hyperlipidemia ? Hospitalized here in January 2021 for NSTEMI. Found to have multivessel disease. Was transferred to [facility] and underwent CABG there. Unclear on how many bypass grafts he had done. Echo at that time showed EF 60%, no other significant abnormalities. Stable at this time. Will continue home aspirin, Coreg, nitrate, pravastatin and Zetia. Will hold Plavix as we are starting him on Eliquis as noted above. Will hold Lasix for now, restart when able. 6. History of CVA, history of bilateral carotid stenosis ? Had CVA in May 2020 suspected secondary to carotid stenosis. Saw vascular surgery in the office in June 2021. Was considered a high risk operative candidate for [place] and he was referred to [facility] for further evaluation. Unclear if patient had any procedure done for this, unable to locate records. Continued aspirin but holding home Plavix as noted above given we are initiating Eliquis for PE. 7. Parkinson's disease ? Continue home Sinemet. 8. BPH with obstructive symptoms ? Continue home Flomax. 9. Hypothyroidism ? Continue home Synthroid. DVT prophylaxis: Not indicated, on Eliquis CODE STATUS: Full code, verified. Confirmed with patient and on admission. Expected disposition: Back to SNF, D Total clinical time spent by myself addressing the patient's medical issues, reviewing all the data, and collaborating with patient's care team: 75 minutes. Charges/Coding Visit Charges Inpatient E&M: 68157 Init Hosp L3
[2024-01-28] MEDS: Ceftriaxone 2 GM in 0.9% Normal Saline (50mL MB+) 50 ML IV (13:56)
[2024-01-28] MEDS: APIXABAN 5 MG TABLET 10 MG PO ×2 (14:00→22:17)
[2024-01-28] MEDS: Azithromycin 500 MG in Dextrose 5%-Water (250mL Bag) 250 ML 250 MG IV (14:49)
[2024-01-28] MEDS: Carbidopa/Levodopa 25/100 Tablet PO (22:17)
[2024-01-28] MEDS: Ezetimibe 10 MG Tablet PO (22:17)
[2024-01-29] VITALS (10 sets, daily range): BP systolic 130–139; BP diastolic 61–72; PULSE 46–60; RESP 16–20; TEMP 36.4–36.8; O2SAT 88–98
[2024-01-29 05:43] LABS: Hematocrit 40.7 % (40-54); Hemoglobin 13.6 g/dL (13.0-16.5); Mean Corp Hgb Conc 33.4 g/dL (32-36); Mean Corpuscular Hgb 30.1 pg (27.0-32.0); Mean Platelet Vol. 11.1 fl (6.2-12.0); Platelet Count 120 K/mm3 (150-450); RBC Distribution Width CV 15.8 % (11.6-14.6); Red Blood Count 4.52 M/mm3 (4.6-6.2); White Blood Count 4.1 K/mm3 (4.4-11.0)
[2024-01-29] MEDS: Levothyroxine 50 MCG Tablet PO (06:03)
[2024-01-29 06:42] LABS: Anion Gap 4 (5-15); BUN 20 mg/dL (7-18); BUN/Creat Ratio 31.8 RATIO (10-20); Calcium,Total 8.5 mg/dL (8.5-10.1); Chloride 107 mmol/L (98-107); Creatinine, Serum 0.63 mg/dL (0.70-1.30); EST Glomerular Filtration Rate 128 mL/min (>60); Est Glom Filt Rate - Afr Amer 155 mL/min (>60); Estimated Creatinine Clearance 54.47 ml/min; Glucose 133 mg/dL (74-106); Potassium 4.1 mmol/L (3.5-5.1); Sodium Level 138 mmol/L (136-145)
[2024-01-29] MEDS: Ipratropium/Albuterol Sulfate 3 ML AMPUL.NEB INHALATION ×3 (07:25→19:17)
--- NOTE | 2024-01-29 08:29 | PN.HOSP_ITS ---
Reason for Visit Reason for Visit: Diagnoses Malignant neoplasm of esophagus, unspecified (01/28/24) Other pulmonary embolism without acute cor pulmonale (01/28/24) Hypoxemia (01/28/24) Dysphagia, unspecified (01/28/24) Objective Data Objective Data Vital Signs: Vital Signs Temp Pulse Resp BP Pulse Ox O2 Del Method O2 Flow Rate 98 F 46 L 20 H 139/64 H 98 Nasal Cannula 3 01/29/24 03:21 01/29/24 03:21 01/29/24 03:21 01/29/24 03:21 01/29/24 03:21 01/29/24 03:21 01/29/24 03:21 FiO2 97 01/28/24 17:35 Oxygen Flow Rate (L/min) 3 Oxygen Delivery Method Nasal Cannula Weight: 145 lb 1.027 oz Body Mass Index (BMI) 24.9 Intake & Output: Intake and Output for Last 24 Hours 01/27/24 01/28/24 01/29/24 23:59 23:59 23:59 Intake Total 1305 / 1305 Output Total 750 / 750 Balance 1305 / 1305 -750 / -750 Lab / Micro Data 01/29/24 05:31 01/29/24 05:31 Labs: Laboratory Results - last 24 hr 01/28/24 07:55: WBC 5.2, RBC 4.28 L, Hgb 13.1, Hct 38.9 L, MCV 90.9, MCH 30.6, MCHC 33.7, RDW Std Deviation 53.0 H, RDW Coeff of Ed 16.1 H, Plt Count 161, MPV 12.4 H, Immature Gran % (Auto) 0.800, Neut % (Auto) 72.2 H, Lymph % (Auto) 13.0 L, [place] % (Auto) 12.8 H, Eos % (Auto) 1.0, Baso % (Auto) 0.2, Absolute Neuts (auto) 3.7, Absolute Lymphs (auto) 0.67 L, Nucleated RBC % 0, D-Dimer Quant (PE/DVT) Cancelled, Sodium 139, Potassium 4.3, Chloride 105, Carbon Dioxide 31.0, Anion Gap 3 L, BUN 23 H, Creatinine 0.71, Estim Creat Clear Calc 58.70, Est GFR (MDRD) Af Amer 136, Est GFR (MDRD) Non-Af 112, BUN/Creatinine Ratio 32.6 H, Glucose 96, Calcium 8.3 L, Troponin I High Sens 11 01/28/24 09:10: D-Dimer Quant (PE/DVT) 5.45 H* 01/28/24 10:41: Troponin I High Sens 10 01/29/24 05:31: WBC 4.1 L, RBC 4.52 L, Hgb 13.6, Hct 40.7, MCV 90.0, MCH 30.1, MCHC 33.4, RDW Std Deviation 52.0 H, RDW Coeff of Ed 15.8 H, Plt Count 120 L, MPV 11.1, Sodium 138, Potassium 4.1, Chloride 107, Carbon Dioxide 27.0, Anion Gap 4 L, BUN 20 H, Creatinine 0.63 L, Estim Creat Clear Calc 54.47, Est GFR (MDRD) Af Amer 155, Est GFR (MDRD) Non-Af 128, BUN/Creatinine Ratio 31.8 H, G lucose 133 H, Calcium 8.5 Micro: Microbiology 01/28/24 17:32 Mucosa - Nasopharyngeal Respiratory Panel (PCR) - Final 01/28/24 14:05 Mucosa - Nose SARS-CoV-2, Influenza & RSV (PCR) - Final SARS-CoV-2 (COVID 19 PCR) Radiography Diagnostic Testing: Radiology Impression Chest X-Ray 01/28/24 09:11 IMPRESSION: Possible left lower lobe pneumonia or mass. Correlation with CT the chest with contrast is recommended. Electronically Signed: Lazaro Johnston MD at 9:23 EDT Reading Location ID and State: [id number] / [employer] Tel , Service support , Chest CTA 01/28/24 10:26 IMPRESSION: Positive for subsegmental pulmonary emboli in the right lung. No right heart strain. Small left pleural effusion. Bibasilar atelectasis. Electronically Signed: Lazaro Johnston MD at 12:28 EDT , ADDENDUM: 01/28/24 1244 IMPRESSION: Positive for subsegmental pulmonary emboli in the right lung. No right heart strain. Small left pleural effusion. Bibasilar atelectasis. N.B. : The above Results were Read Back by Lazaro Johnston MD to Luis Morocho MD, and understanding confirmed on 01/28/2024 12:37:59 (ET). Electronically Signed: Lazaro Johnston MD at 12:28 EDT , Physical Exam Narrative Seen and examined Patient has Parkinson disease dementia. Complete history difficult unobtainable. Patient does not remember well. Sinus bradycardia at 46/min. Has history of chronic dysphagia mainly oropharyngeal. Has esophageal cancer. intermediate resident from [facility] Physical exam: General: Alert, Oriented x3, Cooperative, thin looking. BMI 24.9 kg prescribed HEENT: Atraumatic, PERRLA, EOMI, Normocephalic Oral: Oral mucosa dry. No Gingival or Mucosal Lesions/ Ulcerations Neck: Supple, No JVD, Negative Carotid Bruits Chest wall/Lungs: Air entry diminished in bilateral lung bases. No crepitation/rhonchi. Mild hypoxia Cardiovascular: Sinus bradycardia, Normal S1, Normal S2, No M/G/R Abdomen: Bowel Sounds Present, Soft, Non Tender, Non-Distended : No dysuria. No renal angle tenderness. No suprapubic tenderness. Extremities: No edema, Capillary Refill Less than 3 Seconds Skin: No rashes, No breakdown Musculoskeletal: Mild to moderate chronic atrophy of muscles of extremities, loss of subcutaneous fat no Tenderness to Palpation of Joints or Extremities Neurological: Cranial nerves II-XII grossly intact, DTR 2+/4. No acute focal neurological deficit. Pill-rolling tremor on both hands. Psych/Mental Status: Flat affect. Amnesia. Possible dementia Assessment & Plan Assessment/Plan (1) Pulmonary embolism: (2) Hypoxia: (3) Esophageal cancer: (4) Dysphagia: PLAN: Plan Patient is an 88-year-old male who presented [facility] ED on 01/28/2024 with worsening shortness of breath. 1. Acute PE with hypoxia, low risk ? Admit under inpatient status to PCU. CTA chest showed subsegmental pulmonary emboli in the right lung with no right heart strain and small left pleural effusion. Hypoxic requiring 3 L nasal cannula on admit, not on home oxygen. Will treat with Eliquis with PE/DVT l. Echo ordered. Wean supplemental oxygen as able. 2. 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 Speech therapy consulted. Cancer was recently diagnosed during hospitalization at [facility]. 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 Has been on full liquid diet since then. Patient was evaluated by speech therapist and had modified barium swallow. Shows patient has a small vallecula and esophageal opening and 1 leak can have clear liquid. Patient also has Parkinson disease and dementia. Discussed with the patient's . Does not want PEG tube until full evaluation of esophageal cancer by Dr. Bai.. Has initial outpatient appointment with Dr. Bai scheduled for Wednesday 01/31, will need to reschedule 3. Acute on chronic debility ? PT/OT/case management consulted. Patient presented from [facility] but was not happy with the care there. Patient's will take him home with home health care. Discussed with the patient case coordinator 4. Recent COVID infection ? COVID-positive on 01/13 at outside hospital. Completed 10-day course of steroids. Mistakenly ordered COVID testing on admission here and it was again positive. Suspect patient's hypoxia is due to PE, have low concern for COVID infection that is not been fully treated. No fever. No leukocytosis. Also have low concern for secondary bacterial pneumonia given no pneumonia findings on imaging, normal WBC count and patient has been afebrile.. Can utilize DuoNebs as needed for symptom control. 5. History of CAD s/p CABG, hypertension, hyperlipidemia ? Hospitalized here in January 2021 for NSTEMI. Found to have multivessel disease. Was transferred to [facility] and underwent CABG there. Echo at that time showed EF 60%, no other significant abnormalities. Stable at this time. Will continue home aspirin, Coreg, nitrate, pravastatin and Zetia. Will hold Plavix as we are starting him on Eliquis as noted above. Hold Lasix as patient looks dehydrated. 6. History of CVA, history of bilateral carotid stenosis ? Had CVA in May 2020 suspected secondary to carotid stenosis. Saw vascular surgery in the office in June 2021. Was considered a high risk operative candidate for [place] and he was referred to [facility] for further evaluation. Unclear if patient had any procedure done for this, unable to locate records. Continued aspirin but holding home Plavix as noted above given we are initiating Eliquis for PE. 7. Parkinson's disease ? Continue home Sinemet. 8. BPH with obstructive symptoms ? Continue home Flomax. 9. Hypothyroidism ? Continue home Synthroid. DVT prophylaxis: Not indicated, on Eliquis CODE STATUS: Full code, verified. Confirmed with patient and on admission. Expected disposition: Home with home health Charges/Coding Visit Charges Inpatient E&M: 63502 Subs Hosp L2
--- NOTE | 2024-01-29 08:59 | CASEMGMT ---
Discharge Planning Updates [facility] to [facility]. Requested wknd phone/fax. Kathy Kidd DC Planning Asst.
--- NOTE | 2024-01-29 09:34 | CASEMGMT ---
Addendum entered by Marleni Villarreal 01/29/24 09:51: Discharge Planning A list of?SNF?providers including quality and resource use data and consistent with the patient's preferred geographic region, medical needs, and insurance network was created in CarePort Guide.? This list will be provided to the patient and his family. KAREN Montgomery, GURPREET Original Note: Patient is from [facility] and SW called his , Kaitlyn, to verify if patient was returning to [facility] once medically ready. Kaitlyn adamantly stated that he was not returning there due to the lack of therapy that he received in what was supposed to be a rehab stay. Kaitlyn would like help with finding new facilities or she plans to take him home. A new SNF list will be made and provided to patient's family. Plan: HHC or SNF, pending medically ready and precert KAREN Montgomery, DRIER TENDER
--- NOTE | 2024-01-29 10:27 | SP.MBSS_ITS ---
Modified Barium Swallow Patient Information Study Date: 01/29/24 Study Time: 09:30 Direct Billable Minutes: 165 Total Minutes procedure & reportin Diagnosis: Dysphagia R13.10; Esophageal cancer C15.9 Referring Physician: Denis Boswell Reason for Referral: Objectively assess swallow function, assess risk for aspiration, and determine recommendations for least restrictive diet textures and compensatory strategies to improve safety of swallow. Medical History: Pt presented to [facility] ED 01/28/2024 w/ worsening shortness of breath. Patient was recently hospitalized at [facility] from 01/13-01/19. He presented there with worsening weakness. Has history of Parkinson's disease with baseline debility but had worsening p.o. intake and weakness that led to that hospitalization. He was found to have swallowing difficulty and had an EGD that showed a 2 cm nonobstructing mass in the esophagus. Biopsy showed squamous cell carcinoma. Pt was placed on a liquid diet and tolerated it well. He was discharged to [place] for rehab on 01/19. He notably also had COVID diagnosed on that admission and completed 10 days of steroid therapy. He came to our ED from SNF today for worsening shortness of breath. Was found to be hypoxic to the mid 80s, does not wear oxygen at baseline. CTA chest showed subsegmental PE in the right lung with no right heart strain and small left pleural effusion. There notably was a 2 cm mass of decreased continuation noted at the tail the pancreas as well. Pt was admitted for management of PE. Pt was placed on a full nectar thick liquid diet w/ ASSISTANT FOOD SERVICE MANAGER consult. Per RNDarby, had been giving the patient thin supplements and juice, thickened water - unclear how thick the liquids were. ASSISTANT FOOD SERVICE MANAGER had no available documentation from SNF re: diet recommendations. He was referred to ST due to RN concerns for aspiration w/ liquid breakfast this morning. ASSISTANT FOOD SERVICE MANAGER spoke on the phone w/ . She reported recent MBSS at [facility] (hospitalization 01/13-01/19) w/ ST recommending thin liquids and physician overriding ASSISTANT FOOD SERVICE MANAGER recommendations and placing pt on thickener per report - unsure what level of thickener he was placed on. Hard chart did not provide a diet texture recommendation. Pt on full nectar/mildly thick liquid diet at the time of BSE w/ this ASSISTANT FOOD SERVICE MANAGER. Pt was also having purees w/ his . Pt also had esophagus stretched during EGD at [facility] per report. She gave ASSISTANT FOOD SERVICE MANAGER further hx re: tonsillar cancer in 1983. He had bilateral tonsillectomy and 7 weeks of radiation therapy. He had had no dysphagia work up prior to MBSS at [facility]. BSE was completed with this ASSISTANT FOOD SERVICE MANAGER, who recommended NPO w/ plan for repeat MBSS after limited trials of thin liquids resulted in extensive coughing episode w/ the patient's face turning bright red. agreeable to MBSS. PMH: Atherosclerotic heart disease of koi coronary artery without angina pectoris, NSTEMI, GERD, Non-smoker, Chest pain, HTN, Unstable angina, Carotid stenosis bilateral, Edema, Dyspnea on exertion, CAD, BPH, Stricture of esophagus, Hypothyroidism, HLD, History of cancer tonsil (1983), Arterioscle rotic cardiovascular disease. Current Diet Ordered: NPO Dentition: Edentulous Mental Status: Impaired (Poor historian - pt unaware of hx of tonsillar cancer or current esophageal tumor) Respiratory Status: Oxygenating on 3L/M nasal cannula Penetration-Aspiration Scale Penetration-Aspiration Scale: OBJECTIVE ASSESSMENT OF SWALLOW FUNCTION (QUANTITATIVE ? PER TRIAL): PENETRATION / ASPIRATION SCALE (WILKINS): 1 = does not enter airway 2 = enters airway/above vocal folds/ejected 3 = enters airway/above vocal folds/not ejected 4 = enters airway/contacts vocal folds/ejected 5 = enters airway/contacts vocal folds/not ejected 6 = enters airway/below vocal folds/ejected 7 = enters airway/below vocal folds/not ejected despite effort 8 = enters airway/below vocal folds/no effort VIDEOFLOROSCOPIC SCALE SCORE (WILKINS): Grade I = aspiration of material that has penetrated into the laryngeal vestibule, intact cough reflex Grade II = aspiration < 10 % of the bolus, intact cough reflex Grade III = aspiration of < 10 % of the bolus, reduced cough reflex or aspiration of > 10 % of the bolus, intact cough reflex Grade IV = aspiration of > 10 % of the bolus, reduced cough reflex Penetration-Aspiration Scale Score Thin Liquid via teaspoon: Result: 1= does not enter airway Thin Liquid via teaspoon Trial 2: Result: 1= does not enter airway Thin Liquid via small single sip: cup: Result: 1= does not enter airway [place] Thick Liquid via small single sip: cup: Result: 1= does not enter airway Thin Liquid via large single sip: cup: Result: 8= enters airway/below vocal folds/no effort Comment: Slightly reclined, so neck was in upright position = not effective. [place] Thick Liquid via small single sip: cup Trial 2: Result: 8= enters airway/below vocal folds/no effort Comment: Slightly reclined, so neck was in upright position = not effective. Esophageal screen - minimal retention in upper esophagus, mild retention in distal esophagus. Pudding via teaspoon: Comment: Unable to provide PAS score as the bolus could not clear past the patient's vallecula Thin Liquid via teaspoon Trial 3: Result: 8= enters airway/below vocal folds/no effort [place] Thick Liquid via teaspoon: Result: 8= enters airway/below vocal folds/no effort Oral Phase Labial Seal: Escape progressing to mid-chin Tongue Control During Bolus Hold: Posterior escape of greater than half of bolus Bolus Transport/Lingual Motion: Repetitive/disorganized tongue motion Oral Residue: Residue collection on oral structures Pharyngeal Phase Initiation of Pharyngeal Swallow: Bolus head in pyriforms Soft Palate Elevation: No bolus between soft palate and pharyngeal wall Laryngeal Elevation: Min superior movement thyroid cart/min apprx aryte cart- epig petiole Anterior Hyoid Excursion: Partial anterior movement Epiglottic Movement: Partial inversion (little to no inversion) Laryngeal Vestibule Closure at Height of Swallow: None; wide column of air/contrast in laryngeal vestibule (some elevation, but wide column of contrast in laryngeal vestibule at height of swallow) Pharyngeal Stripping Wave: Absent Pharyngoesophageal Segment Opening: Minimal distension and minimal duration; marked obstruction of flow Tongue Base Retraction: No contrast between tongue base and posterior pharyngeal wall (minimal to no tongue base retraction) Pharyngeal Residue: Minimal to no pharyngeal clearance Esophageal Phase Esophageal Clearance: Esophageal retention Treatment Strategies Effects of treatment strategies attemped:: Cued cough and re-swallow = somewhat effective Diagnosis/Impression Diagnosis: Severe oropharyngeal dysphagia R13.12 Impression: Pt is very kyphotic. ASSISTANT FOOD SERVICE MANAGER attempted reclining posture during the middle of the MBSS to achieve a more upright position w/ the patient's neck; however, pt had increased aspiration risk in this position. The oral phase is primarily marked by... -Decreased bolus control w/ posterior loss of >1/2 of thin and mildly/nectar thick liquids to the pyriform sinuses prior to swallow onset. -Oral residues requiring multiple swallows to clear. -Disorganized tongue motion for lingual transport. -Did NOT assess mastication as the patient was not safe for cookie given HIGH choking risk w/ solid foods. The pharyngeal phase is primarily marked by... -Severely decreased pharyngeal motility with no pharyngeal stripping wave, minimal TB retraction, and minimal UES opening/duration. Pt unable to clear pudding trial from pharynx and ASSISTANT FOOD SERVICE MANAGER utilized Yankauer suction to clear a majority of the trial. -Decreased airway closure during the trials due to minimal laryngeal elevation, anterior hyoid excursion, and epiglottic inversion. SILENT aspiration of thin and thickened liquids. Cued cough and re-swallow was most effective in decreasing amount of aspiration. The esophageal phase is primarily marked by... -Mild retention of nectar/mildly thick barium in distal esophagus, minimal retention in upper esophagus. -Min retrograde flow of thin liquids through UES. -CP bar at the level of C5-C6, which did impact bolus clearance through the UES. -Anterior esophageal webbing also observed in upper esophagus during MBSS. Recommendations Diet: Thin Liquids (FULL THIN LIQUID DIET) Comment: -Frequent oral care -Recommend bolus control cup or straw (10cc) - pt's has bolus control cup at home and will bring it in -ASSISTANT FOOD SERVICE MANAGER thoroughly reviewed results of MBSS w/ patient and , Kaitlyn. Kaitlyn was agreeable to proceed w/ full thin liquid diet textures. ASSISTANT FOOD SERVICE MANAGER discussed concerns for inability to consume adequate nutrition/hydration via mouth; however, ASSISTANT FOOD SERVICE MANAGER does not feel patient is clinically appropriate for PEG tube placement due to comorbidities, including Parkinson's w/ and physician concern for underlying dementia. Pt's reported that they were supposed to meet w/ oncology today as an OP (CC) to discuss cancer treatment options. also reported that PEG placement would be last resort for the patient. ASSISTANT FOOD SERVICE MANAGER spoke w/ Dr. Boswell re: result and recommendations for MBSS, as well as ASSISTANT FOOD SERVICE MANAGER concerns for inadequate nutrition/hydration by mouth and need for PEG placement if pursuing oncology treatment for esophageal tumor. ASSISTANT FOOD SERVICE MANAGER encouraged pt's to have a discussion w/ Dr. Boswell re: quality of life concerns and goals for medical care. -ASSISTANT FOOD SERVICE MANAGER discussed this MBSS and patient w/ nut tightener, Nomi, with goal of placing a diet order that was least restrictive and allowed the patient to have thin, blenderized puree textures, such as thin, blenderized soups, veggies, etc. Regular - Puree / Thin liquid diet was placed with the following comments: NO THICK PUREE, THIN CONSISTENCIES ONLY. Accounting Professional, Nomi, is communicating to dietary staff the importance of the patient not receiving thick, puree consistencies as he required Yankauer suction to clear pudding from oropharynx during MBSS. Compensatory Strategies: Liquid by Teaspoon Only (Cough and re-swallow after every 2-3 sips), Slow Rate, Multiple Swallows, Sitting upright (Abdomen upright 90 degrees) and Remain sitting upright for 30 minutes after PO intake Supervision: Assist as needed and 1:1 Close Supervision ( ok to provide supervision and assistance) Recommend Repeat Modified Barium Swallow: TBD Need for Skilled Speech Therapy Services: Yes Recommended Referrals: Dietitian Consult Education Completed: 1. Described result of evaluation., 4. Family/caregivers understand evaluation & agree w/ goals & tx plan. and 7. Pt requires further education on strategies & risks. Status Active ST Patient: Active Contact Information [facility] Speech Therapy:: Georgia Bowen M.A. CCC-ASSISTANT FOOD SERVICE MANAGER? Speech-Language Pathologist?? [facility] [address] [place] [address]? ?? [phone]
[2024-01-29] MEDS: 0.9% Saline Lock 10 ML Syringe IV (10:31)
--- NOTE | 2024-01-29 12:04 | CASEMGMT ---
This JOANN and JOANN Gomes met with patient's Kaitlyn. Introduced selves and role at [facility]. JOANN spoke with Kaitlyn about choosing another facility. JOANN went to offer Kaitlyn a list of [facility]ci facility providers including quality and resource use data and consistent with patient?s preferred geographic region, medical needs, and insurance network were provided from the CarePort Guide. Kaitlyn stated she is aware of the facilities, but she has a bad taste in her mouth from patient's stay at [place]. Kaitlyn said she is thinking she would like to take patient home with home health care. JOANN told Kaitlyn that we can see how patient does with therapy and go from there. JOANN and OLIVIA CURIEL will continue to follow and assist with d/c planning. JOANN did update RN CM that patient's is thinking home with home health. Though this may not be realistic. JOANN and RN MOISÉS to follow. Mariel Reina GREEN MEAT PACKER SHAWN
[2024-01-29] MEDS: Carbidopa/Levodopa 25/100 Tablet PO ×2 (12:42→17:11)
[2024-01-29] MEDS: Pravastatin 40 MG Tablet PO (12:42)
[2024-01-29] MEDS: APIXABAN 5 MG TABLET 10 MG PO ×2 (12:42→22:48)
--- NOTE | 2024-01-29 12:47 | CHAPLAIN ---
Type of Pastoral Visit _x__ Initial Visit ___ Follow-up Visit ___ On-call Visit ___ General Patient Visit ___ Spiritual Assessment ___ Family Conference ___ Bereavement ___ Rapid Response ___ Code Blue ___ Other (describe below) Pastoral Care Referral From _x__ Patient _x__ Family ___ Nurse ___ Physician ___ Insurance Attorney ___ Photographer Lithographic ___ Other (describe below) Sacrament/Intervention _x__ Active listening ___ Anointing ___ Orthodoxy ___ Bereavement ___ Communion ___ Carline exploration ___ _x__ Life review _x__ Prayer ___ Reconciliation ___ Sacrament of Sick _x__ Supportive presence ___ Wedding ___ Other (describe below) Pastoral Comments patient is alert but limited in conversation; spouse is with him and answers most questions for him and engages in conversation with the office support specialist; pt is addressed directly by this office support specialist and he easily follows the conversation and watches/speaks with his eyes; pt is tearful at times during the visit; pt has had many health issues and surgeries over the past years; spouse is unhappy with previous SNF where the therapy was insufficient in her opinion; need for this patient is for improved health and a new/better living arrangement; spouse is a vocal advocate; both talk about the patient's hobby of flower growing; 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
[2024-01-29] MEDS: Ensure Plus High Protein 120 ML LIQUID PO ×2 (12:53→17:23)
--- NOTE | 2024-01-29 14:00 | CASEMGMT ---
OLIVIA CURIEL NOTE: Per therapy, pt safe to discharge home and HHC recommended. OLIVIA CURIEL to room. Pt sitting up in chair, @ bedside, spoon-feeding pt. Discussed discharge plan. states she was thankful to see how well pt was moving and wishes to take him home @ discharge instead of going to a SNF. Discussed HHC. She would like HHC and [facility] was her 1st preference, declining list of other HHC Options, unless [facility] unable to accept pt. [facility], but they are unable to accept pt. made aware and a list of HHC providers including quality and resource use data and consistent with the patient?s preferred geographic region, medical needs, and insurance network were provided from the CarePort Guide. maria m Chavez acute care nursing assistant to f/u with on other choices. Discussed possible need of O2 @ discharge. [employer] is her first preference. Discussed home O2 set-up process, should he qualify for O2, and questions answered. She voices understanding. They used to have a pulse ox, but it quit working and she discarded it. Recommended purchase of another one and states they can afford this. Discussed Palliative care and questions answered. very interested in this. Order received from Dr Boswell and referral sent to [facility] palliative via e-mail. provided palliative info sheet. Pt to discharge home on Eliquis. would like to get meds @ dc from [facility] Retail pharmacy and made aware Eliquis savings card will be applied. Also provided w/the Eliquis 30-day free trial card, in the event she ends up getting medication from another pharmacy @ sd. made aware this is a [id number] use card. Discussed DME w/. She states pt has a walker that they got through his insurance in 2020, she thinks. She considered getting a rollator, but states does not feel it is needed at this time. She states she will take a script for it, so she has it in case she decides to get one. She was made aware insurance may not cover for any of a rollator, as he got the walker through his insurance in past 5 yrs. She voices understanding. A script was provided for a rollator and she was made aware of locations she could purchase one as well. Discussed private-duty home health aides. They already have [facility] lined up, but she did take list of other agencies as a resource, if needed. made aware Dr Elbert anticipates pt will be medically ready to discharge tomorrow. She states she was not prepared to have pt come home that soon and does not think she will be able to have the house rearranged for him so safely go home by tomorrow. She states pt's bedroom is on 2nd floor and she plans to do FFSU, but states she needs to purchase a twin bed and needs to have a small fridge and freezer moved so the bed can be set up. She will contact family to assist w/this. She declines needing/wanting hospital bed, but she does plan on purchasing a bed rail for the bed, as recommended by therapy. Discussed places this could be purchased. denies having other discharge needs at this time. Made aware to ask for CM if any further needs arise. Georgia WOODSON RN CM
--- NOTE | 2024-01-29 15:04 | CASEMGMT ---
Addendum entered by Kathy Kidd 01/29/24 15:21: All three agencies declined. OLIVIA CM updated. Kathy Kidd DC Planning Asst. Original Note: Discharge Planning HH referral sent to [facility], and [facility] . Kathy Kidd DC Planning Asst.
--- NOTE | 2024-01-29 15:37 | CASEMGMT ---
Addendum entered by Kathy Kidd 01/29/24 16:06: [facility], and [facility] accepted. [facility] and [facility] declined. Pt choice is [facility]. OLIVIA CURIEL and all agencies updated. Wknd phone/fax requested from [facility]. Kathy Kidd DC Planning Asst. Original Note: Discharge Planning Referral sent via CarePort to [facility], [facility], [facility], [facility], [facility], and [facility]. Kathy Kidd DC Planning Asst.
[2024-01-29] MEDS: Isosorbide DN 10 MG Tablet PO (22:46)
[2024-01-29] MEDS: Carvedilol 3.125 MG TABLET PO (22:46)
[2024-01-29] MEDS: Ezetimibe 10 MG Tablet PO (22:49)
[2024-01-30 03:00] VITALS: BP 122/68; PULSE 63; RESP 16; TEMP 36.6; O2SAT 95
[2024-01-30] MEDS: Levothyroxine 50 MCG Tablet PO (05:49)
[2024-01-30 07:15] LABS: Anion Gap 2 (5-15); BUN 21 mg/dL (7-18); BUN/Creat Ratio 34.2 RATIO (10-20); Calcium,Total 8.2 mg/dL (8.5-10.1); Chloride 106 mmol/L (98-107); Creatinine, Serum 0.61 mg/dL (0.70-1.30); EST Glomerular Filtration Rate 132 mL/min (>60); Est Glom Filt Rate - Afr Amer 159 mL/min (>60); Estimated Creatinine Clearance 54.47 ml/min; Glucose 96 mg/dL (74-106); Sodium Level 138 mmol/L (136-145)
[2024-01-30 07:17] VITALS: PULSE 56; RESP 16; O2SAT 95
[2024-01-30 07:17] LABS: Absolute Lymphocyte Count 0.61 X10^3/uL (0.83-4.51); Absolute Neutrophil Count 4.7 X10^3/uL (2.0-7.7); Basophil# 0.01 X10^3/uL; Basophil% 0.2 % (0-1); Eosinophil# 0.01 X10^3/uL; Eosinophils% 0.2 % (0-5); Hemoglobin 13.1 g/dL (13.0-16.5); Lymphocyte # 0.61 X10^3/ul (0.83-4.51); Lymphocyte % 10.6 % (19-41); Mean Corp Hgb Conc 33.6 g/dL (32-36); Mean Corpuscular Hgb 29.8 pg (27.0-32.0); Mean Corpuscular Volume 88.8 fL (80-94); Mean Platelet Vol. 11.5 fl (6.2-12.0); Monocyte# 0.46 X10^3/uL; NRBC Flagged by Analyzer 0 % (0-5); Neutrophil # 4.66 X10^3/uL (2.7-7.7); Neutrophil % 80.7 % (47-70); Platelet Count 116 K/mm3 (150-450); RBC Distribution Width CV 15.5 % (11.6-14.6); RBC Distribution Width SD 51.1 fl (35.1-43.9); Red Blood Count 4.39 M/mm3 (4.6-6.2); White Blood Count 5.8 K/mm3 (4.4-11.0)
[2024-01-30] MEDS: Ipratropium/Albuterol Sulfate 3 ML AMPUL.NEB INHALATION ×2 (07:17→19:22)
[2024-01-30 10:37] VITALS: BP 117/68; PULSE 54; RESP 16; TEMP 36.8; O2SAT 93
[2024-01-30] MEDS: Carbidopa/Levodopa 25/100 Tablet PO ×2 (10:44→16:48)
[2024-01-30] MEDS: Carvedilol 3.125 MG TABLET PO ×2 (10:44→21:47)
[2024-01-30] MEDS: APIXABAN 5 MG TABLET 10 MG PO ×2 (10:44→21:47)
[2024-01-30] MEDS: Pravastatin 40 MG Tablet PO (10:44)
[2024-01-30] MEDS: Tamsulosin HCl 0.4 MG Capsule PO (10:44)
[2024-01-30] MEDS: Cholecalciferol (Vit D3) 125 MCG CAPSULE (5,000 UNITS) PO (10:44)
[2024-01-30] MEDS: Aspirin 81 MG TAB.CHEW PO (10:46)
--- NOTE | 2024-01-30 13:17 | CASEMGMT ---
OLIVIA CURIEL NOTE: Per , they have not purchased a twin bed yet to set up on first-floor for pt yet and the home is not ready for pt to discharge today. She states her family is out scouting for a bed today. She is hopeful that they will have things set up for pt to discharge home tomorrow. Dr Boswell made aware. Georgia WOODSON RN, CM
--- NOTE | 2024-01-30 14:06 | PCM.PN.HOSP ---
Reason for Visit Reason for Visit: Diagnoses Malignant neoplasm of esophagus, unspecified (01/28/24) Other pulmonary embolism without acute cor pulmonale (01/28/24) Hypoxemia (01/28/24) Dysphagia, unspecified (01/28/24) Objective Data Objective Data Vital Signs: Vital Signs Temp Pulse Resp BP Pulse Ox O2 Del Method O2 Flow Rate 98.3 F 54 L 16 117/68 93 Nasal Cannula 2 01/30/24 10:37 01/30/24 10:37 01/30/24 10:37 01/30/24 10:37 01/30/24 10:37 01/30/24 10:37 01/30/24 10:37 FiO2 97 01/28/24 17:35 Oxygen Flow Rate (L/min) 2 Oxygen Delivery Method Nasal Cannula Weight: 145 lb 1.027 oz Body Mass Index (BMI) 24.9 Intake & Output: Intake and Output for Last 24 Hours 01/28/24 01/29/24 01/30/24 23:59 23:59 23:59 Intake Total 1305 / 1305 300 / 300 Output Total 750 / 750 250 / 250 Balance 1305 / 1305 -750 / -510 50 / 50 Medical Nutrition Assessment Dietitian: Malnutrition Criteria Met Start: 01/29/24 15:20 Freq: Status: Active Protocol: Document 01/29/24 15:20 SB (Rec: 01/29/24 15:20 SB [id number]) Nutrition Malnutrition Evidence of Malnutrition Exists Yes Malnutrition (severe): Chronic Evidenced By Weight Loss (Severe),Physical Changes (Moderate) Clinical Problem Chronic Disease or Condition Related Malnutrition Etiology severe malnutrition related to esophageal cancer Signs/Symptoms as evidenced by 9.4% unintentional weight loss x 3 months and moderate wasting in clavicle region. Status Active Problem Recommendation Dietitian Recommendations/Changes Continue regular diet and consistency/texture per [employer] recommendations. Continue 120ml ensure plus high protein to TID daily with medpass. Will order vanilla magic cup with lunch an dinner. Will monitor weight, as available. Reviewed and approved by Charity Sylvester RD, LD. Lab / Micro Data 01/30/24 05:45 01/30/24 05:45 Labs: Laboratory Results - last 24 hr 01/30/24 05:45: WBC 5.8, RBC 4.39 L, Hgb 13.1, Hct 39.0 L, MCV 88.8, MCH 29.8, MCHC 33.6, RDW Std Deviation 51.1 H, RDW Coeff of Ed 15.5 H, Plt Count 116 L, MPV 11.5, Immature Gran % (Auto) 0.300, Neut % (Auto) 80.7 H, Lymph % (Auto) 10.6 L, Whitman % (Auto) 8.0, Eos % (Auto) 0.2, Baso % (Auto) 0.2, Absolute Neuts (auto) 4.7, Absolute Lymphs (auto) 0.61 L, Nucleated RBC % 0, Sodium 138, Potassium 4.0, Chloride 106, Carbon Dioxide 30.0, Anion Gap 2 L, BUN 21 H, Creatinine 0.61 L, Estim Creat Clear Calc 54.47, Est GFR (MDRD) Af Amer 159, Est GFR (MDRD) Non-Af 132, BUN/Creatinine Ratio 34.2 H, Glucose 96, Calcium 8.2 L Micro: Microbiology 01/28/24 17:32 Mucosa - Nasopharyngeal Respiratory Panel (PCR) - Final 01/28/24 14:05 Mucosa - Nose SARS-CoV-2, Influenza & RSV (PCR) - Final SARS-CoV-2 (COVID 19 PCR) Physical Exam Narrative Seen and examined Patient does not have any chest pain or shortness of breath. Had short run of NSVT. Probably from noncardiac region as he has dysphagia from esophageal cancer. Serum potassium normal. Patient has Parkinson disease dementia. Sinus bradycardia Has history of chronic dysphagia mainly oropharyngeal dysphagia.residential resident from [facility] Physical exam: General: Alert, Oriented x3, Cooperative, thin looking. BMI 24.9 kg prescribed HEENT: Atraumatic, PERRLA, EOMI, Normocephalic Oral: Oral mucosa dry. No Gingival or Mucosal Lesions/ Ulcerations Neck: Supple, No JVD, Negative Carotid Bruits Chest wall/Lungs: Air entry diminished in bilateral lung bases. No crepitation/rhonchi. Mild hypoxia Cardiovascular: Sinus bradycardia, Normal S1, Normal S2, No M/G/R Abdomen: Bowel Sounds Present, Soft, Non Tender, Non-Distended : No dysuria. No renal angle tenderness. No suprapubic tenderness. Extremities: No edema, Capillary Refill Less than 3 Seconds Skin: No rashes, No breakdown Musculoskeletal: Mild to moderate chronic atrophy of muscles of extremities, loss of subcutaneous fat no Tenderness to Palpation of Joints or Extremities Neurological: Cranial nerves II-XII grossly intact, DTR 2+/4. No acute focal neurological deficit. Pill-rolling tremor on both hands. Psych/Mental Status: Flat affect. Amnesia. Possible dementia Assessment & Plan Assessment/Plan (1) Pulmonary embolism: (2) Hypoxia: (3) Esophageal cancer: (4) Dysphagia: PLAN: Plan Patient is an 88-year-old male who presented [facility] ED on 01/28/2024 with worsening shortness of breath. 1. Acute PE with hypoxia, low risk ? Admit under inpatient status to PCU. CTA chest showed subsegmental pulmonary emboli in the right lung with no right heart strain and small left pleural effusion. Hypoxic requiring 3 L nasal cannula on admit, not on home oxygen. Will treat with Eliquis with PE/DVT l. Echo ordered. Wean supplemental oxygen as able. 01/29: On apixaban 10 mg twice daily. 2. 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 Speech therapy consulted. Cancer was recently diagnosed during hospitalization at [facility]. 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 Has been on full liquid diet since then. Patient was evaluated by speech therapist and had modified barium swallow. Shows patient has a small vallecula and esophageal opening and 1 leak can have clear liquid. Patient also has Parkinson disease and dementia. Discussed with the patient's . Does not want PEG tube until full evaluation of esophageal cancer by Dr. Bai.. Has initial outpatient appointment with Dr. Bai scheduled for Wednesday 01/31, will need to reschedule 01/29: Patient has moderate chronic protein calorie malnutrition probably from inadequate calorie met from oral intake. Patient is only on liquid diet permitted by speech therapist. 3. Acute on chronic debility ? PT/OT/case management consulted. Patient presented from [facility] but was not happy with the care there. Patient's will take him home with home health care. Discussed with the onsite case manager 4. Recent COVID infection ? COVID-positive on 01/13 at outside hospital. Completed 10-day course of steroids. Mistakenly ordered COVID testing on admission here and it was again positive. Suspect patient's hypoxia is due to PE, have low concern for COVID infection that is not been fully treated. No fever. No leukocytosis. Also have low concern for secondary bacterial pneumonia given no pneumonia findings on imaging, normal WBC count and patient has been afebrile.. Can utilize DuoNebs as needed for symptom control. 5. History of CAD s/p CABG, hypertension, hyperlipidemia ? Hospitalized here in January 2021 for NSTEMI. Found to have multivessel disease. Was transferred to [facility] and underwent CABG there. Echo at that time showed EF 60%, no other significant abnormalities. Stable at this time. Will continue home aspirin, Coreg, nitrate, pravastatin and Zetia. Will hold Plavix as we are starting him on Eliquis as noted above. Hold Lasix as patient looks dehydrated. 01/29: Patient had short run of NSVT. Does not seem cardiac origin as patient does not have chest pain or shortness of breath. Possible noncardiac from esophageal cancer/dysphagia. Serum potassium normal. Serum mag and phosphorus ordered. 6. History of CVA, history of bilateral carotid stenosis ? Had CVA in May 2020 suspected secondary to carotid stenosis. Saw vascular surgery in the office in June 2021. Was considered a high risk operative candidate for [place] and he was referred to [facility] for further evaluation. Unclear if patient had any procedure done for this, unable to locate records. Continued aspirin but holding home Plavix as noted above given we are initiating Eliquis for PE. 7. Parkinson's disease ? Continue home Sinemet. 8. BPH with obstructive symptoms ? Continue home Flomax. 9. Hypothyroidism ? Continue home Synthroid. DVT prophylaxis: Not indicated, on Eliquis CODE STATUS: Full code, verified. Confirmed with patient and on admission. Expected disposition: Home with home health Charges/Coding Visit Charges Inpatient E&M: 03126 Subs Hosp L2
[2024-01-30 14:59] LABS: Magnesium 2.1 mg/dL (1.6-2.6); Phosphorus 1.9 mg/dL (2.5-4.9)
[2024-01-30 15:00] VITALS: BP 119/63; PULSE 53; RESP 16; TEMP 36.9; O2SAT 93
[2024-01-30] MEDS: Ensure Plus High Protein 120 ML LIQUID PO (16:48)
[2024-01-30 19:23] VITALS: PULSE 55; RESP 16; O2SAT 94
[2024-01-30 21:46] VITALS: BP 128/53; PULSE 57; RESP 16; TEMP 36.8; O2SAT 95
[2024-01-30] MEDS: Ezetimibe 10 MG Tablet PO (21:47)
[2024-01-31 03:45] VITALS: BP 147/80; PULSE 55; RESP 18; TEMP 36.4; O2SAT 96
[2024-01-31 05:32] LABS: Absolute Lymphocyte Count 0.74 X10^3/uL (0.83-4.51); Basophil# 0.01 X10^3/uL; Basophil% 0.3 % (0-1); Eosinophil# 0.07 X10^3/uL; Eosinophils% 2.2 % (0-5); Hematocrit 39.7 % (40-54); Hemoglobin 13.3 g/dL (13.0-16.5); Lymphocyte # 0.74 X10^3/ul (0.83-4.51); Lymphocyte % 22.9 % (19-41); Mean Corp Hgb Conc 33.5 g/dL (32-36); Mean Corpuscular Volume 89.6 fL (80-94); Mean Platelet Vol. 11.4 fl (6.2-12.0); Monocyte# 0.39 X10^3/uL; Monocyte% 12.1 % (0-10); NRBC Flagged by Analyzer 0 % (0-5); Neutrophil % 61.9 % (47-70); Platelet Count 114 K/mm3 (150-450); RBC Distribution Width CV 15.6 % (11.6-14.6); RBC Distribution Width SD 51.3 fl (35.1-43.9); Red Blood Count 4.43 M/mm3 (4.6-6.2); White Blood Count 3.2 K/mm3 (4.4-11.0)
[2024-01-31] MEDS: Levothyroxine 50 MCG Tablet PO (05:34)
[2024-01-31 05:52] VITALS: PULSE 53; RESP 18
[2024-01-31] MEDS: Ipratropium/Albuterol Sulfate 3 ML AMPUL.NEB INHALATION ×2 (05:52→12:24)
[2024-01-31 05:55] LABS: Anion Gap 3 (5-15); BUN 19 mg/dL (7-18); BUN/Creat Ratio 33.2 RATIO (10-20); Calcium,Total 8.7 mg/dL (8.5-10.1); Chloride 105 mmol/L (98-107); Creatinine, Serum 0.57 mg/dL (0.70-1.30); EST Glomerular Filtration Rate 143 mL/min (>60); Est Glom Filt Rate - Afr Amer 173 mL/min (>60); Estimated Creatinine Clearance 54.47 ml/min; Glucose 94 mg/dL (74-106); Sodium Level 137 mmol/L (136-145)
[2024-01-31] MEDS: APIXABAN 5 MG TABLET 10 MG PO (09:00)
[2024-01-31] MEDS: Tamsulosin HCl 0.4 MG Capsule PO (09:00)
[2024-01-31] MEDS: Carbidopa/Levodopa 25/100 Tablet PO ×2 (09:00→12:55)
[2024-01-31] MEDS: Cholecalciferol (Vit D3) 125 MCG CAPSULE (5,000 UNITS) PO (09:00)
[2024-01-31] MEDS: Isosorbide DN 10 MG Tablet PO (09:00)
[2024-01-31] MEDS: Pravastatin 40 MG Tablet PO (09:02)
[2024-01-31] MEDS: Aspirin 81 MG TAB.CHEW PO (09:03)
[2024-01-31] MEDS: Ensure Plus High Protein 120 ML LIQUID PO ×2 (09:03→12:56)
--- NOTE | 2024-01-31 09:29 | DCINST_ITS ---
Discharge Instructions Diet Discharge Diet: - (Liquid diet only. Continue following speech therapist as outpatient) Activity Discharge Activity: Return to Normal Activity Weight Bearing Status: Weight bearing as tolerated Dressing / Incision Call your doctor if you observe: Fever of 101 or Higher, Coldness, Increased Pain, Numbness or Tingling, Change in Color, Inability to urinate, Inability to have a bowel movement, Shortness of breath, Dizziness, Fainting spells, Swelling in the ankles, Chest pain, Prolonged hiccupping, Increased palpitations (irregular heartbeat) and Calf discomfort Follow Up Care When: IN 2 WEEKS Test Results: Test results from this visit will be discussed in further detail at your follow- up appointment, if applicable. Discharge Plan Admission Admit Date/Time: 01/28/24 13:25 Primary Reason for Your Visit: Acute PE Attending Provider: Denis Boswell Primary Care Provider: Nisa Mejia Consulting Providers: Yariel Ha Discharge Orders/Prescriptions Prescriptions: New Eliquis 5 mg Tablet See Rx Instructions .ROUTE .COMPLEX 30 Days Qty: 66 3RF Rx Instructions: Eliquis 10 mg twice daily for 5 more days till 02/05/2024 and then 5 mg twice daily to continue for 6 months from 02/06/2020 acetaminophen 650 mg/20.3 mL Solution 500 mg PO Q8H PRN (Reason: Pain 1-10 Or Fever) Qty: 0 0RF Rx Instructions: Paaz-vhs-kajrimt isosorbide dinitrate 10 mg Tablet 10 mg PO BID 30 Days Qty: 60 0RF Rx Instructions: Hold for SBP less than 120 mmHg Continued levothyroxine 50 mcg tablet 50 mcg PO DAILY cholecalciferol (vitamin D3) 5,000 unit tablet,disintegrating 2,000 unit PO DAILY aspirin [Adult Aspirin Regimen] 81 mg tablet,delayed release (DR/EC) 81 mg PO DAILY Adult 50 Plus Probiotic 4 billion cell capsule 4,000 mmu cells PO DAILY Rx Instructions: administer with a meal multivitamin Tablet 1 tab PO DAILY vit C,W-Gm-veydt-lutein-zeaxan 1 EACH capsule 1 ea PO BID ezetimibe 10 MG tablet 10 mg PO QHS Patient Comments: TAKE 1 TABLET BY MOUTH EVERY DAY pravastatin 20 mg tablet 40 mg PO DAILY tamsulosin 0.4 mg capsule 0.4 mg PO DAILY carbidopa-levodopa 25-100 mg tablet 2 tab PO TID carvedilol [Coreg] 3.125 mg tablet 3.125 mg PO BID Qty: 60 11RF Rx Instructions: must administer with a meal/food melatonin 3 mg tablet 3 mg PO HS PRN (Reason: Sleep) polyethylene glycol 3350 [Miralax] 17 gram/dose powder 17 g PO DAILY PRN (Reason: BMs) furosemide 20 mg tablet 20 mg PO DAILY Patient Comments: per pts no longer taking. Changed acetaminophen 500 mg tablet 1,000 mg PO Q8H PRN PRN (Reason: Pain) 30 Days Qty: 0 0RF Held clopidogrel 75 MG tablet 75 mg PO DAILY Hold Instructions: Hold it while taking Eliquis Patient Comments: TWICE A WEEK Discontinued isosorbide mononitrate 30 mg tablet extended release 24 hr 30 mg PO DAILY Referrals / Follow Up: Luis Morocho DO [Emergency Provider] - Within 2 Weeks (Recent diagnosis of PE. Dysphagia on liquid diet.) Roddy Bai DO [Med Staff - Active Staff] - Within 2 Weeks (For esophageal Cancer ) Nisa Mejia PA [Primary Care Provider] - Disposition Disposition (needs filled in before D/C Order can be placed): Home Health Service
--- NOTE | 2024-01-31 09:40 | PCM.DC.SUM ---
Providers Date of Admission: 01/28/24 Date of Discharge: 01/31/24 Primary Care Physician: KANDY Mayers Reason For Visit: PE W/ HYPOXIA IN SETTING OF CANCER W/ METS Diagnosis Discharge Diagnosis (1) Pulmonary embolism: Status: Acute Code(s): I26.99 - Other pulmonary embolism without acute cor pulmonale (2) Hypoxia: Status: Acute Code(s): R09.02 - Hypoxemia (3) Esophageal cancer: Status: Acute Code(s): C15.9 - Malignant neoplasm of esophagus, unspecified (4) Dysphagia: Status: Acute Code(s): R13.10 - Dysphagia, unspecified Plan Patient is an 88-year-old male who presented [facility] ED on 01/28/2024 with worsening shortness of breath. 1. Acute PE with hypoxia, low risk ? Admit under inpatient status to PCU. CTA chest showed subsegmental pulmonary emboli in the right lung with no right heart strain and small left pleural effusion. Hypoxic requiring 3 L nasal cannula on admit, not on home oxygen. Will treat with Eliquis with PE/DVT l. Echo ordered. Wean supplemental oxygen as able. 01/29: On apixaban 10 mg twice daily. 01/30: Patient tolerating Eliquis good. H&H 13.3/39.7%. Platelet count 114,000. No significant drop. Patient is discharged on apixaban 10 mg twice daily 5 more days (he had 2 days while inpatient) and then 5 mg twice daily to continue. Prescription given. 2. 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 Speech therapy consulted. Cancer was recently diagnosed during hospitalization at [facility]. 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 Has been on full liquid diet since then. Patient was evaluated by speech therapist and had modified barium swallow. Shows patient has a small vallecula and esophageal opening and 1 leak can have clear liquid. Patient also has Parkinson disease and dementia. Discussed with the patient's . Does not want PEG tube until full evaluation of esophageal cancer by Dr. Bai.. Has initial outpatient appointment with Dr. Bai scheduled for Wednesday 01/31, will need to reschedule 01/29: Patient has moderate chronic protein calorie malnutrition probably from inadequate calorie met from oral intake. Patient is only on liquid diet permitted by speech therapist. 3. Acute on chronic debility ? PT/OT/case management consulted. Patient presented from [facility] but was not happy with the care there. Patient's will take him home with home health care. Discussed with the medical case manager 4. Recent COVID infection ? COVID-positive on 01/13 at outside hospital. Completed 10-day course of steroids. Mistakenly ordered COVID testing on admission here and it was again positive. Suspect patient's hypoxia is due to PE, have low concern for COVID infection that is not been fully treated. No fever. No leukocytosis. Also have low concern for secondary bacterial pneumonia given no pneumonia findings on imaging, normal WBC count and patient has been afebrile.. Can utilize DuoNebs as needed for symptom control. 5. History of CAD s/p CABG, hypertension, hyperlipidemia ? Hospitalized here in January 2021 for NSTEMI. Found to have multivessel disease. Was transferred to [facility] and underwent CABG there. Echo at that time showed EF 60%, no other significant abnormalities. Stable at this time. Will continue home aspirin, Coreg, nitrate, pravastatin and Zetia. Will hold Plavix as we are starting him on Eliquis as noted above. Hold Lasix as patient looks dehydrated. 01/29: Patient had short run of NSVT. Patient has history of CAD and CABG but does not have acute chest pain or shortness of breath or change in clinical status. Patient has esophageal cancer. Serum potassium normal. Serum mag and phosphorus were ordered 01/30: Serum mag and phosphorus were reviewed yesterday. Magnesium 2.1. Phosphorus 1.9. Neutra-Phos ordered. Patient given prescription for Neutra-Phos 6. History of CVA, history of bilateral carotid stenosis ? Had CVA in May 2020 suspected secondary to carotid stenosis. Saw vascular surgery in the office in June 2021. Was considered a high risk operative candidate for Luz and he was referred to [facility] for further evaluation. Unclear if patient had any procedure done for this, unable to locate records. Continued aspirin but holding home Plavix as noted above given we are initiating Eliquis for PE. 7. Parkinson's disease ? Continue home Sinemet. 8. BPH with obstructive symptoms ? Continue home Flomax. 9. Hypothyroidism ? Continue home Synthroid. DVT prophylaxis: Not indicated, on Eliquis CODE STATUS: Full code, verified. Confirmed with patient and on admission. Discharge medication reconciliation done. Discharge follow-up instructions completed. Discharge process discussed with the patient and all questions were answered to patient's satisfaction. Follow with PCP in 1 to 2 weeks Total time spent, exact 35 minutes on discharge meds reconciliation, examination, coordination of care with nurses and ancillary staff, review of imaging and blood test and discussion with the patient on follow-up instructions. Medications at Discharge Home Medications clopidogrel 75 mg tablet 75 mg PO DAILY 07/31/16 vit C 250 mg-vit E 90 mg-zinc 40 mg-copper 1 hc-mnnbkf-gqnzii capsule 1 ea PO BID 07/31/16 ezetimibe 10 mg tablet 10 mg PO QHS 08/01/18 aspirin 81 mg tablet,delayed release (Adult Aspirin Regimen) 81 mg PO DAILY 05/30/19 cholecalciferol (vitamin D3) 125 mcg (5,000 unit) disintegrating tablet 2,000 unit PO DAILY 05/30/19 levothyroxine 50 mcg tablet 50 mcg PO DAILY 05/30/19 lactobacillus combination no.9 4 billion cell capsule (Adult 50 Plus Probiotic) 4,000 mmu cells PO DAILY 05/31/19 multivitamin 1 tab PO DAILY 05/31/19 carvedilol 3.125 mg tablet (Coreg) 3.125 mg PO BID #60 tabs 07/05/19 furosemide 20 mg tablet 20 mg PO DAILY fluid 03/07/21 melatonin 3 mg tablet 3 mg PO HS PRN Sleep 03/07/21 polyethylene glycol 3350 17 gram/dose oral powder (Miralax) 17 g PO DAILY PRN BMs 03/07/21 pravastatin 20 mg tablet 40 mg PO DAILY 07/01/21 carbidopa 25 mg-levodopa 100 mg tablet 2 tab PO TID parkinsons 01/28/24 tamsulosin 0.4 mg capsule 0.4 mg PO DAILY 01/28/24 acetaminophen 500 mg tablet 1,000 mg (2 x 500 mg) PO Q8H PRN PRN Pain 30 days #0 tabs 01/31/24 acetaminophen 650 mg/20.3 mL oral solution 500 mg (15.6154 mL) PO Q8H PRN Pain 1-10 Or Fever #0 mL 01/31/24 apixaban 5 mg tablet (Eliquis) See Rx Instructions .Route .COMPLEX 1 month #66 tabs 01/31/24 isosorbide dinitrate 10 mg tablet 10 mg PO BID 1 month #60 tabs 01/31/24 potassium, sodium phosphates 280 mg-160 mg-250 mg oral powder packet (Phos-NaK) 1 packet PO TID 3 days #9 ea 01/31/24 Physical Exam Narrative Seen and examined Patient does not have any chest pain or shortness of breath. Serum potassium normal. Serum phosphorus, 2.0 low therefore getting replaced Patient has Parkinson disease dementia. Sinus bradycardia Has history of chronic dysphagia mainly oropharyngeal dysphagia.[facility] resident from [facility]. Liquid diet only permitted by speech therapist Physical exam: General: Alert, Oriented x3, Cooperative, thin looking. BMI 24.9 kg prescribed HEENT: Atraumatic, PERRLA, EOMI, Normocephalic Oral: Oral mucosa moist. No Gingival or Mucosal Lesions/ Ulcerations Neck: Supple, No JVD, Negative Carotid Bruits Chest wall/Lungs: Air entry diminished in bilateral lung bases. No crepitation/rhonchi. Mild hypoxia Cardiovascular: Sinus bradycardia, Normal S1, Normal S2, No M/G/R Abdomen: Bowel Sounds Present, Soft, Non Tender, Non-Distended : No dysuria. No renal angle tenderness. No suprapubic tenderness. Extremities: No edema, Capillary Refill Less than 3 Seconds Skin: No rashes, No breakdown Musculoskeletal: Mild to moderate chronic atrophy of muscles of extremities, loss of subcutaneous fat no Tenderness to Palpation of Joints or Extremities Neurological: Cranial nerves II-XII grossly intact, DTR 2+/4. No acute focal neurological deficit. Pill-rolling tremor on both hands. Psych/Mental Status: Flat affect. Amnesia. Possible dementia Medical Records Data Medical Nutrition Assessment Dietitian: Malnutrition Criteria Met Start: 01/29/24 15:20 Freq: Status: Active Protocol: Document 01/29/24 15:20 SB (Rec: 01/29/24 15:20 SB [id number]) Nutrition Malnutrition Evidence of Malnutrition Exists Yes Malnutrition (severe): Chronic Evidenced By Weight Loss (Severe),Physical Changes (Moderate) Clinical Problem Chronic Disease or Condition Related Malnutrition Etiology severe malnutrition related to esophageal cancer Signs/Symptoms as evidenced by 9.4% unintentional weight loss x 3 months and moderate wasting in clavicle region. Status Active Problem Recommendation Dietitian Recommendations/Changes Continue regular diet and consistency/texture per [employer] SERVICE TECHNICIAN recommendations. Continue 120ml ensure plus high protein to TID daily with medpass. Will order vanilla magic cup with lunch an dinner. Will monitor weight, as available. Reviewed and approved by Charity Sylvester RD, LD. Weight / BMI Weight Weight: 145 lb 1.027 oz Body Mass Index (BMI) 24.9 ABG / Lab / Microbiology Data 01/31/24 04:30 01/31/24 04:30 Laboratory: Laboratory Results - last 24 hr 01/30/24 14:20: Phosphorus 1.9 L, Magnesium 2.1 01/31/24 04:30: WBC 3.2 L, RBC 4.43 L, Hgb 13.3, Hct 39.7 L, MCV 89.6, MCH 30.0, MCHC 33.5, RDW Std Deviation 51.3 H, RDW Coeff of Ed 15.6 H, Plt Count 114 L, MPV 11.4, Immature Gran % (Auto) 0.600, Neut % (Auto) 61.9, Lymph % (Auto) 22.9, [place] % (Auto) 12.1 H, Eos % (Auto) 2.2, Baso % (Auto) 0.3, Absolute Neuts (auto) 2.0, Absolute Lymphs (auto) 0.74 L, Nucleated RBC % 0, Sodium 137, Potassium 4.0, Chloride 105, Carbon Dioxide 29.0, Anion Gap 3 L, BUN 19 H, Creatinine 0.57 L, Estim Creat Clear Calc 54.47, Est GFR (MDRD) Af Amer 173, Est GFR (MDRD) Non-Af 143, BUN/Creatinine Ratio 33.2 H, Glucose 94, Calcium 8.7 Microbiology: Microbiology 01/28/24 17:32 Mucosa - Nasopharyngeal Respiratory Panel (PCR) - Final 01/28/24 14:05 Mucosa - Nose SARS-CoV-2, Influenza & RSV (PCR) - Final SARS-CoV-2 (COVID 19 PCR) D/C Instructions Discharge Diet: - (Liquid diet only. Continue following speech therapist as outpatient) Weight Bearing Status: Weight bearing as tolerated Call your doctor if you observe: Fever of 101 or Higher, Coldness, Increased Pain, Numbness or Tingling, Change in Color, Inability to urinate, Inability to have a bowel movement, Shortness of breath, Dizziness, Fainting spells, Swelling in the ankles, Chest pain, Prolonged hiccupping, Increased palpitations (irregular heartbeat) and Calf discomfort When: IN 2 WEEKS Meaningful Use Info Meaningful Use Meaningful Use Diagnoses (Choose all that apply): VTE Ischemic Stroke Statin Dosing Therapy Reference: STATIN DOSE THERAPY REFERENCE: * Patients > 75 years receive moderate or high dose statin therapy. * Patients 75 years or YOUNGER should receive HIGH intensity statin dose unless contraindicated. You will be required to document reason for non-treatment if statin daily dose does not meet guidelines. HIGH DOSE STATIN THERAPY DAILY Atorvastatin > than or = to 40 mg Rosuvastatin > than or = to 20 mg Amlodipine + Atorvastatin > than or = to 2.5/40 mg Ezetimibe + Simvastatin 10/80 mg Simvastatin 80mg VTE Anticoag overlap given w/in hospital stay or rx'd at dc?: Yes Pt receive overlap for 5 days?: No Reason overlap not ordered, prescribed, or given for 5 days: Procedure Not Indicated Discharge Plan Admission Admit Date/Time: 01/28/24 13:25 Primary Reason for Your Visit: Acute PE Attending Provider: Denis Boswell Primary Care Provider: Nisa Mejia Consulting Providers: Yariel Ha Discharge Orders/Prescriptions Prescriptions: New Eliquis 5 mg Tablet See Rx Instructions .ROUTE .COMPLEX 30 Days Qty: 66 3RF Rx Instructions: Eliquis 10 mg twice daily for 5 more days till 02/05/2024 and then 5 mg twice daily to continue for 6 months from 02/06/2020 acetaminophen 650 mg/20.3 mL Solution 500 mg PO Q8H PRN (Reason: Pain 1-10 Or Fever) Qty: 0 0RF Rx Instructions: [id number] isosorbide dinitrate 10 mg Tablet 10 mg PO BID 30 Days Qty: 60 0RF Rx Instructions: Hold for SBP less than 120 mmHg potassium, sodium phosphates [Phos-NaK] 280-160-250 mg powder in packet 1 packet PO TID 3 Days Qty: 9 0RF Rx Instructions: Pharmacy can dispense it is available formulary, does not have to be exact brand Continued levothyroxine 50 mcg tablet 50 mcg PO DAILY cholecalciferol (vitamin D3) 5,000 unit tablet,disintegrating 2,000 unit PO DAILY aspirin [Adult Aspirin Regimen] 81 mg tablet,delayed release (DR/EC) 81 mg PO DAILY Adult 50 Plus Probiotic 4 billion cell capsule 4,000 mmu cells PO DAILY Rx Instructions: administer with a meal multivitamin Tablet 1 tab PO DAILY vit C,A-Bd-xnijb-lutein-zeaxan 1 EACH capsule 1 ea PO BID ezetimibe 10 MG tablet 10 mg PO QHS Patient Comments: TAKE 1 TABLET BY MOUTH EVERY DAY pravastatin 20 mg tablet 40 mg PO DAILY tamsulosin 0.4 mg capsule 0.4 mg PO DAILY carbidopa-levodopa 25-100 mg tablet 2 tab PO TID carvedilol [Coreg] 3.125 mg tablet 3.125 mg PO BID Qty: 60 11RF Rx Instructions: must administer with a meal/food melatonin 3 mg tablet 3 mg PO HS PRN (Reason: Sleep) polyethylene glycol 3350 [Miralax] 17 gram/dose powder 17 g PO DAILY PRN (Reason: BMs) furosemide 20 mg tablet 20 mg PO DAILY Patient Comments: per pts no longer taking. Changed acetaminophen 500 mg tablet 1,000 mg PO Q8H PRN PRN (Reason: Pain) 30 Days Qty: 0 0RF Held clopidogrel 75 MG tablet 75 mg PO DAILY Hold Instructions: Hold it while taking Eliquis Patient Comments: TWICE A WEEK Discontinued isosorbide mononitrate 30 mg tablet extended release 24 hr 30 mg PO DAILY Referrals / Follow Up: Luis Morocho DO [Emergency Provider] - Within 2 Weeks (Recent diagnosis of PE. Dysphagia on liquid diet.) Roddy Bai DO [Med Staff - Active Staff] - Within 2 Weeks (For esophageal Cancer ) Nisa Mejia PA [Primary Care Provider] - Disposition Disposition (needs filled in before D/C Order can be placed): Home Health Service Charges/Coding Visit Charges Inpatient E&M: 59270 Disch Hosp >30min
[2024-01-31 09:45] VITALS: BP 131/101; PULSE 49; RESP 18; TEMP 36.8; O2SAT 96
[2024-01-31 09:47] VITALS: O2SAT 90; O2SAT 95
[2024-01-31] MEDS: Na Biphos/Potassium Phosphate PACKET 1 PACKET PO ×2 (10:50→13:57)
[2024-01-31 12:24] VITALS: PULSE 58; RESP 20; O2SAT 93
[2024-01-31 14:11] VITALS: BP 109/68; PULSE 67; RESP 18; TEMP 36.8; O2SAT 93
== END 2024-01-31 15:00 | disposition home health service (06) | DRG 176 ==
LOC: ED 13:35 → PCU 01-29 07:18
PROVIDERS: Admitting Provider Hospitalist; Emergency Provider Emergency Medicine; PCP Physician Assistant; Visit Provider Internal Medicine
DX: I26.93 Single subsegmental thrombotic pulmonary embolism without acute cor pulmonale (principal); E44.0 Moderate protein-calorie malnutrition; N13.8 Other obstructive and reflux uropathy; C15.9 Malignant neoplasm of esophagus, unspecified; E03.9 Hypothyroidism, unspecified; R13.10 Dysphagia, unspecified; F02.80 Dementia in other diseases classified elsewhere, unspecified severity, without behavioral disturbance, psychotic disturbance, mood disturbance, and anxiety; G20.A1 Parkinson's disease without dyskinesia, without mention of fluctuations; I65.29 Occlusion and stenosis of unspecified carotid artery; I10 Essential (primary) hypertension; E78.5 Hyperlipidemia, unspecified; I25.2 Old myocardial infarction; I25.10 Atherosclerotic heart disease of native coronary artery without angina pectoris; Z79.82 Long term (current) use of aspirin; R09.02 Hypoxemia; Z95.5 Presence of coronary angioplasty implant and graft; Z86.73 Personal history of transient ischemic attack (TIA), and cerebral infarction without residual deficits; N40.1 Benign prostatic hyperplasia with lower urinary tract symptoms; Z79.02 Long term (current) use of antithrombotics/antiplatelets; Z79.899 Other long term (current) drug therapy; Z79.890 Hormone replacement therapy; Z98.49 Cataract extraction status, unspecified eye; R53.81 Other malaise; Z95.1 Presence of aortocoronary bypass graft; Z68.24 Body mass index [BMI] 24.0-24.9, adult; Z86.16 Personal history of COVID-19
CPT/HCPCS: 36415; 71046; 71275; 74230; 80048; 83735; 84100; 84484; 85025; 85027; 85379; 87631; 87633; 92526; 92610; 92611; 93005; 94640; 97110; 97162; 97166; 97530; 97802; 99285; J7030; J7050; Q9967; A4216; J0696